=== PATIENT | female | born 1965 | race Caucasian/White ===

== ENCOUNTER 2020-06-04 16:01 | Outpatient (REF) | payer OTHER, SELFPAY ==
--- NOTE | 2020-06-04 17:06 | XR_ITS ---
EXAMINATION: XR KNEE, LEFT CLINICAL INFORMATION: Pain COMPARISON: None TECHNIQUE: Two views of the left knee. FINDINGS: Bones and soft tissues are normal. No fracture or joint effusion. Alignment is anatomic. Joint spaces are well maintained. No abnormal soft tissue calcification. XR/XR knee LT 2V IMPRESSION: Normal left knee.
== END 2020-06-04 16:02 | disposition home or self-care (01) ==
LOC: HO.XRAY 16:01
PROVIDERS: PCP Internal Medicine; Visit Provider Nurse Practitioner Family
DX: M25.562 Pain in left knee (principal)
CPT/HCPCS: 73560

== ENCOUNTER 2020-06-09 09:09 | Outpatient (REF) | payer OTHER, SELFPAY ==
[2020-06-09 09:33] LABS: MANUAL DIFF FLAG NO
[2020-06-09 09:34] LABS: Basophils Absolute Auto 0.1 X10*3/uL (0.0-0.2); Basophils Percent Auto 0.9 % (0-2); Eosinophils Absolute Auto 0.2 X10*3/uL (0.0-0.4); Eosinophils Percent Auto 2.9 % (0-4); Hematocrit 41.5 % (37-47); Imm Gran Abs Auto 0.01 X10*3/uL (0.00-0.03); Imm Gran Pct Auto 0.2 % (0.0-0.4); Lymphocytes Absolute Auto 1.7 X10*3/uL (1.2-4.9); Lymphocytes Percent Auto 31.8 % (20-40); Mean Corpuscular HGB Conc 31.3 g/dl (31.0-35.0); Mean Corpuscular Hemoglobin 24.6 pg (27.0-33.0); Mean Corpuscular Volume 78.4 fL (80-98); Mean Platelet Volume 10.8 fL (9.4-12.3); Monocytes Absolute Auto 0.5 X10*3/uL (0.1-1.2); Monocytes Percent Auto 9.9 % (2-11); Neutrophils Percent Auto 54.3 % (45-73); Platelet Count 281 X10*3/uL (160-400); Red Blood Count 5.29 X10*6/uL (4.20-5.50); Red Cell Distribution Width 14.3 % (11.0-16.0); White Blood Count 5.5 X10*3/uL (4.8-10.8)
[2020-06-09 09:55] LABS: Anion Gap 10 (12-20); Blood Urea Nitrogen 15 mg/dL (9-16); Calcium 8.6 mg/dL (8.4-10.2); Carbon Dioxide 29 mmol/L (22-29); Chloride 105 mmol/L (96-108); Estimated Glomerular Filt Rate > 60; Glucose Fasting 116 mg/dL (60-99); Potassium 4.2 mmol/l (3.3-5.1); Sodium 140 mmol/L (135-145)
[2020-06-09 10:34] LABS: Erythrocyte Sedimentation Rate 10 MM/HR (0-20)
== END 2020-06-09 09:10 | disposition home or self-care (01) ==
LOC: HO.LAB 09:09
PROVIDERS: PCP Internal Medicine; Visit Provider Nurse Practitioner Family
DX: M25.562 Pain in left knee (principal)
CPT/HCPCS: 36415; 80048; 85025; 85652

== ENCOUNTER 2020-08-28 06:21 | Outpatient (REF) | payer OTHER, SELFPAY ==
[2020-08-28 07:07] LABS: MANUAL DIFF FLAG NO
[2020-08-28 07:16] LABS: Basophils Percent Auto 0.5 % (0-2); Eosinophils Absolute Auto 0.2 X10*3/uL (0.0-0.4); Eosinophils Percent Auto 2.8 % (0-4); Hematocrit 40.4 % (37-47); Hemoglobin 12.7 g/dl (12.0-16.0); Imm Gran Abs Auto 0.02 X10*3/uL (0.00-0.03); Imm Gran Pct Auto 0.3 % (0.0-0.4); Lymphocytes Absolute Auto 1.8 X10*3/uL (1.2-4.9); Lymphocytes Percent Auto 29.1 % (20-40); Mean Corpuscular HGB Conc 31.4 g/dl (31.0-35.0); Mean Corpuscular Hemoglobin 24.7 pg (27.0-33.0); Mean Corpuscular Volume 78.6 fL (80-98); Mean Platelet Volume 11.2 fL (9.4-12.3); Monocytes Absolute Auto 0.6 X10*3/uL (0.1-1.2); Neutrophils Absolute Auto 3.4 X10*3/uL (2.0-8.3); Neutrophils Percent Auto 57.3 % (45-73); Platelet Count 284 X10*3/uL (160-400); Red Blood Count 5.14 X10*6/uL (4.20-5.50); Red Cell Distribution Width 14.6 % (11.0-16.0)
[2020-08-28 07:41] LABS: Alanine Aminotransferase 20 U/L (0-31); Alkaline Phosphatase 97 U/L (39-117); Anion Gap 13 (12-20); Aspartate Amino Transferase 16 U/L (5-31); Bilirubin Total 0.3 mg/dL (0.0-1.0); Blood Urea Nitrogen 18 mg/dL (9-16); Calcium 8.9 mg/dL (8.4-10.2); Carbon Dioxide 24 mmol/L (22-29); Chloride 105 mmol/L (96-108); Cholesterol 162 mg/dL; Estimated Glomerular Filt Rate > 60; Glucose Fasting 122 mg/dL (60-99); HDL Cholesterol 41 mg/dL; LDL Cholesterol Calculated 107 mg/dl; Potassium 4.4 mmol/l (3.3-5.1); Sodium 138 mmol/L (135-145); Triglycerides 72 mg/dL
== END 2020-08-28 06:22 | disposition home or self-care (01) ==
LOC: HO.LAB 06:21
PROVIDERS: Visit Provider Internal Medicine
DX: E78.5 Hyperlipidemia, unspecified (principal); R73.02 Impaired glucose tolerance (oral); R42 Dizziness and giddiness
CPT/HCPCS: 36415; 80053; 80061; 85025

== ENCOUNTER 2020-09-29 10:20 | Outpatient (REF) | payer OTHER, SELFPAY ==
--- NOTE | ~2020-09-29 | XR_ITS ---
EXAMINATION: XR LUMBOSACRAL SPINE CLINICAL INFORMATION: Left-sided sciatica COMPARISON: Previous x-ray from 2015 TECHNIQUE: Three views of the lumbosacral spine. FINDINGS: Bone alignment is normal. No fracture or dislocation is seen. There is mild degenerative spondylosis at L2-L3 and L3-L4. Disc spaces are normal. Paraspinal soft tissues are normal. XR/XR lumbar spine 2-3V IMPRESSION: Mild degenerative spondylosis at L2-L3 and L3-L4.
== END 2020-09-29 10:21 | disposition home or self-care (01) ==
LOC: HO.XRAY 10:20
PROVIDERS: PCP Internal Medicine; Visit Provider Internal Medicine
DX: M54.32 Sciatica, left side (principal)
CPT/HCPCS: 72100

== ENCOUNTER 2020-11-30 15:00 | Outpatient (RCR) | payer OTHER, SELFPAY ==
--- NOTE | 2020-10-29 16:17 | MHC.PT.EP ---
[facility] [place] Office [place] Office [place] Office [address] Adalid Berman [address] [phone] F: [phone] F: [phone] F: [phone] F: [phone] Physical Therapy Plan of Care Date of Evaluation: 10/29/20 Date of Surgery: NA Diagnosis: L SIDED SCIATICA Assessment: Pt IS 54 YO F REFERRED TO PT FROM DR ARRIETA WITH L SIDED SCIATICA. PRESENTS WITH C/O PAIN L LB WHICH STARTED ABOUT 1 MONTH AGO WHEN SHE BENT OVER TO PICK SOMETHING UP. Pt PRESENTS WITH SOME DECREASED LUMBAR AND LE FLEXIBILITY, DECREASED CORE STRENGTH, AND PAIN WITH TTP LUMBAR PARASPINALS AND GLUT MMS. Pt WORKS A [employer] 40HRS/WK. SHE SHOULD BENEFIT FROM PT TO ADDRESS THESE ISSUES. OF NOTE, Pt ALSO C/O BALANCE PROBLEM (WHICH SHE TAKES ANTIVERT FOR). MAY BENEFIT FROM VESTIBULAR EVAL Frequency and Duration: The patient will be seen 2X/WK X 6WKS Short Term Goals: 1.INCREASED POSTURE AWARENESS AND AWARENESS BACK CARE 2. Pt TO PERF 2-3 TASKS WITH PROPER BODY MECH Care Home Goals: 1. DECREASED BACK PAIN AT LEAST 50% WITH ADLS 2. I HEP WITH DC EX PLAN 3. IMPROVED MODIFIED OSWESTRY Treatment Plan: Modalities to reduce pain, spasms and effusion. Manual therapy to restore motion and function. Therapeutic exercise to improve strength and flexibility. Neuromuscular re-education for posture and balance. Therapeutic activities to return to functional activities of daily living. Electronically signed by: ANATOLIY CLARK PT Please sign and return to therapist. Thank you for your referral.
--- NOTE | 2020-12-01 09:32 | MHC.PT.DC ---
[facility] [place] Office [place] Office [place] Office [address] Adalid Berman [address] [phone] F: [phone] F: [phone] F: [phone] F: [phone] Physical Therapy Discharge Report Diagnosis: L SIDED SCIATICA Date of Surgery: NA Date of Evaluation: 10/29/20 Date of Discharge: 11/30/20 Treatments to Date: 6 Cancellations to Date: No Shows to Date: Discharge Status: Achieved Goals Independent with HEP Discharge Summary: GOOD PERF OF EXS AND STRETCHES, AGREES WITH DC Electronically signed by: ANATOLIY CLARK PT Please sign and return to therapist. Thank you for your referral.
== END 2020-12-01 09:33 | disposition other institution (70) ==
LOC: HO.PT 15:00
PROVIDERS: PCP Internal Medicine; Visit Provider Internal Medicine
DX: M54.32 Sciatica, left side (principal)
CPT/HCPCS: 97110; 97161

== ENCOUNTER 2021-03-01 15:45 | Outpatient (REF) | payer OTHER, SELFPAY ==
--- NOTE | ~2021-03-01 | MM_ITS ---
EXAMINATION: MM SCREENING DIGITAL BREAST TOMOSYNTHESIS, BILATERAL CLINICAL INFORMATION: Screening. Asymptomatic. The lifetime risk of breast cancer based on the Tyrer-Cuzick Model is 7%. COMPARISON: Mammography: 10/26/2018, 12/03/2016, 05/23/2016 TECHNIQUE: Digital breast tomosynthesis is performed in both the craniocaudal and mediolateral oblique views along with computer-aided detection (CAD). Synthesized 2D images are generated from the tomosynthesis. FINDINGS: There are scattered areas of fibroglandular density (ACR BI-RADS breast composition Category b). There are no significant masses, abnormal calcifications, or other abnormalities. There is a small circumscribed nodule again noted anterior 3:00 right breast similar to mildly decreased from prior exams. The axilla and skin contours are unremarkable. No significant changes. MM/MM tomosynthesis screening BI IMPRESSION: No mammographic evidence of malignancy. ASSESSMENT: BI-RADS 2: Benign RECOMMENDATION: Routine annual mammography screening. This patient's information was entered into a reminder system with a target due date for their next mammogram.
== END 2021-03-01 15:46 | disposition home or self-care (01) ==
LOC: HO.MAMMO 15:45
PROVIDERS: Visit Provider Internal Medicine
DX: Z12.31 Encounter for screening mammogram for malignant neoplasm of breast (principal)
CPT/HCPCS: 77063; 77067

== ENCOUNTER 2021-07-05 08:26 | Outpatient (REF) | payer OTHER, SELFPAY ==
[2021-07-05 09:04] LABS: Alanine Aminotransferase 22 U/L (0-31); Alkaline Phosphatase 102 U/L (39-117); Anion Gap 11 (12-20); Aspartate Amino Transferase 18 U/L (5-31); Bilirubin Total 0.4 mg/dL (0.0-1.0); Blood Urea Nitrogen 17 mg/dL (9-16); Calcium 9.4 mg/dL (8.4-10.2); Carbon Dioxide 25 mmol/L (22-29); Chloride 107 mmol/L (96-108); Estimated Glomerular Filt Rate > 60; Glucose Fasting 118 mg/dL (60-99); Potassium 4.4 mmol/L (3.3-5.1); Sodium 139 mmol/L (135-145)
== END 2021-07-05 08:27 | disposition home or self-care (01) ==
LOC: HO.LAB 08:26
PROVIDERS: PCP Internal Medicine; Visit Provider Internal Medicine
DX: R73.02 Impaired glucose tolerance (oral) (principal)
CPT/HCPCS: 36415; 80053

== ENCOUNTER 2021-08-17 09:14 | Outpatient (REF) | payer OTHER, SELFPAY ==
[2021-08-17 10:27] LABS: Alanine Aminotransferase 27 U/L (0-31); Albumin Level 4.1 g/dL (3.5-5.0); Alkaline Phosphatase 107 U/L (39-117); Anion Gap 9 (12-20); Aspartate Amino Transferase 18 U/L (5-31); Bilirubin Total 0.3 mg/dL (0.0-1.0); Blood Urea Nitrogen 14 mg/dL (9-16); Calcium 9.8 mg/dL (8.4-10.2); Carbon Dioxide 29 mmol/L (22-29); Chloride 107 mmol/L (96-108); Estimated Glomerular Filt Rate > 60; Glucose Fasting 118 mg/dL (60-99); Potassium 4.4 mmol/L (3.3-5.1); Sodium 141 mmol/L (135-145); Total Protein 7.4 g/dL (6.5-8.0)
== END 2021-08-17 09:15 | disposition home or self-care (01) ==
LOC: HO.LAB 09:14
PROVIDERS: Visit Provider Internal Medicine
DX: R73.02 Impaired glucose tolerance (oral) (principal)
CPT/HCPCS: 36415; 80053

== ENCOUNTER 2021-11-07 15:33 | Emergency (ER) | payer OTHER, SELFPAY ==
--- NOTE | ~2021-11-07 | CT_ITS ---
EXAMINATION: CT CERVICAL SPINE WITHOUT CONTRAST CLINICAL INFORMATION: C5-C6 radicular pain on the left side. COMPARISON: MRI scan of the cervical spine 03/09/2020. TECHNIQUE: A noncontrast axial CT scan of the cervical spine was obtained. Coronal and sagittal reformatted images were generated at the acquisition workstation. This CT examination was performed using dose optimization techniques as appropriate, variously including the following: *Automated exposure control *Adjustment of mA and/or kV according to patient size (this includes techniques or standardized protocols for targeted exams where dose is matched to indication/reason for exam; i.e. extremities or head) *Use of iterative reconstruction technique DLP: 426 mGy-cm FINDINGS: There is mild reversal of the cervical lordosis at C3-C4. There is narrowing of intervertebral disc height at multiple levels, most severe at C3-C4 and C5-C6. There are multilevel degenerative endplate contour changes. Vertebral body heights are maintained and no acute fractures are demonstrated. There may be a hemangioma in the right aspect of the body of C3. There is an area of sclerosis in the superior body of T1. There are mildly prominent level IIA lymph nodes bilaterally The other paravertebral soft tissues and the visualized intracranial contents are unremarkable. The lung apices are well-aerated. Spinal levels: C2-C3: There is moderate left facet arthropathy with suggestion of erosive changes. Posterior disc contour is normal. There is no central stenosis. The neural foramina are patent bilaterally. C3-C4: There is mild left facet arthropathy. There is a broad-based posterior disc protrusion with mild central stenosis. There are uncovertebral osteophytes, and there is moderate left and mild right foraminal narrowing. C4-C5: The facet joints appear normal. There is a small posterior disc protrusion with minimal central stenosis. The neural foramina appear patent bilaterally. C5-C6: The facet joints appear normal. The posterior disc osteophyte complex, with mild central stenosis. There are uncovertebral osteophytes, and there is moderate left and mild right foraminal narrowing. C6-C7: The facet joints appear normal. There is a posterior disc osteophyte complex, and there is mild central stenosis. There are uncovertebral osteophytes and there is mild bilateral foraminal narrowing. C7-T1: The facet joints appear normal bilaterally. Posterior disc contour is normal. There is no spinal cord compression or central stenosis. The neural foramina are patent bilaterally. CT/CT cervical spine wo con IMPRESSION: 1. There are no acute fractures or subluxations. 2. There is multilevel spondylosis with narrowing of intervertebral disc height at multiple levels and there are degenerative endplate contour changes. There is multilevel facet arthropathy. There is minimal central stenosis at C3-C4 and C4-C5. 3. There is moderate left and mild right foraminal narrowing at C3-C4 and C5-C6.
[2021-11-07 16:44] VITALS: BP 139/87; PULSE 91; RESP 18; TEMP 36.5; O2SAT 100; BMI 34.7
--- NOTE | 2021-11-07 16:51 | ECG_ITS ---
Test Reason : shoulder pain Blood Pressure : / mmHG Vent. Rate : 086 BPM Atrial Rate : 086 BPM P-R Int : 146 ms QRS Dur : 084 ms QT Int : 364 ms P-R-T Axes : 057 -01 034 degrees QTc Int : 435 ms Normal sinus rhythm Normal ECG No significant changes when compared with the previous EKG of 09 jul 2016 Referred By: Josias Josue Electronically Signed By:DAYNA YEH
[2021-11-07 17:14] LABS: MANUAL DIFF FLAG NO
[2021-11-07 17:15] LABS: Basophils Absolute Auto 0.1 X10*3/uL (0.0-0.2); Basophils Percent Auto 0.7 % (0-2); Eosinophils Absolute Auto 0.2 X10*3/uL (0.0-0.4); Eosinophils Percent Auto 3.2 % (0-4); Hematocrit 41.4 % (37.0-47.0); Hemoglobin 13.2 g/dl (12.0-16.0); Imm Gran Abs Auto 0.02 X10*3/uL (0.00-0.03); Imm Gran Pct Auto 0.3 % (0.0-0.4); Lymphocytes Absolute Auto 2.4 X10*3/uL (1.2-4.9); Lymphocytes Percent Auto 31.4 % (20-40); Mean Corpuscular HGB Conc 31.9 g/dl (31.0-35.0); Mean Corpuscular Hemoglobin 24.7 pg (27.0-33.0); Mean Corpuscular Volume 77.4 fL (80.0-98.0); Mean Platelet Volume 10.6 fL (9.4-12.3); Monocytes Absolute Auto 0.8 X10*3/uL (0.1-1.2); Monocytes Percent Auto 10.9 % (2-11); Neutrophils Percent Auto 53.5 % (45-73); Platelet Count 300 X10*3/uL (160-400); Red Blood Count 5.35 X10*6/uL (4.20-5.50); White Blood Count 7.5 X10*3/uL (4.8-10.8)
[2021-11-07 17:31] LABS: Anion Gap 13 (12-20); Blood Urea Nitrogen 18 mg/dL (9-16); Calcium 9.7 mg/dL (8.4-10.2); Carbon Dioxide 26 mmol/L (22-29); Chloride 105 mmol/L (96-108); Creatinine Clr Calc Pharmacy 86.1; Estimated Glomerular Filt Rate > 60; Glucose Random 76 mg/dL (60-115); Potassium 4.1 mmol/L (3.3-5.1); Sodium 140 mmol/L (135-145)
[2021-11-07 17:36] LABS: Troponin-I High Sensitivity < 3.5 ng/L (<3.5-17.0)
--- NOTE | 2021-11-07 18:40 | ED_ITS ---
HPI - General Adult General Chief complaint: General Medical Stated complaint: Head pain/shoulder pain Time Seen by Provider: 11/07/21 18:40 Source: patient Limitations: language barrier History of Present Illness HPI narrative: patient with no history of arthritis complaining of left side of the neck pain with radiation of pain to the left upper for last 3 weeks with tingling sensation no weakness no headache no nausea no vomiting patient taking Tylenol without any relief no chest pain or shortness of breath no cough Related Data Home Medications Medication Instructions Recorded Confirmed cromolyn 4 % eye drops 1 drp OPHTHALMIC (EYE) QID 06/04/20 08/28/21 fluticasone propionate 50 2 spray INTRANASAL DAILY 06/04/20 08/28/21 mcg/actuation nasal spray,suspension (Allergy Relief (fluticasone)) Previous Rx's Medication Instructions Recorded hydrocortisone 1 % topical cream 1 appl TOPICAL TID PRN 30 Days 03/07/21 (Anti-Itch (hydrocortisone)) #28.4 g ibuprofen 600 mg tablet 600 mg PO TID PRN 90 Days #270 tab 03/07/21 ketotifen fumarate 0.025 % (0.035 1 drp OPHTHALMIC (EYE) Q12H 15 03/07/21 %) eye drops (Allergy Eye Days #5 ml (ketotifen)) meclizine 25 mg tablet 25 mg PO TID PRN 90 Days #270 tab 03/07/21 triamcinolone acetonide 0.1 % 1 appl TOPICAL BID 30 Days #30 g 03/07/21 topical cream cholecalciferol (vitamin D3) 50 50 mcg PO DAILY 90 Days #90 cap 07/09/21 mcg (2,000 unit) capsule tizanidine 4 mg tablet 4 mg PO BEDTIME PRN 30 Days #30 tab 07/09/21 cyclobenzaprine 10 mg tablet 10 mg PO Q8H #20 tab 11/07/21 prednisone 20 mg tablet 40 mg PO DAILY #10 tab 11/07/21 tramadol 50 mg tablet 50 mg PO Q6H PRN #20 tab 11/07/21 Allergies Allergy/AdvReac Type Severity Reaction Status Date / Time Penicillins [PENICILLINS] Allergy Intermediate RASH Verified 11/07/21 16:44 seafood Allergy Intermediate Anaphylaxis Verified 11/07/21 16:44 Review of Systems Review of Systems: Yes all other systems are reviewed and are negative PMFSH Past Medical History Medical History Impaired glucose tolerance Knee pain Left knee pain Left sided sciatica Obesity (BMI 35.0-39.9 without comorbidity) Physical exam Vertigo Surgical History History of tubal ligation Skin cancer Family History Family History Father Throat cancer Mother Diabetes Hypertension Daughter In good health Sister In good health Son In good health Brother In good health Social History Social History Housing: Apartment Alcohol intake: current Alcohol intake frequency: holidays/special occasions only Alcohol type: wine Patient Tobacco Use Status: Never used Tobacco e-Cigarette/Vaping Use: Never Used Second Hand Smoke Exposure: No Advance Directives: No Advance Directives Information Provided: Yes Patient : No service: No Current occupational status: employed Current occupational exposures/hazards: No Physical Exam ED Vital Signs: Vital Signs - 24 hr 11/07/21 16:44 11/07/21 19:05 11/07/21 20:00 Temperature 97.7 F 97.8 F Pulse Rate 91 82 94 Respiratory Rate 18 18 15 Blood Pressure 139/87 141/86 H 130/90 H Pulse Oximetry 100 99 98 BMI result Body Mass Index 34.7 Appearance: Alert. Oriented X3. No acute distress. Eyes: PERRLA, No Nystagmus ENT: Pharynx normal. Oral Mucosa moist Neck: Normal inspection. Neck supple. tenderness in mid cervical area CVS: Normal heart rate and rhythm. Pulses normal. Respiratory: No respiratory distress. Equal air entry bilateral, no wheezing/rales/rhonchi Abdomen: Soft and nontender. Bowel sounds are present, no mass palpable, no CVA tenderness Skin: Skin warm and dry. Normal skin color. Normal skin turgor. Extremities: No lower extremity edema. No calf tenderness Neuro: Oriented X 3. No motor deficit. No sensory deficit.No cerebellar signs , cranial nerves II-XII intact Medical Decision Making MDM Narrative Medical decision making narrative: patient with left cervical radiculopathy involving C4-C6 area without any muscle weakness CT scan was done which confirms that will discharge patient home advised to follow with outpatient Lab Data Lab results reviewed: Yes I reviewed the patient's lab results. Result diagrams: 11/07/21 17:10 11/07/21 17:10 Labs: Lab Results 11/07/21 11/07/21 11/07/21 Range/Units 17:10 17:10 17:10 WBC 7.5 (4.8-10.8) X10*3/uL RBC 5.35 (4.20-5.50) X10*6/uL Hgb 13.2 (12.0-16.0) g/dl Hct 41.4 (37.0-47.0) % MCV 77.4 L (80.0-98.0) fL MCH 24.7 L (27.0-33.0) pg MCHC 31.9 (31.0-35.0) g/dl RDW 15.0 (11.0-16.0) % Plt Count 300 (160-400) X10*3/uL MPV 10.6 (9.4-12.3) fL Immature Gran % (Auto) 0.3 (0.0-0.4) % Neut % (Auto) 53.5 (45-73) % Lymph % (Auto) 31.4 (20-40) % Colbert % (Auto) 10.9 (2-11) % Eos % (Auto) 3.2 (0-4) % Baso % (Auto) 0.7 (0-2) % Lymph # (Auto) 2.4 (1.2-4.9) X10*3/uL Colbert # (Auto) 0.8 (0.1-1.2) X10*3/uL Eos # (Auto) 0.2 (0.0-0.4) X10*3/uL Baso # (Auto) 0.1 (0.0-0.2) X10*3/uL Abs Immat Gran (auto) 0.02 (0.00-0.03) X10*3/uL Absolute Neuts (auto) 4.0 (2.0-8.3) x10*3/uL Absolute Nucleated RBC 0.000 (0.0-0.012) X10*3/uL Nucleated RBC % (auto) 0.0 (0.0-0.2) /100WBC Sodium 140 (135-145) mmol/L Potassium 4.1 (3.3-5.1) mmol/L Chloride 105 (96-108) mmol/L Carbon Dioxide 26 (22-29) mmol/L Anion Gap 13 (12-20) BUN 18 H (9-16) mg/dL Creatinine 0.86 (0.5-1.4) mg/dL Estim Creat Clear Calc 86.1 Estimated GFR > 60 Random Glucose 76 (60-115) mg/dL Calcium 9.7 (8.4-10.2) mg/dL Troponin I High Sens < 3.5 (<3.5-17.0) ng/L Discharge Plan Discharge Clinical Impression: Cervical radicular pain Patient Disposition: Home, Self-Care Instructions: Cervical Radiculopathy (ED) Additional Instructions: rest at home pain medication muscle relaxant as advised prednisone for inflammation follow with PCP for further evaluation including MRI for physical therapy and surgical review Descansar en casa medicamento para el dolor relajante muscular seg?n lo recomendado prednisona para la inflamaci?n seguir con PCP para debra evaluaci?n adicional, incluida la resonancia magn?genaro para fisioterapia y revisi?n quir?rgica Prescriptions: New cyclobenzaprine 10 mg tablet 10 mg PO Q8H Qty: 20 0RF prednisone 20 mg tablet 40 mg PO DAILY Qty: 10 0RF tramadol 50 mg tablet 50 mg PO Q6H PRN (Reason: pain) Qty: 20 0RF No Action hydrocortisone [Anti-Itch (HC)] 1 % cream 1 appl topical TID PRN (Reason: skin irritation) 30 Days Qty: 28.4 0RF ibuprofen 600 mg tablet 600 mg PO TID PRN (Reason: fever or pain) 90 Days Qty: 270 1RF ketotifen fumarate [Allergy Eye (ketotifen)] 0.025 % (0.035 %) drops 1 drp ophthalmic (eye) Q12H 15 Days Qty: 5 1RF meclizine 25 mg tablet 25 mg PO TID PRN (Reason: dizziness) 90 Days Qty: 270 1RF triamcinolone acetonide 0.1 % cream 1 appl topical BID 30 Days Qty: 30 3RF cromolyn 4 % drops 1 drp ophthalmic (eye) QID 0RF fluticasone propionate [Allergy Relief (fluticasone)] 50 mcg/actuation spray,suspension 2 spray intranasal DAILY 0RF Rx Instructions: administer into each nostril cholecalciferol (vitamin D3) 50 mcg (2,000 unit) capsule 50 mcg PO DAILY 90 Days Qty: 90 3RF tizanidine 4 mg tablet 4 mg PO BEDTIME PRN (Reason: muscle spasticity) 30 Days Qty: 30 0RF Stand Alone Forms: Work/School Release Interventions: ED Discharge Assessment Last Done: 11/07/21 20:47 Discharge Date/Time: 11/07/21 20:49 Print Language: Mohawk
[2021-11-07 19:05] VITALS: BP 141/86; PULSE 82; RESP 18; TEMP 36.6; O2SAT 99
[2021-11-07 20:00] VITALS: BP 130/90; PULSE 94; RESP 15; O2SAT 98
[2021-11-07] MEDS: predniSONE 20 MG TABLET 40 MG PO (20:35)
== END 2021-11-07 20:49 | disposition home or self-care (01) ==
PROVIDERS: Emergency Provider Internal Medicine; PCP Internal Medicine
DX: M54.12 Radiculopathy, cervical region (principal); M54.2 Cervicalgia
CPT/HCPCS: 36415; 72125; 80048; 84484; 85025; 93005; 99284

== ENCOUNTER 2021-12-10 13:41 | Outpatient (RCR) | payer OTHER, SELFPAY ==
--- NOTE | 2021-12-10 18:09 | MHC.PT.EP ---
[facility] [place] Office [place] Office [place] Office [address] Adalid Berman [address] [phone] F: [phone] F: [phone] F: [phone] F: [phone] Physical Therapy Plan of Care Date of Evaluation: Date of Surgery: n/a Diagnosis: Cervicalgia Assessment: Pt is a pleasant 56yo F who presents to PT with L neck pain radiating into L UE. 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 Pt presents to PT with current impairments in pain, decreased cervical ROM all planes, radicular symptoms, soft tissue restrictions, and impaired posture. She is limited functionally by rotating her head, reaching with L UE, and overhead ADLs. She is a good candidate for skilled PT in order to address current impairments to facilitate return to PLOF. She will be seen 2x/week for 4 weeks and will be reassessed at that time. Frequency and Duration: The patient will be seen 2x/week for 4 weeks Short Term Goals: Pt will be I with HEP to promote self management of symptoms Pt will demonstrate improvements in postural awareness throughout the day Pt will have centralization of symptoms Drag Out Man Goals: Pt will demonstrate full ROM all planes of cervical spine Pt will perform overhead ADLs with minimal to no pain or compensation Pt will demonstrate improvements in function as evidenced by statistically significant improvement in Neck Pain Disability Index Questionnaire Treatment Plan: Modalities to reduce pain, spasms and effusion. Manual therapy to restore motion and function. Therapeutic exercise to improve strength and flexibility. Neuromuscular re-education for posture and balance. Therapeutic activities to return to functional activities of daily living. Electronically signed by: Gretchen Merritt, PT, DPT Please sign and return to therapist. Thank you for your referral.
--- NOTE | 2021-12-31 15:32 | MHC.PT.DC ---
[facility] [place] Office [place] Office [place] Office [address] Adalid Berman [address] [phone] F: [phone] F: [phone] F: [phone] F: [phone] Physical Therapy Discharge Report Diagnosis: Cervicalgia Date of Surgery: n/a Date of Evaluation: 12/10/21 Date of Discharge: 12/31/21 Treatments to Date: 1 Cancellations to Date: 3 No Shows to Date: Discharge Status: Patient Elected to Stop Discharge Summary: Pt attended initial PT evaluation on 12/10/21. Pt had 3 cancellations since initial PT evaluation. She called on 12/30/21 to cancel her appointment and requested to self D/C from PT due to bad seasonal allergies. Pt is being D/C from skilled PT per her request. Pt current level of function unknown at this time. Electronically signed by: Gretchen Merritt, PT, DPT Please sign and return to therapist. Thank you for your referral.
== END 2021-12-31 15:33 | disposition home or self-care (01) ==
LOC: HO.PT 13:41
PROVIDERS: PCP Internal Medicine; Visit Provider Nurse Practitioner Family
DX: M54.2 Cervicalgia (principal)
CPT/HCPCS: 97162

== ENCOUNTER 2021-12-23 11:27 | Emergency (ER) | payer OTHER, SELFPAY ==
[2021-12-23 12:46] VITALS: BP 137/85; PULSE 95; RESP 18; TEMP 37.1; O2SAT 100; BMI 34.2
== END 2021-12-23 19:27 | disposition left against medical advice (07) ==
PROVIDERS: Emergency Provider Emergency Medicine; PCP Internal Medicine
DX: R21 Rash and other nonspecific skin eruption (principal)
CPT/HCPCS: 99281

== ENCOUNTER 2022-01-07 16:31 | Outpatient (REF) | payer OTHER, SELFPAY ==
--- NOTE | ~2022-01-07 | MR_ITS ---
MR CERVICAL SPINE WITHOUT IV CONTRAST CLINICAL INFORMATION: Cervicalgia. COMPARISON: Cervical spine CT 11/07/2021. TECHNIQUE: MRI of the cervical spine was obtained using routine sequences without contrast. FINDINGS: Cervical alignment is maintained. The vertebral body heights are preserved. There is moderate to severe disc volume loss at C5-C6 which is unchanged. Moderate disc volume loss at C3-C4 is stable. There is new significant bone marrow edema within the left C2 and C3 facets that is most likely degenerative/inflammatory. There is also a left C2-C3 facet joint effusion. No additional bone marrow edema within the cervical spine. No acute fractures. Craniocervical junction is unremarkable. Cervical arterial flow voids are maintained. There are no significant extraspinal soft tissue findings. There are no cord signal changes. C2-C3: Uncovertebral joint spurring and facet arthropathy result in worsening mild to moderate left-sided foraminal stenosis. C3-C4: Disc osteophyte flattens the ventral cord, resulting in mild central canal stenosis. Uncovertebral joint spurring and facet arthropathy result in similar mild to moderate bilateral foraminal stenosis. C4-C5: Disc osteophyte mildly narrows the central canal. No significant foraminal stenosis. C5-C6: Slight annular disc bulges in part disc osteophyte mildly narrows the central canal. Uncovertebral joint hypertrophy and hypertrophic facet arthropathy result in progressive moderate left-sided foraminal stenosis. C6-C7: Disc osteophyte mildly narrows the central canal. No foraminal stenosis. C7-T1: Slight annular disc bulge. No central canal stenosis and no foraminal stenosis. MR/MR cervical spine wo con IMPRESSION: - At C2-C3, progressive multifactorial degenerative changes result in worsening mild to moderate left-sided foraminal stenosis. There is new significant bone marrow edema within the left C2 and C3 facets that is most likely degenerative/inflammatory. There is also a left C2-C3 facet joint effusion. - At C5-C6, progressive spondylitic changes result in worsening moderate left-sided foraminal stenosis. - Additional stable mild to moderate spondylitic changes throughout the cervical spine as described. There is no severe central canal stenosis within the cervical spine.
== END 2022-01-07 16:32 | disposition home or self-care (01) ==
LOC: HO.MRI 16:31
PROVIDERS: Visit Provider Nurse Practitioner Family
DX: M54.2 Cervicalgia (principal)
CPT/HCPCS: 72141

== ENCOUNTER → 2022-02-19 14:42 | Outpatient (BNVA) | payer OTHER, SELFPAY | PROVIDERS: PCP Internal Medicine; Visit Provider Nurse Practitioner Family | DX: M47.22 Other spondylosis with radiculopathy, cervical region (principal); S16.1XXA Strain of muscle, fascia and tendon at neck level, initial encounter | CPT/HCPCS: 99202 ==

== ENCOUNTER 2022-03-04 14:00 | Outpatient (REF) | payer OTHER, SELFPAY ==
--- NOTE | ~2022-03-04 | MM_ITS ---
EXAMINATION: MM SCREENING DIGITAL BREAST TOMOSYNTHESIS, BILATERAL CLINICAL INFORMATION: Screening. Asymptomatic. The lifetime risk of breast cancer based on the Tyrer-Cuzick Model is 6.3%. COMPARISON: Mammography: March 01, 2021 and studies dating back to October 06, 2015 TECHNIQUE: Digital breast tomosynthesis is performed in both the craniocaudal and mediolateral oblique views along with computer-aided detection (CAD). Synthesized 2D images are generated from the tomosynthesis. FINDINGS: There are scattered areas of fibroglandular density (ACR BI-RADS breast composition Category b). There are no significant masses, abnormal calcifications, or other abnormalities. MM/MM tomosynthesis screening BI IMPRESSION: There are no significant changes from prior study. ASSESSMENT: BI-RADS 1: Negative RECOMMENDATION: Routine annual mammography screening. This patient's information was entered into a reminder system with a target due date for their next mammogram.
== END 2022-03-04 14:01 | disposition home or self-care (01) ==
LOC: HO.MAMMO 14:00
PROVIDERS: PCP Internal Medicine; Visit Provider Internal Medicine
DX: Z12.31 Encounter for screening mammogram for malignant neoplasm of breast (principal)
CPT/HCPCS: 77063; 77067

== ENCOUNTER 2022-06-17 10:02 | Outpatient (REF) | payer OTHER, SELFPAY ==
[2022-06-17 10:25] LABS: MANUAL DIFF FLAG NO
[2022-06-17 11:12] LABS: Basophils Percent Auto 0.7 % (0-2); Eosinophils Absolute Auto 0.2 X10*3/uL (0.0-0.4); Eosinophils Percent Auto 3.2 % (0-4); Hematocrit 41.5 % (37.0-47.0); Hemoglobin 13.1 g/dl (12.0-16.0); Imm Gran Abs Auto 0.01 X10*3/uL (0.00-0.03); Imm Gran Pct Auto 0.2 % (0.0-0.4); Lymphocytes Absolute Auto 1.7 X10*3/uL (1.2-4.9); Lymphocytes Percent Auto 31.1 % (20-40); Mean Corpuscular HGB Conc 31.6 g/dl (31.0-35.0); Mean Corpuscular Hemoglobin 24.6 pg (27.0-33.0); Mean Corpuscular Volume 77.9 fL (80.0-98.0); Mean Platelet Volume 11.2 fL (9.4-12.3); Monocytes Absolute Auto 0.6 X10*3/uL (0.1-1.2); Neutrophils Absolute Auto 3.1 x10*3/uL (2.0-8.3); Neutrophils Percent Auto 54.8 % (45-73); Platelet Count 267 X10*3/uL (160-400); Red Blood Count 5.33 X10*6/uL (4.20-5.50); White Blood Count 5.6 X10*3/uL (4.8-10.8)
[2022-06-17 11:54] LABS: Vitamin D 25-OH Total 23.7 ng/mL (>30)
[2022-06-17 11:56] LABS: Alanine Aminotransferase 21 U/L (0-31); Alkaline Phosphatase 97 U/L (39-117); Anion Gap 14 (12-20); Aspartate Amino Transferase 19 U/L (5-31); Bilirubin Total 0.3 mg/dL (0.0-1.0); Blood Urea Nitrogen 15 mg/dL (9-16); Calcium 9.2 mg/dL (8.4-10.2); Carbon Dioxide 23 mmol/L (22-29); Chloride 107 mmol/L (96-108); Estimated Glomerular Filt Rate > 60; Glucose Random 93 mg/dL (60-115); Potassium 4.1 mmol/L (3.3-5.1); Rheumatoid Factor < 15.0 IU/mL (<15.0); Sodium 140 mmol/L (135-145); Total Protein 7.1 g/dL (6.5-8.0)
[2022-06-17 12:07] LABS: Erythrocyte Sedimentation Rate 12 MM/HR (0-20)
[2022-06-18 11:32] LABS: CRP High Sensitivity 8.6 mg/L
[2022-06-18 13:31] LABS: Cyclic Citrullinated Peptide <16 UNITS
[2022-06-18 17:27] LABS: Lyme Abs Screen <0.90 index
[2022-06-19 13:16] LABS: Anti Nuclear Antibody Screen NEGATIVE (NEGATIVE)
== END 2022-06-17 10:03 | disposition home or self-care (01) ==
LOC: HO.LAB 10:02
PROVIDERS: PCP Internal Medicine; Visit Provider Internal Medicine
DX: M25.50 Pain in unspecified joint (principal); D64.9 Anemia, unspecified; E55.9 Vitamin D deficiency, unspecified
CPT/HCPCS: 36415; 80053; 82306; 83735; 85025; 85652; 86038; 86039; 86141; 86200; 86431; 86617; 86618

== ENCOUNTER → 2022-06-26 14:09 | Outpatient (BNVA) | payer OTHER, SELFPAY | PROVIDERS: PCP Internal Medicine; Referring Provider Internal Medicine; Visit Provider Student in an Organized Health Care Education/Training Program | DX: G56.01 Carpal tunnel syndrome, right upper limb (principal); L85.3 Xerosis cutis | CPT/HCPCS: 99202 ==

== ENCOUNTER 2022-08-16 09:16 | Outpatient (REF) | payer SELFPAY ==
[2022-08-16 10:28] LABS: Alanine Aminotransferase 21 U/L (0-31); Albumin Level 4.1 g/dL (3.5-5.0); Alkaline Phosphatase 95 U/L (39-117); Anion Gap 13 (12-20); Aspartate Amino Transferase 17 U/L (5-31); Bilirubin Total 0.4 mg/dL (0.0-1.0); Blood Urea Nitrogen 16 mg/dL (9-16); Calcium 9.7 mg/dL (8.4-10.2); Carbon Dioxide 26 mmol/L (22-29); Chloride 107 mmol/L (96-108); Cholesterol 184 mg/dL; Estimated Glomerular Filt Rate > 60; Glucose Fasting 116 mg/dL (60-99); HDL Cholesterol 43 mg/dL; LDL Cholesterol Calculated 121 mg/dl; Potassium 4.5 mmol/L (3.3-5.1); Sodium 141 mmol/L (135-145); Total Protein 7.2 g/dL (6.5-8.0); Triglycerides 103 mg/dL
[2022-08-20 14:37] LABS: Vitamin D 25-OH, D2 <4 ng/mL; Vitamin D 25-OH, D3 23 ng/mL; Vitamin D 25-OH, Total 23 ng/mL (30-100)
== END 2022-08-16 09:17 | disposition home or self-care (01) ==
LOC: HO.LAB 09:16
PROVIDERS: Visit Provider Internal Medicine
DX: E66.9 Obesity, unspecified (principal); E55.9 Vitamin D deficiency, unspecified
CPT/HCPCS: 36415; 80053; 80061; 82306

== ENCOUNTER 2022-12-06 08:45 | Emergency (ER) | payer OTHER, SELFPAY ==
[2022-12-06 08:48] VITALS: BP 145/90; PULSE 102; RESP 22; TEMP 36.8; O2SAT 99; BMI 33.3
--- NOTE | 2022-12-06 09:38 | ED.EYEPROB ---
HPI - Eye Problem General Chief complaint: Eye Problems Stated complaint: both eyes redness Time Seen by Provider: 12/06/22 09:13 Source: patient Mode of arrival: ambulatory Limitations: no limitations History of Present Illness HPI Narrative: 57-year-old female presents to the emergency department with chief complaint of worsening seasonal allergies. Patient taking Atarax and using [id number] eyedrops however not improving. Patient tells me she gets this every year, reports she has runny eyes, runny nose, particularly when she goes outside. Patient denies fevers, chills, chest pain, shortness of breath, visual disturbances, pain with eye movements, nausea, vomiting, abdominal pain, dizziness. Related Data Previous Rx's Medication Instructions Recorded ketotifen fumarate 0.025 % (0.035 1 drp ophthalmic (eye) Q12H 15 03/07/21 %) eye drops (Allergy Eye days #5 mL (ketotifen)) tizanidine 4 mg tablet 4 mg PO BEDTIME PRN muscle 02/19/22 spasticity 30 days #30 tabs wrist splint #1 ea 06/26/22 cholecalciferol (vitamin D3) 50 50 mcg PO DAILY 90 days #90 caps 08/20/22 mcg (2,000 unit) capsule ibuprofen 600 mg tablet 600 mg PO TID PRN fever or pain 90 09/05/22 days #270 tabs fluticasone propionate 50 2 spray intranasal DAILY #16 grams 11/26/22 mcg/actuation nasal spray,suspension (Allergy Relief (fluticasone)) hydroxyzine HCl 25 mg tablet 25 mg PO BID PRN itching 30 days 12/01/22 #60 tabs meclizine 25 mg tablet 25 mg PO TID PRN dizziness 90 days 12/05/22 #270 tabs fluticasone propionate 50 1 spray intranasal DAILY #16 grams 12/06/22 mcg/actuation nasal spray,suspension (Flonase Allergy Relief) loratadine 10 mg tablet 10 mg PO DAILY #30 tabs 12/06/22 prednisone 20 mg tablet 20 mg PO DAILY 5 days #5 tabs 12/06/22 Allergies Allergy/AdvReac Type Severity Reaction Status Date / Time Penicillins [PENICILLINS] Allergy Intermediate RASH Verified 08/28/22 17:41 seafood Allergy Intermediate Anaphylaxis Verified 08/28/22 17:41 Review of Systems Review of Systems: Constitutional : No Weight loss, No Fever, No Chills, No Fatigue, No Malaise ENT/Mouth : No sore throat, + Rhinorrhea Eyes: No Eye Pain, No Swelling, + Redness Cardiovascular : No Chest Pain, No SOB, No Dyspnea on Exertion, No Orthopnea, No Edema, No Palpitations Respiratory : No Cough, No Sputum, No Wheezing Gastrointestinal : No Nausea, No Vomiting, No Diarrhea, No Constipation, No abdominal Pain, No Hematochezia, No Melena Genitourinary : No Dysuria, No Urinary Frequency, No Hematuria, Musculoskeletal : No joint pain, No Myalgias, No Joint Swelling Skin : No Skin Lesions, No rash Neuro : No Weakness, No Numbness, No Dizziness, No Headache Psych : No Anxiety/Panic, No Depression All other systems reviewed and are negative Yes all other systems are reviewed and are negative [facility] Past Medical History Attestation statement: The following information was validated with the patient. Source: old records reviewed and nursing notes reviewed Medical History Impaired glucose tolerance Knee pain Left knee pain Left sided sciatica Obesity (BMI 35.0-39.9 without comorbidity) Physical exam Vertigo Surgical History History of tubal ligation Skin cancer Family History Family History Father Throat cancer Mother Diabetes Hypertension Daughter In good health Sister In good health Son In good health Brother In good health Social History Social History Housing: Apartment Alcohol intake: current Alcohol intake frequency: holidays/special occasions only Alcohol type: wine Patient Tobacco Use Status: Never used Tobacco e-Cigarette/Vaping Use: Never Used Second Hand Smoke Exposure: No Advance Directives: No Advance Directives Information Provided: No service: No Current occupational status: employed 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 Oriented X3.? No acute distress.? Head: Normocephalic, atraumatic, no step-offs or deformities Eyes: Pupils equal, round and reactive to light.?EOMI pain free. B/l conjunctiva injected Neck: Normal inspection.? Neck supple.? CVS: Normal heart rate and rhythm.? Pulses normal.? Respiratory: No respiratory distress.? Breath sounds normal.? Abdomen: Soft and nontender.? Skin: Skin warm and dry.? Normal skin color.? Normal skin turgor.? Extremities: No lower extremity edema.? No calf ttp. 5/5 strength to bilateral upper and lower extremities Neuro: Oriented X 3.? No motor deficit.? No sensory deficit. CN 2-12 intact Course Reevaluation(s) Reevaluation #1: Educated patient on diagnosis and treatment plan, answered all question, patient verbalizes understanding. At this time patient will be discharged home, advised to return with new or worsening symptoms. Educated on worrisome signs and symptoms and when to return. At this time I feel comfortable discharge home. Time: 09:41 Medical Decision Making Medical Decision Making [facility] Narrative: 0946 49-year-old female presents the chief complaint of worsening seasonal allergies. In reporting rhinorrhea, runny eyes. Physical examination bilateral conjunctiva appear injected. Eye movements intact and pain-free. Regular rate and rhythm. Lungs clear. Abdomen soft nontender nondistended. Vital is stable Likely seasonal allergies versus viral illness. I do not suspect bacterial conjunctivitis. No signs of acute closed angle glaucoma wet macular degeneration. No signs of periorbital or orbital cellulitis Plan will discharge patient home on loratadine, short course of prednisone and Flonase. Differential Diagnosis Differential Diagnoses: The differential diagnosis associated with the presentation includes Likely seasonal allergies versus viral illness. I do not suspect bacterial conjunctivitis. No signs of acute closed angle glaucoma wet macular degeneration. No signs of periorbital or orbital cellulitis Core Measures AMI core measures followed: Yes Measure exclusions: not indicated Discharge Plan Discharge Clinical Impression: Seasonal allergies Patient Disposition: Home, Self-Care Instructions: Allergic Rhinitis (DC), Allergies (ED), How to Use Nasal [place] (ED) Additional Instructions: Take your medications as prescribed. If you were prescribed antibiotics today, it is important that you take your medication to their entirety, do not skip any doses, do not finish them early. Follow-up with your primary care provider this week. Return to the emergency department with new or worsening symptoms. Such as fevers, chills, chest pain, shortness of breath, nausea, vomiting, dizziness, headache, vision changes, lethargy In case of emergency call 911 Prescriptions: New loratadine 10 mg tablet 10 mg PO DAILY Qty: 30 2RF fluticasone propionate [Flonase Allergy Relief] 50 mcg/actuation spray,suspension 1 spray intranasal DAILY Qty: 16 0RF Rx Instructions: administer into each nostril prednisone 20 mg tablet 20 mg PO DAILY 5 Days Qty: 5 0RF No Action ketotifen fumarate [Allergy Eye (ketotifen)] 0.025 % (0.035 %) drops 1 drp ophthalmic (eye) Q12H 15 Days Qty: 5 1RF cholecalciferol (vitamin D3) 50 mcg (2,000 unit) capsule 50 mcg PO DAILY 90 Days Qty: 90 3RF ibuprofen 600 mg tablet 600 mg PO TID PRN (Reason: fever or pain) 90 Days Qty: 270 1RF fluticasone propionate [Allergy Relief (fluticasone)] 50 mcg/actuation spray,suspension 2 spray intranasal DAILY Qty: 16 0RF Rx Instructions: administer into each nostril hydroxyzine HCl 25 mg tablet 25 mg PO BID PRN (Reason: itching) 30 Days Qty: 60 0RF meclizine 25 mg tablet 25 mg PO TID PRN (Reason: dizziness) 90 Days Qty: 270 3RF tizanidine 4 mg tablet 4 mg PO BEDTIME PRN (Reason: muscle spasticity) 30 Days Qty: 30 0RF (DME) wrist splint See Rx Instructions .Route .MEDSUPPLY Qty: 1 0RF Rx Instructions: wear it as much as possible throughout the day Referrals: Luanne Storey MD [Primary Care Provider] - 2 days
[2022-12-06 09:41] VITALS: BP 144/94; PULSE 94; RESP 16; O2SAT 100
--- NOTE | 2022-12-06 09:44 | PC.NURSE ---
Patient presents with drainage from nose and eyes, patient also with redness to bilateral eyes, left worse than right; states that this happens every year around this time and that she has been taking medications for her allergies but it isn't helping at this time.
== END 2022-12-06 09:47 | disposition home or self-care (01) ==
PROVIDERS: Emergency Provider Emergency Medicine; PCP Internal Medicine
DX: J30.2 Other seasonal allergic rhinitis (principal)
CPT/HCPCS: 99283; 99284

== ENCOUNTER 2023-02-21 06:58 | Outpatient (REF) | payer OTHER, SELFPAY ==
[2023-02-21 08:06] LABS: Alanine Aminotransferase 22 U/L (0-31); Albumin Level 3.9 g/dL (3.5-5.0); Alkaline Phosphatase 92 U/L (39-117); Anion Gap 10 (12-20); Aspartate Amino Transferase 16 U/L (5-31); Bilirubin Total 0.4 mg/dL (0.0-1.0); Blood Urea Nitrogen 15 mg/dL (9-16); Calcium 9.9 mg/dL (8.4-10.2); Carbon Dioxide 27 mmol/L (22-29); Chloride 107 mmol/L (96-108); Estimated Glomerular Filt Rate > 60; Glucose Fasting 115 mg/dL (60-99); Potassium 3.9 mmol/L (3.3-5.1); Sodium 140 mmol/L (135-145)
== END 2023-02-21 06:59 | disposition home or self-care (01) ==
LOC: HO.LAB 06:58
PROVIDERS: PCP Internal Medicine; Visit Provider Internal Medicine
DX: R73.02 Impaired glucose tolerance (oral) (principal)
CPT/HCPCS: 36415; 80053

== ENCOUNTER 2023-03-09 16:08 | Outpatient (AMB) | payer OTHER, SELFPAY ==
[2023-03-09 16:14] VITALS: BP 136/72; BMI 36.1
--- NOTE | 2023-03-09 16:14 | MHC.PC.OV ---
Vital Signs 03/09/23 16:14 Height 5 ft 5 in Weight 217 lb BMI 36.1 BP 136/72 Blood Pressure Location Lt brachial Position Sitting Intake Visit Reasons: GLUCOSE 6 MONTHS Intake Note: Patient here for a 6 month follow up Glucose, dizziness, c/o left leg/knee pain and swelling Enhanced Environmental Operator Required: No Accompanied by: Self / Same As Patient Allergies Penicillins [PENICILLINS] Allergy (Intermediate, Verified 03/09/23 16:32) RASH seafood Allergy (Intermediate, Verified 03/09/23 16:32) Anaphylaxis Medication List - Last Reconciled 03/09/23 by Luanne Zazueta MD cholecalciferol (vitamin D3) 50 mcg PO DAILY 90 days fluticasone propionate 50 mcg/actuation (Flonase Allergy Relief) 1 spray intranasal DAILY fluticasone propionate 50 mcg/actuation (Allergy Relief (fluticasone)) 2 sprays intranasal DAILY hydroxyzine HCl 25 mg PO BID PRN 30 days ibuprofen 600 mg PO TID PRN 90 days ketotifen fumarate 0.025%(0.035%) (Allergy Eye (ketotifen)) 1 drp ophthalmic (eye) Q12H 15 days loratadine 10 mg PO DAILY meclizine 25 mg PO TID PRN 90 days tizanidine 4 mg PO BEDTIME PRN 30 days [wrist splint wear it as much as possible throughout the day] Tobacco use date assessed: 08/28/22 Dental Screening Dental Screen Date: 03/09/23 Did you have a dental visit in the last 12 months?: No Did you have a dental problem in the last 6 months where you did not have access to dental care?: No Was dental information given to patient?: Yes HPI HPI Comments History of Present Illness Details This is a 57-year-old female with impaired glucose tolerance, vertigo, sciatica and low vitamin-D that comes today for follow-up on her conditions. Blood glucose not significantly changed. Denies any polyuria or polydipsia. No weight loss. Vertigo stable with meclizine as needed. Still complains of left sciatica the bothers her. I recommend to continue ibuprofen and tizanidine as needed. On supplements for low vitamin-D. No chest pain or shortness of breath. Doing well. [facility] Medical History Impaired glucose tolerance Knee pain Left knee pain Left sided sciatica Obesity (BMI 35.0-39.9 without comorbidity) Physical exam Vertigo Surgical History History of tubal ligation Skin cancer Family History Father Throat cancer Mother Diabetes Hypertension Daughter In good health Sister In good health Son In good health Brother In good health Social History Housing: Apartment Alcohol intake: never Patient Tobacco Use Status: Never used Tobacco e-Cigarette/Vaping Use: Never Used Second Hand Smoke Exposure: No service: No Current occupational status: employed 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 Ryan Hart, Meme Amaya, Bennett Singh and colleagues, with an educational syeda from [employer]. Review of Systems Const All systems reviewed & are unremarkable except as noted in HPI and below Eyes Reports no additional complaints, Denies change in vision and Denies other visual disturbances Card Denies chest pain at rest, Denies chest pain with activity, Denies edema, Denies irregular heart rhythm, Denies claudication, Denies dyspnea, Denies dyspnea on exertion, Denies orthopnea, Denies paroxysmal nocturnal dyspnea and Denies slow heart rate Resp Denies cough, Denies dyspnea and Denies dyspnea on exertion GI Denies abdominal pain, Denies change in bowel habits, Denies excessive flatus, Denies nausea and Denies vomiting Denies urinary incontinence, Denies urinary hesitancy and Denies urinary urgency Musc Denies abnormal gait, Denies atrophy, Denies deformity and Denies limited range of motion Skin/Breast Denies bleeding lesions, Denies changing lesions and Denies rash Neuro Denies abnormal gait and Denies lack of coordination Physical exam (Primary Care) Vital Signs: Last Vital Signs BP 136/72 03/09/23 16:14 BMI result Body Mass Index 36.1 Tobacco/Smoking Status: Tobacco use Status Tobacco use date assessed 08/28/22 03/09/23 16:25 Patient Tobacco Use Status Never used Tobacco 03/09/23 16:25 e-Cigarette/Vaping Use Never Used 03/09/23 16:25 Thrive Assessment: Date of Thrive Assessment Date Thrive assessed 08/28/22 03/09/23 16:25 Eyes General: appearance normal, both eyes and all related structures Eyelids: Yes eyelids normal Conjunctivae: conjunctivae normal Neck Neck: Yes normal visual inspection and Yes supple Resp Effort & Inspection: normal respiratory effort Auscultation: clear to auscultation bilaterally Cardio Jugular venous distension: no JVD Rate: regular rate Rhythm: regular rhythm Heart sounds: S1 normal heart sound present and S2 normal heart sound present Extrem General: Yes full ROM Assessment and Plan Assessment & Plan (1) BPPV (benign paroxysmal positional vertigo): Code(s): H81.10 - Benign paroxysmal vertigo, unspecified ear Plan: Continue meclizine as needed (2) Hypovitaminosis D: Code(s): E55.9 - Vitamin D deficiency, unspecified Plan: Continue vitamin-D supplement (3) Impaired glucose tolerance: Code(s): R73.02 - Impaired glucose tolerance (oral) Plan: Monitor blood glucose (4) Left knee pain: Code(s): M25.562 - Pain in left knee Plan: Continue ibuprofen as needed Coding Level of Care Code Est Pt Level 4 (47492) Diagnoses BPPV (benign paroxysmal positional vertigo) H81.10 Hypovitaminosis D E55.9 Impaired glucose tolerance R73.02 Left knee pain M25.562 Time Spent (min) 22
== END 2023-03-09 16:38 | disposition home or self-care (01) ==
PROVIDERS: Visit Provider Internal Medicine
DX: H81.10 Benign paroxysmal vertigo, unspecified ear (principal); E55.9 Vitamin D deficiency, unspecified; R73.02 Impaired glucose tolerance (oral); M25.562 Pain in left knee
CPT/HCPCS: 99214

== ENCOUNTER 2023-03-26 09:12 | Outpatient (AMB) | payer OTHER, SELFPAY ==
[2023-03-26 09:24] VITALS: BP 136/90; PULSE 81; O2SAT 97; BMI 34.8
--- NOTE | 2023-03-26 09:24 | MHC.PC.OV ---
Vital Signs 03/26/23 09:24 03/26/23 12:15 Height 5 ft 5 in Weight 209 lb 4 oz BMI 34.8 BP 136/90 H 136/80 Blood Pressure Location Lt brachial Lt brachial Position Sitting Sitting Pulse 81 Pulse Source Pulse Oximeter Pulse Oximetry (%) 97 Oxygen Delivery Method Room Air Intake Visit Reasons: pt requesting to be seen-pain again under neck Intake Note: Pt is here for sore throat. Pt feels pain when she swallow. Supervisor [place] Required: No Accompanied by: Self / Same As Patient Allergies Penicillins [PENICILLINS] Allergy (Intermediate, Verified 03/26/23 09:41) RASH seafood Allergy (Intermediate, Verified 03/26/23 09:41) Anaphylaxis Medication List - Last Reconciled 03/26/23 by Luanne Zazueta MD cholecalciferol (vitamin D3) 50 mcg PO DAILY 90 days fluticasone propionate 50 mcg/actuation (Flonase Allergy Relief) 1 spray intranasal DAILY hydroxyzine HCl 25 mg PO BID PRN 30 days ibuprofen 600 mg PO TID PRN 90 days ketotifen fumarate 0.025%(0.035%) (Allergy Eye (ketotifen)) 1 drp ophthalmic (eye) Q12H 15 days loratadine 10 mg PO DAILY meclizine 25 mg PO TID PRN 90 days tizanidine 4 mg PO BEDTIME PRN 30 days [wrist splint wear it as much as possible throughout the day] Tobacco use date assessed: 08/28/22 Dental Screening Dental Screen Date: 03/26/23 Did you have a dental visit in the last 12 months?: No Did you have a dental problem in the last 6 months where you did not have access to dental care?: No Was dental information given to patient?: Yes HPI HPI Comments History of Present Illness Details This is a 57-year-old female with left-sided sciatica, vertigo and impaired glucose tolerance that complains of difficulty swallowing that started for about a month. I will order barium swallow to rule out any abnormality. 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 Sometimes has hoarse voice due to this matter. Left thigh sciatica he is stable with ibuprofen as needed. Vertigo also well control with meclizine as needed. Fasting blood glucose elevated but she denies any polyuria, polydipsia or unintentional weight loss. REPLACED BY [facility] Medical History (Updated 03/26/23 @ 09:44 by Luanne Zazueta MD) Impaired glucose tolerance Knee pain Left knee pain Left sided sciatica Obesity (BMI 35.0-39.9 without comorbidity) Physical exam Vertigo Surgical History History of tubal ligation Skin cancer Family History Father Throat cancer Mother Diabetes Hypertension Daughter In good health Sister In good health Son In good health Brother In good health Social History Housing: Apartment Alcohol intake: never Patient Tobacco Use Status: Never used Tobacco e-Cigarette/Vaping Use: Never Used Second Hand Smoke Exposure: No service: No Current occupational status: employed 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 Ryan Hart, Meme Amaya, Bennett Singh and colleagues, with an educational syeda from [employer]. Review of Systems Const All systems reviewed & are unremarkable except as noted in HPI and below Eyes Reports no additional complaints, Denies change in vision and Denies other visual disturbances Card Denies chest pain at rest, Denies chest pain with activity, Denies edema, Denies irregular heart rhythm, Denies claudication, Denies dyspnea, Denies dyspnea on exertion, Denies orthopnea, Denies paroxysmal nocturnal dyspnea and Denies slow heart rate Resp Denies cough, Denies dyspnea and Denies dyspnea on exertion GI Denies abdominal pain, Denies change in bowel habits, Denies excessive flatus, Denies nausea and Denies vomiting Denies urinary incontinence, Denies urinary hesitancy and Denies urinary urgency Musc Denies abnormal gait, Denies atrophy, Denies deformity and Denies limited range of motion Skin/Breast Denies bleeding lesions, Denies changing lesions and Denies rash Neuro Denies abnormal gait and Denies lack of coordination Physical exam (Primary Care) Vital Signs: Last Vital Signs Pulse 81 03/26/23 09:24 BP 136/90 H 03/26/23 09:24 Pulse Ox 97 03/26/23 09:24 Oxygen Delivery Method Room Air 03/26/23 09:24 BMI result Body Mass Index 34.8 Tobacco/Smoking Status: Tobacco use Status Tobacco use date assessed 08/28/22 03/26/23 09:24 Patient Tobacco Use Status Never used Tobacco 03/26/23 09:24 e-Cigarette/Vaping Use Never Used 03/26/23 09:24 Thrive Assessment: Date of Thrive Assessment Date Thrive assessed 08/28/22 03/26/23 09:24 Eyes General: appearance normal, both eyes and all related structures Eyelids: Yes eyelids normal Conjunctivae: conjunctivae normal Neck Neck: Yes normal visual inspection and Yes supple Resp Effort & Inspection: normal respiratory effort Auscultation: clear to auscultation bilaterally Cardio Jugular venous distension: no JVD Rate: regular rate Rhythm: regular rhythm Heart sounds: S1 normal heart sound present and S2 normal heart sound present Extrem General: Yes full ROM Results AMB Hemoglobin A1c AMB Hemoglobin A1c 5.8 % Last Edit by DEVIN Siddiqui on 03/26/23 09:39 Results Reviewed Results Reviewed: Laboratory Last Values Hgb A1c (Clinic) 5.8 % (4.0-6.0) 03/26/23 09:25 Assessment and Plan Assessment & Plan (1) Vertigo: Code(s): R42 - Dizziness and giddiness Plan: Continue meclizine as needed. (2) Impaired glucose tolerance: Code(s): R73.02 - Impaired glucose tolerance (oral) Plan: Monitor blood glucose. Advise low-carbohydrate diet. (3) Left sided sciatica: Code(s): M54.32 - Sciatica, left side Plan: Continue ibuprofen as needed. (4) Dysphagia: Code(s): R13.10 - Dysphagia, unspecified Plan: Jamie swallow ordered Orders: Orders [place] barium swallow Today R13.10 - Dysphagia, unspecified AMB Hemoglobin A1c Today Z13.1 - Encounter for screening for diabetes mellitus Coding Level of Care Code Est Pt Level 4 (71692) Diagnoses Vertigo R42 Impaired glucose tolerance R73.02 Left sided sciatica M54.32 Dysphagia R13.10 Time Spent (min) 23
[2023-03-26 12:15] VITALS: BP 136/80
== END 2023-03-26 09:48 | disposition home or self-care (01) ==
PROVIDERS: PCP Internal Medicine; Visit Provider Internal Medicine
DX: R42 Dizziness and giddiness (principal); R73.02 Impaired glucose tolerance (oral); M54.32 Sciatica, left side; R13.10 Dysphagia, unspecified; Z13.1 Encounter for screening for diabetes mellitus
CPT/HCPCS: 83036; 99214

== ENCOUNTER 2023-04-06 08:59 | Emergency (ER) | payer OTHER, SELFPAY ==
--- NOTE | ~2023-04-06 | XR_ITS ---
EXAMINATION: XR CHEST CLINICAL INFORMATION: Right shoulder and chest pain COMPARISON: 09/14/2019 TECHNIQUE: Frontal view of the chest was obtained. FINDINGS: No significant abnormality is noted involving the heart, lungs, mediastinum, bony thorax or soft tissues. XR/XR chest 1V IMPRESSION: Unremarkable examination.
[2023-04-06 09:15] VITALS: BP 121/87; PULSE 102; RESP 20; TEMP 37.7; O2SAT 100; BMI 33.5
--- NOTE | 2023-04-06 09:22 | ECG_ITS ---
Test Reason : shoulder pain no trama Blood Pressure : / mmHG Vent. Rate : 096 BPM Atrial Rate : 096 BPM P-R Int : 142 ms QRS Dur : 080 ms QT Int : 324 ms P-R-T Axes : 031 -07 017 degrees QTc Int : 409 ms Normal sinus rhythm Normal ECG When compared with ECG of 07-NOV-2021 16:54, No significant change was found Referred By: Generic ED Physician Electronically Signed By:ALIVIA GIBBS
[2023-04-06 09:42] LABS: MANUAL DIFF FLAG NO
[2023-04-06 09:44] LABS: Basophils Percent Auto 0.5 % (0-2); Eosinophils Absolute Auto 0.1 X10*3/uL (0.0-0.4); Eosinophils Percent Auto 0.8 % (0-4); Hematocrit 41.9 % (37.0-47.0); Hemoglobin 13.5 g/dl (12.0-16.0); Imm Gran Abs Auto 0.01 X10*3/uL (0.00-0.03); Imm Gran Pct Auto 0.2 % (0.0-0.4); Lymphocytes Absolute Auto 1.1 X10*3/uL (1.2-4.9); Lymphocytes Percent Auto 17.1 % (20-40); Mean Corpuscular HGB Conc 32.2 g/dl (31.0-35.0); Mean Corpuscular Hemoglobin 25.1 pg (27.0-33.0); Mean Platelet Volume 10.9 fL (9.4-12.3); Monocytes Absolute Auto 0.7 X10*3/uL (0.1-1.2); Monocytes Percent Auto 10.4 % (2-11); Neutrophils Absolute Auto 4.4 x10*3/uL (2.0-8.3); Platelet Count 235 X10*3/uL (160-400); Red Blood Count 5.37 X10*6/uL (4.20-5.50); Red Cell Distribution Width 14.9 % (11.0-16.0); White Blood Count 6.3 X10*3/uL (4.8-10.8)
[2023-04-06 10:00] LABS: Alanine Aminotransferase 23 U/L (0-31); Alkaline Phosphatase 86 U/L (39-117); Anion Gap 10 (12-20); Aspartate Amino Transferase 17 U/L (5-31); Bilirubin Total 0.4 mg/dL (0.0-1.0); Blood Urea Nitrogen 12 mg/dL (9-16); Calcium 9.6 mg/dL (8.4-10.2); Carbon Dioxide 25 mmol/L (22-29); Chloride 107 mmol/L (96-108); Creatinine Clr Calc Pharmacy 81.4; Estimated Glomerular Filt Rate > 60; Glucose Random 108 mg/dL (60-115); Potassium 3.8 mmol/L (3.3-5.1); Sodium 138 mmol/L (135-145); Total Protein 7.4 g/dL (6.5-8.0)
--- NOTE | 2023-04-06 11:33 | ED_ITS ---
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 Patient reports that while she was cooking she suddenly felt very tired and had right sided back pain. She states that the pain in her shoulder and back worsens with movement and with palpation. Patient endorses subjective fevers last night and dry cough, states that her symptoms improved with ibuprofen. Patient denies any recent trauma, injury, heavy lifting or falls. She took Advil last night which provided her with some relief. No known sick contacts with similar symptoms. She denies sore throat, ear pain, chest pain, shortness breast, abdominal pain, nausea, vomiting or diarrhea. Denies urinary or bowel incontinence. No saddle anesthesia. No other complaints or concerns at this time. MD complaint: Right shoulder pain, fatigue, cough Onset (ago): day(s) Radiation: back Severity: moderate Quality: aching Pain Consistency: constant Relieving factors: none Exacerbating factors: none Associated symptoms: denies other symptoms Treatments prior to arrival: none Related Data Previous Rx's Medication Instructions Recorded ketotifen fumarate 0.025 % (0.035 1 drp ophthalmic (eye) Q12H 15 03/07/ %) eye drops (Allergy Eye days #5 mL (ketotifen)) tizanidine 4 mg tablet 4 mg PO BEDTIME PRN muscle 02/19/22 spasticity 30 days #30 tabs wrist splint #1 ea 06/26/22 cholecalciferol (vitamin D3) 50 50 mcg PO DAILY 90 days #90 caps 08/20/22 mcg (2,000 unit) capsule ibuprofen 600 mg tablet 600 mg PO TID PRN fever or pain 90 09/05/22 days #270 tabs hydroxyzine HCl 25 mg tablet 25 mg PO BID PRN itching 30 days 12/01/22 #60 tabs meclizine 25 mg tablet 25 mg PO TID PRN dizziness 90 days 12/05/22 #270 tabs fluticasone propionate 50 1 spray intranasal DAILY #16 grams 12/06/22 mcg/actuation nasal spray,suspension (Flonase Allergy Relief) loratadine 10 mg tablet 10 mg PO DAILY #30 tabs 12/06/22 Allergies Allergy/AdvReac Type Severity Reaction Status Date / Time Penicillins [PENICILLINS] Allergy Intermediate RASH Verified 04/06/23 09:14 seafood Allergy Intermediate Anaphylaxis Verified 04/06/23 09:14 Review of Systems Review of Systems: Yes all other systems are reviewed and are negative Constitutional: Constitutional: Reports as per [facility] Past Medical History Medical History Impaired glucose tolerance Knee pain Left knee pain Left sided sciatica Obesity (BMI 35.0-39.9 without comorbidity) Physical exam Vertigo Surgical History History of tubal ligation Skin cancer Family History Family History Father Throat cancer Mother Diabetes Hypertension Daughter In good health Sister In good health Son In good health Brother In good health Social History Social History Housing: Apartment Alcohol intake: never Patient Tobacco Use Status: Never used Tobacco Smoked in Last 30 Days: No e-Cigarette/Vaping Use: Never Used Second Hand Smoke Exposure: No Use of substances other than those prescribed or required for medical reasons: No Advance Directives: No Advance Directives Information Provided: Yes Patient : No service: No Current occupational status: employed 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 [employer] Current occupational exposures/hazards: No Cognitive needs: No Hearing needs: No Vision needs: Yes Physical Exam ED Vital Signs: Vital Signs - 24 hr 04/06/23 09:15 04/06/23 11:36 Temperature 99.8 F 98.9 F Pulse Rate 102 H 96 Respiratory Rate 20 18 Blood Pressure 121/87 116/71 Pulse Oximetry 100 99 Oxygen Delivery Method Room Air Room Air BMI result Body Mass Index 33.5 Const General: cooperative, comfortable and no acute distress Orientation/consciousness: patient oriented x3 Limitations: no limitations HENMT Head: Yes normal to inspection, Yes normocephalic and Yes atraumatic Ears: hearing grossly normal bilaterally and TM's normal bilaterally General nose exam: Normal external nose present Face and sinus: Yes normal facial exam Mouth: Normal oral and palatal mucosa present, oropharynx normal and moist mucous membranes Throat: Yes posterior oropharynx normal Eyes General: appearance normal, both eyes and all related structures Eyelids: Yes eyelids normal Conjunctivae: conjunctivae normal Sclerae: sclerae normal Pupils: Equal, round and reactive pupils present EOM: EOMs intact bilaterally Neck Neck: Yes normal visual inspection, Yes full ROM and Yes no lymphadenopathy Lymphatic: no lymphadenopathy noted Chest Chest palpation & inspection: normal inspection of the chest Resp Effort & Inspection: normal respiratory effort and able to speak in complete sentences Auscultation: clear to auscultation bilaterally, no crackles, no rales, no rhonchi and no wheezes Cardio Rate: regular rate Rhythm: regular rhythm Heart sounds: S1 normal heart sound present and S2 normal heart sound present GI Inspection: Yes normal to inspection Back/Spine/Pelvis Other: Right trapezius exquisitely tender to palpation. No overlying erythema or rashes. Pain exacerbated with movement of the shoulder. Skin General skin exam: no rashes or lesions noted Trauma: no lacerations or abrasions Wounds: no wounds Neuro General: patient oriented x3 and moves all extremities Cranial nerves: Yes Equal, round and reactive pupils present Extrem General: Yes normal to inspection Right upper extremity: normal to inspection Left upper extremity: normal to inspection Right lower extremity: normal to inspection Left lower extremity: normal to inspection Course Reevaluation(s) Reevaluation #1: Patient feeling much better after receiving Toradol injection. Patient tested negative for COVID, RSV and flu. Symptoms likely due to a muscle strain. Patient educated the importance of gentle massage, movement, heat or ice, taking Tylenol/ibuprofen as needed. Also given prescription for muscle relaxant. Advised to return with any new or worsening symptoms. Time: 13:22 Medications Administered Discontinued Medications Generic Name Dose Route Start Last Admin Trade Name Sherwin PRN Reason Stop Dose Admin Ketorolac Tromethamine 30 mg 04/06/23 11:49 04/06/23 11:57 Ketorolac Tromethamine 30 Mg/Ml Vial IM 04/06/23 11:50 30 mg ONCE ONE Administration Medical Decision Making Medical Decision Making MDM Narrative: 57-year-old female presenting to the emergency department for evaluation of right upper back pain, cough, and fatigue since yesterday. On arrival, vital signs within normal limits. Patient is nontoxic-appearing Differential Diagnosis Differential Diagnoses: The differential diagnosis associated with the presentation includes Admission/Observation Consideration of admission/observation: Escalation of care including admission/observation considered Lab Data MDM Lab Attestation statement: I reviewed the patient's lab results. 04/06/23 09:37 04/06/23 09:37 Labs: Lab Results 04/06/23 04/06/23 04/06/23 Range/Units 09:37 09:37 11:56 WBC 6.3 (4.8-10.8) X10*3/uL RBC 5.37 (4.20-5.50) X10*6/uL Hgb 13.5 (12.0-16.0) g/dl Hct 41.9 (37.0-47.0) % MCV 78.0 L (80.0-98.0) fL MCH 25.1 L (27.0-33.0) pg MCHC 32.2 (31.0-35.0) g/dl RDW 14.9 (11.0-16.0) % Plt Count 235 (160-400) X10*3/uL MPV 10.9 (9.4-12.3) fL Immature Gran % (Auto) 0.2 (0.0-0.4) % Neut % (Auto) 71.0 (45-73) % Lymph % (Auto) 17.1 L (20-40) % [place] % (Auto) 10.4 (2-11) % Eos % (Auto) 0.8 (0-4) % Baso % (Auto) 0.5 (0-2) % Lymph # (Auto) 1.1 L (1.2-4.9) X10*3/uL [place] # (Auto) 0.7 (0.1-1.2) X10*3/uL Eos # (Auto) 0.1 (0.0-0.4) X10*3/uL Baso # (Auto) 0.0 (0.0-0.2) X10*3/uL Abs Immat Gran (auto) 0.01 (0.00-0.03) X10*3/uL Absolute Neuts (auto) 4.4 (2.0-8.3) x10*3/uL Absolute Nucleated RBC 0.000 (0.0-0.012) X10*3/uL Nucleated RBC % (auto) 0.0 (0.0-0.2) /100WBC Sodium 138 (135-145) mmol/L Potassium 3.8 (3.3-5.1) mmol/L Chloride 107 (96-108) mmol/L Carbon Dioxide 25 (22-29) mmol/L Anion Gap 10 L (12-20) BUN 12 (9-16) mg/dL Creatinine 0.87 (0.5-1.4) mg/dL Estim Creat Clear Calc 81.4 Estimated GFR > 60 Random Glucose 108 (60-115) mg/dL Calcium 9.6 (8.4-10.2) mg/dL Total Bilirubin 0.4 (0.0-1.0) mg/dL AST 17 (5-31) U/L ALT 23 (0-31) U/L Alkaline Phosphatase 86 (39-117) U/L Total Protein 7.4 (6.5-8.0) g/dL Albumin 4.0 (3.5-5.0) g/dL Influenza Type A (PCR) NEGATIVE (Negative) Influenza Type B (PCR) NEGATIVE (Negative) RSV RNA Qual (PCR) NEGATIVE (Negative) SARS-CoV-2 RNA (RT-PCR) NEGATIVE (Negative) Radiology Impression Discussion of test interpretation with radiology: I have reviewed the radiologist's reading. External Record Review External record reviewed: Inpatient record, Office record, Outpatient record, Prior outpatient labs, Prior outpatient radiology, Primary care record and Outside ED record Discharge Plan Discharge Clinical Impression: Strain of right trapezius muscle Patient Disposition: Home, Self-Care Instructions: Muscle Strain (ED) Additional Instructions: Your chest x-ray was normal today. Your labs were reassuring. You tested negative for COVID, flu, and RSV today. Your symptoms are likely due to a muscle spasm. Please take ibuprofen and/or Tylenol as needed for pain. I am also giving you a prescription for muscle relaxant. Please take as prescribed, please be aware that this medication can cause drowsiness, do not drink alcohol or drive while taking this medication. If any new or worsening symptoms occur including but not limited to chest pain, shortness for breath, nausea, vomiting or diarrhea, please return for re- evaluation. Prescriptions: No Action ketotifen fumarate [Allergy Eye (ketotifen)] 0.025 % (0.035 %) drops 1 drp ophthalmic (eye) Q12H 15 Days Qty: 5 1RF cholecalciferol (vitamin D3) 50 mcg (2,000 unit) capsule 50 mcg PO DAILY 90 Days Qty: 90 3RF ibuprofen 600 mg tablet 600 mg PO TID PRN (Reason: fever or pain) 90 Days Qty: 270 1RF hydroxyzine HCl 25 mg tablet 25 mg PO BID PRN (Reason: itching) 30 Days Qty: 60 0RF meclizine 25 mg tablet 25 mg PO TID PRN (Reason: dizziness) 90 Days Qty: 270 3RF loratadine 10 mg tablet 10 mg PO DAILY Qty: 30 2RF fluticasone propionate [Flonase Allergy Relief] 50 mcg/actuation spray,suspension 1 spray intranasal DAILY Qty: 16 0RF Rx Instructions: administer into each nostril tizanidine 4 mg tablet 4 mg PO BEDTIME PRN (Reason: muscle spasticity) 30 Days Qty: 30 0RF (DME) wrist splint See Rx Instructions .Route .MEDSUPPLY Qty: 1 0RF Rx Instructions: wear it as much as possible throughout the day
[2023-04-06 11:36] VITALS: BP 116/71; PULSE 96; RESP 18; TEMP 37.2; O2SAT 99
[2023-04-06] MEDS: Ketorolac Tromethamine 30 MG/ML VIAL IM (11:57)
[2023-04-06 12:43] LABS: Influenza A PCR NEGATIVE (Negative); Influenza B PCR NEGATIVE (Negative); Resp Syncy Virus RNA Qual PCR NEGATIVE (Negative); SARS COV2 PCR INHOUSE NEGATIVE (Negative)
== END 2023-04-06 13:49 | disposition home or self-care (01) ==
PROVIDERS: Physician Assistant Medical; Emergency Provider Emergency Medicine; PCP Internal Medicine
DX: M54.50 Low back pain, unspecified (principal); M54.2 Cervicalgia; R07.89 Other chest pain; M25.511 Pain in right shoulder; Z20.822 Contact with and (suspected) exposure to COVID-19; Z20.828 Contact with and (suspected) exposure to other viral communicable diseases; Z79.899 Other long term (current) drug therapy
CPT/HCPCS: 0241U; 36415; 71045; 80053; 85025; 93005; 96372; 99284; J1885

== ENCOUNTER 2023-05-21 14:14 | Outpatient (REF) | payer OTHER, SELFPAY ==
[2023-05-22 05:14] LABS: CT PCR NOT DETECTED (Not Detect.); NG PCR NOT DETECTED (Not Detect.)
[2023-05-26 11:34] LABS: HPV mRNA E6/E7 rflx Not Detected (Not Detected)
== END 2023-05-21 14:15 | disposition home or self-care (01) ==
LOC: HO.LNP 14:14
PROVIDERS: Visit Provider Advanced Practice Midwife
DX: Z01.419 Encounter for gynecological examination (general) (routine) without abnormal findings (principal); R10.2 Pelvic and perineal pain; Z11.51 Encounter for screening for human papillomavirus (HPV)
CPT/HCPCS: 0353U; 87624; 88142; 99386

== ENCOUNTER 2023-05-21 14:14 | Outpatient (AMB) | payer OTHER, SELFPAY ==
--- NOTE | 2023-05-21 14:21 | MHC.OFFVIS ---
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 Scribed for ROXANA Larkin by Chacha Bhatt medical records supervisor, on 05/21/2023 at 2:45 pm, EST. Glass Block Installer Required: Yes Glass Block Installer Language: Film Touch Up Inspector Name: Criselda Information Interpreted: non-clinical & clinical Supervising Producer: Supervising Producer Present (Criselda) Allergies Penicillins [PENICILLINS] Allergy (Intermediate, Verified 05/21/23 14:25) RASH seafood Allergy (Intermediate, Verified 05/21/23 14:25) Anaphylaxis Post menopausal: Yes HPI HPI Comments History of Present Illness Details She is a postmenopausal woman presenting for annual exam as a new patient. Doing well with no bindery machine setter concerns. Tries to eat healthy. She states she goes back and forth between work and home which keeps her from exercising. Currently sexually active, with her partner. Denies vaginal itching and irritation. STD screening offered; she accepts. Denies family history of breast, colon and ovarian cancer. Last pap smear 2017, which was normal. UTD on colonoscopy. She states she went to the bathroom for a bowel movement and felt like she immediately needed to return to the bathroom. This caused her to have a burning sensation. She denies constipation. [facility] Medical History Physical exam Obesity (BMI 35.0-39.9 without comorbidity) Left sided sciatica Impaired glucose tolerance Vertigo Left knee pain Knee pain Surgical History Skin cancer History of tubal ligation Family History Father Throat cancer Mother Diabetes Hypertension Daughter In good health Sister In good health Son In good health Brother In good health Social History Household Members: Spouse Housing: Apartment Alcohol intake: never Patient Tobacco Use Status: Never used Tobacco e-Cigarette/Vaping Use: Never Used Second Hand Smoke Exposure: No service: No Current occupational status: employed 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[employer] Current occupational exposures/hazards: No Cognitive needs: No Hearing needs: No Vision needs: Yes Female Reproductive History Menstrual Total pregnancies: 3 Full term: 3 Number of Living Children: 3 Review of Systems Const All systems reviewed & are unremarkable except as noted in HPI and below Physical Exam Vital Signs: Last Vital Signs BP 114/76 05/21/23 14:23 BMI result Body Mass Index 33.4 Const General: cooperative, healthy appearing, no acute distress, well developed and alert Orientation/consciousness: patient oriented x3 HEENT Head: Yes normal to inspection Eyes General: appearance normal, both eyes and all related structures Neck Neck: Yes normal visual inspection Thyroid: Thyroid normal Chest Chest palpation & inspection: normal inspection of the chest Breast/axilla inspection: normal inspection of the breasts (no puckering, dimpling, peau de orange, retraction, discharge, masses) Breast/axilla palpation: normal palpation of the breasts Resp Effort & Inspection: normal respiratory effort GI Inspection: Yes normal to inspection Palpation (GI): Soft to palpation Rectal Exam - Female: deferred Other: Tenderness to palpation on the right side. General: Yes bladder normal to inspection and Yes bladder normal to palpation External Female Exam: normal external appearance and normal appearance of the urethra Speculum Exam - Vagina: normal palpation and vagina atrophic Speculum Exam - Cervix: normal palpation and Other cervical findings present (Bled slightly with pap smear) Bimanual exam- vagina & uterus: normal bimanual exam, normal palpation, uterine size normal, bladder normal to palpation and normal palpation Bimanual Exam- Adnexa, other: normal adnexae and no masses Skin General skin exam: no rashes or lesions noted Neuro General: patient oriented x3 Cognition (Neuro): normal cognition Extrem General: Yes normal to inspection Psych Attitude: cooperative Thought process: Normal thought process present Assessment & Plan Assessment & Plan (1) Encounter for annual routine gynecological examination: Code(s): Z01.419 - Encounter for gynecological examination (general) (routine) without abnormal findings Plan: Discussed: Current recommendations for pap smears per ASCCP guidelines. Breast awareness and periodic self breast exams. Encouraged yearly mammograms. Maintaining a healthy lifestyle including a well balanced diet including Calcium and Vitamin D and routine exercise. STD screening offered; she accepts. Encouraged to use condoms for STD prevention. Encouraged patient to sign up for patient portal. Contact office with any PMB. All of her questions and concerns were addressed to the best of my ability. (2) Pelvic pain: Code(s): R10.2 - Pelvic and perineal pain Plan: Order placed for ultrasound of right ovary. Follow up in 2 weeks with results. Orders: Orders US pelvic and transvaginal Today R10.2 - Pelvic and perineal pain Pap Smear Today Z01.419 - Encounter for gynecological examination (general) (routine) without abnormal findings CT NG by PCR Today R10.2 - Pelvic and perineal pain Coding Level of Care Code New Pt Prev Care 40-64y(84679) Diagnoses Encounter for annual routine gynecological examination Z01.419 Pelvic pain R10.2
[2023-05-21 14:23] VITALS: BP 114/76; BMI 33.4
== END 2023-05-21 15:00 | disposition home or self-care (01) ==
PROVIDERS: Visit Provider Advanced Practice Midwife
DX: Z01.419 Encounter for gynecological examination (general) (routine) without abnormal findings (principal); R10.2 Pelvic and perineal pain
CPT/HCPCS: 99386

== ENCOUNTER 2023-06-08 15:29 | Outpatient (REF) | payer OTHER, SELFPAY ==
--- NOTE | ~2023-06-08 | US_ITS ---
EXAMINATION: US PELVIS CLINICAL INFORMATION: Pelvic pain. Postmenopausal. COMPARISON: Pelvic ultrasound 05/27/2017. TECHNIQUE: Ultrasound of the pelvis is performed using both transabdominal and transvaginal transducers along with Doppler. Transvaginal imaging is performed due to inadequate visualization transabdominally. FINDINGS: The uterus is anteverted, heterogeneous and measures 5.2 x 3.4 x 3.9 cm. Uterine volume 43.24 mL. Previously identified uterine fibroids are not clearly identified, although visualization limited due to small size of uterus, uterine heterogeneity and bowel gas. Limited visualization of the endometrium. Double wall thickness of imaged segment of endometrium is 0.5 cm. Bilateral ovaries were not visualized. No significant free fluid. US/US pelvic and transvaginal IMPRESSION: 1. Previously identified fibroids were not clearly identified, although visualization limited due to uterine heterogeneity, small size of bowel gas. 2. Endometrium poorly visualized. Accuracy of the measured double wall thickness of imaged segment of endometrium of 0.5 cm is difficult to confirm due to poor visualization. 3. Bilateral ovaries not visualized. 4. MRI of the pelvis could be considered for better visualization if clinically indicated.
== END 2023-06-08 15:30 | disposition home or self-care (01) ==
LOC: HO.US 15:29
PROVIDERS: PCP Internal Medicine; Visit Provider Advanced Practice Midwife
DX: R10.2 Pelvic and perineal pain (principal)
CPT/HCPCS: 76830; 76856

== ENCOUNTER 2023-07-28 15:36 | Outpatient (AMB) | payer OTHER, SELFPAY ==
--- NOTE | 2023-07-28 15:51 | MHC.OFFVIS ---
Intake Vital Signs 07/28/23 16:05 Height 5 ft 6 in Weight 209 lb 3.499 oz BMI 33.8 BP 124/82 Blood Pressure Location Rt brachial Position Sitting Pulse 90 Pulse Source Pulse Oximeter Temp 97.7 F Temp Source Skin Pulse Oximetry (%) 97 Oxygen Delivery Method Room Air Intake Visit Reasons: OA Carpal Tunnel Intake Note: Pt last seen 06/26/22 presents today for follow up. Precast Concrete Products Installer Required: Yes Precast Concrete Products Installer Language: Gang Drill Operator Name: [id number] Information Interpreted: clinical only Accompanied by: Self / Same As Patient Allergies Penicillins [PENICILLINS] Allergy (Intermediate, Verified 07/28/23 16:06) RASH seafood Allergy (Intermediate, Verified 07/28/23 16:06) Anaphylaxis Medication List - Last Reconciled 07/28/23 by Kaylyn Ewing MD acetaminophen (Tylenol) 650 mg (2 x 325 mg) PO Q6H PRN cholecalciferol (vitamin D3) 50 mcg PO DAILY 90 days fluticasone propionate 50 mcg/actuation (Flonase Allergy Relief) 1 spray intranasal DAILY hydroxyzine HCl 25 mg PO BID PRN 30 days ibuprofen 600 mg PO Q6H PRN ketotifen fumarate 0.025%(0.035%) (Allergy Eye (ketotifen)) 1 drp ophthalmic (eye) Q12H 15 days loratadine 10 mg PO DAILY meclizine 25 mg PO TID PRN 90 days tizanidine 4 mg PO BEDTIME PRN 30 days [wrist splint wear it as much as possible throughout the day] HPI HPI Comments History of Present Illness Details Patient returns for follow-up. She states that she continues to have pain in her neck going down her right shoulder, right elbow and right hand. She states that her right 3rd and 4th fingers are numb all the time. She was evaluated by Pain Management last year and physical therapy was suggested. Patient stated that she was referred to pain management by her PCP Dr. Schaefer. She does not think that PT was helpful [facility] Medical History Physical exam Obesity (BMI 35.0-39.9 without comorbidity) Left sided sciatica Impaired glucose tolerance Vertigo Left knee pain Knee pain Surgical History Skin cancer History of tubal ligation Family History Father Throat cancer Mother Diabetes Hypertension Daughter In good health Sister In good health Son In good health Brother In good health Social History Household Members: Spouse Housing: Apartment Alcohol intake: never Patient Tobacco Use Status: Never used Tobacco e-Cigarette/Vaping Use: Never Used Second Hand Smoke Exposure: No service: No Current occupational status: employed 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 [employer] Current occupational exposures/hazards: No Cognitive needs: No Hearing needs: No Vision needs: Yes Review of Systems ENT Reports neck pain GI Reports no additional complaints Musc Reports arthralgias, Reports neck pain, Reports numbness and Reports tingling Neuro Reports numbness and Reports tingling Physical Exam Vital Signs: Last Vital Signs Temp 97.7 F 07/28/23 16:05 Pulse 90 07/28/23 16:05 BP 124/82 07/28/23 16:05 Pulse Ox 97 07/28/23 16:05 Oxygen Delivery Method Room Air 07/28/23 16:05 BMI result Body Mass Index 33.8 Const General: cooperative, healthy appearing, comfortable, no acute distress and well developed Nutritional Appearance: obese Orientation/consciousness: patient oriented x3 Limitations: no limitations HEENT Head: Yes normocephalic and Yes atraumatic Resp Effort & Inspection: normal respiratory effort and able to speak in complete sentences Auscultation: clear to auscultation bilaterally Cardio Rate: regular rate Rhythm: regular rhythm Neuro General: patient oriented x3 Extrem Other: Mild osteoarthritic changes of her hands with some dry skin No obvious joint swelling? Negative Spurling's test bilateral Normal nailfold capillaroscopy Results Reviewed Results Reviewed: FINDINGS: Cervical alignment is maintained. The vertebral body heights are preserved. There is moderate to severe disc volume loss at C5-C6 which is unchanged. Moderate disc volume loss at C3-C4 is stable. There is new significant bone marrow edema within the left C2 and C3 facets that is most likely degenerative/inflammatory. There is also a left C2-C3 facet joint effusion. No additional bone marrow edema within the cervical spine. No acute fractures. Craniocervical junction is unremarkable. Cervical arterial flow voids are maintained. There are no significant extraspinal soft tissue findings. There are no cord signal changes. C2-C3: Uncovertebral joint spurring and facet arthropathy result in worsening mild to moderate left-sided foraminal stenosis. C3-C4: Disc osteophyte flattens the ventral cord, resulting in mild central canal stenosis. Uncovertebral joint spurring and facet arthropathy result in similar mild to moderate bilateral foraminal stenosis. C4-C5: Disc osteophyte mildly narrows the central canal. No significant foraminal stenosis. C5-C6: Slight annular disc bulges in part disc osteophyte mildly narrows the central canal. Uncovertebral joint hypertrophy and hypertrophic facet arthropathy result in progressive moderate left-sided foraminal stenosis. C6-C7: Disc osteophyte mildly narrows the central canal. No foraminal stenosis. C7-T1: Slight annular disc bulge. No central canal stenosis and no foraminal stenosis. MR/MR cervical spine wo con IMPRESSION: - At C2-C3, progressive multifactorial degenerative changes result in worsening mild to moderate left-sided foraminal stenosis. There is new significant bone marrow edema within the left C2 and C3 facets that is most likely degenerative/inflammatory. There is also a left C2-C3 facet joint effusion. ? - At C5-C6, progressive spondylitic changes result in worsening moderate left-sided foraminal stenosis. ? - Additional stable mild to moderate spondylitic changes throughout the cervical spine as described. There is no severe central canal stenosis within the cervical spine. Assessment & Plan Assessment & Plan (1) Facet arthritis of cervical region: Code(s): M47.812 - Spondylosis without myelopathy or radiculopathy, cervical region (2) Cervical radiculitis: Code(s): M54.12 - Radiculopathy, cervical region Plan: Patient was evaluated last year by Pain Management. Physical therapy was recommended. According to patient. It was not helpful. Advised patient to follow-up with pain management Plan I spent 15 minutes reviewing patient's chart, evaluating patient, counseling patient and documenting in the chart Coding Level of Care Code Est Pt Level 3 (92999) Diagnoses Facet arthritis of cervical region M47.812 Cervical radiculitis M54.12
[2023-07-28 16:05] VITALS: BP 124/82; PULSE 90; TEMP 36.5; O2SAT 97; BMI 33.8
== END 2023-07-28 16:24 | disposition home or self-care (01) ==
PROVIDERS: PCP Internal Medicine; Visit Provider Student in an Organized Health Care Education/Training Program
DX: M47.812 Spondylosis without myelopathy or radiculopathy, cervical region (principal); M54.12 Radiculopathy, cervical region
CPT/HCPCS: 99213

== ENCOUNTER → 2023-07-28 15:36 | Outpatient (BNVA) | payer OTHER, SELFPAY | PROVIDERS: PCP Internal Medicine; Visit Provider Student in an Organized Health Care Education/Training Program | DX: M47.812 Spondylosis without myelopathy or radiculopathy, cervical region (principal); M54.12 Radiculopathy, cervical region | CPT/HCPCS: 99212 ==

== ENCOUNTER 2023-08-20 08:14 | Outpatient (REF) | payer OTHER, SELFPAY ==
--- NOTE | ~2023-08-20 | FL_ITS ---
EXAMINATION: XR FLUOROSCOPY UPPER GI WITH AIR CLINICAL INFORMATION: Dysphagia. Reflux. COMPARISON: None TECHNIQUE: Fluoroscopic air contrast upper GI examination was performed utilizing standard techniques with thin and thick barium and effervescent granules. Numerous spot images were obtained. FINDINGS: Lateral cine images of the oropharynx and hypopharynx demonstrate normal swallow mechanism with normal epiglottic inversion and soft palate elevation. There is trace laryngeal penetration with the thick barium. No tracheal penetration, glottic or subglottic aspiration identified. No nasopharyngeal reflux present. Hypopharyngeal structures appear normal without evidence of mass or diverticulum. Mild cricopharyngeal achalasia is present. Dual and single contrast images of the esophagus demonstrate normal caliber, contour, and mucosal pattern. No evidence of stricture, mass, or ulcerations identified. Esophageal peristalsis was normal. A small type I hiatal hernia is present. Gastroesophageal reflux is seen up to the thoracic inlet. Dual contrast and single contrast images of the stomach demonstrated normal contour and mucosal pattern without evidence of mass, ulceration, or other abnormality. Contrast freely passed into the gastric antrum and duodenal bulb without delay. Single and air-contrast images of the duodenal bulb demonstrate no abnormality. The duodenal sweep has a normal appearance, course, and mucosal fold appearance. The imaged proximal jejunum has a normal fold pattern and caliber. FLUOROSCOPY TIME: 3 minutes 23 seconds Number of Spot Images: 10 Number of Cine: 11 DOSE AREA PRODUCT: 2436 uGy-m2 (microgray-meter squared) FL/FL barium swallow with air IMPRESSION: 1. Trace laryngeal penetration with thick barium 2. Mild cricopharyngeal achalasia 3. Small type I hiatal hernia 4. Severe gastroesophageal reflux This procedure was performed by Arsen Talavera PA-C, and supervised by Dr. Darnell
== END 2023-08-20 08:15 | disposition home or self-care (01) ==
LOC: HO.XRAY 08:14
PROVIDERS: PCP Internal Medicine; Visit Provider Internal Medicine
DX: R13.10 Dysphagia, unspecified (principal)
CPT/HCPCS: 74221

== ENCOUNTER → 2023-08-20 08:16 | Outpatient (BNV) | payer OTHER, SELFPAY | PROVIDERS: PCP Internal Medicine; Visit Provider Radiology Diagnostic Radiology | DX: R13.10 Dysphagia, unspecified (principal) | CPT/HCPCS: 74246 ==

== ENCOUNTER 2023-08-28 14:57 | Outpatient (AMB) | payer OTHER, SELFPAY ==
--- NOTE | 2023-08-28 15:03 | MHC.OFFVIS ---
Intake Vital Signs 08/28/23 15:07 Height 5 ft 6 in Weight 207 lb 3.752 oz BMI 33.4 BP 122/74 Intake Visit Reasons: Ultrasound follow up Biochemical Engineer Required: Yes Biochemical Engineer Language: Wax Pattern Coater Name: Criselda MILLER Information Interpreted: non-clinical & clinical Assembly Line Supervisor: Assembly Line Supervisor Present Allergies Penicillins [PENICILLINS] Allergy (Intermediate, Verified 07/28/23 16:06) RASH seafood Allergy (Intermediate, Verified 07/28/23 16:06) Anaphylaxis Is last menstrual period known: Yes HPI HPI Comments History of Present Illness Details Patient is here today for a follow-up ultrasound results previous appointment she reported some discomfort and related to feeling some pressure and can sense of having to use the bathroom. She denies any pain or pressure all her symptoms have resolved. She does not have any postmenopausal bleeding. [facility] Medical History Fibroid Physical exam Obesity (BMI 35.0-39.9 without comorbidity) Left sided sciatica Impaired glucose tolerance Vertigo Left knee pain Knee pain Surgical History Skin cancer History of tubal ligation Family History Father Throat cancer Mother Diabetes Hypertension Daughter In good health Sister In good health Son In good health Brother In good health Social History Household Members: Spouse Housing: Apartment Alcohol intake: never Patient Tobacco Use Status: Never used Tobacco e-Cigarette/Vaping Use: Never Used Second Hand Smoke Exposure: No service: No Current occupational status: employed 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 [id number] Current occupational exposures/hazards: No Cognitive needs: No Hearing needs: No Vision needs: Yes Review of Systems Const All systems reviewed & are unremarkable except as noted in HPI and below Endo Reports no additional complaints Physical Exam Vital Signs: Last Vital Signs BP 122/74 08/28/23 15:07 BMI result Body Mass Index 33.4 Const General: cooperative, healthy appearing and no acute distress Psych Appearance: well kempt Attitude: cooperative Thought process: Normal thought process present Results Reviewed Results Reviewed: [address] [address] Ultrasound Report Signed Patient: Amy Girard MR#: [id number] : 1965 Acct:[id number] Age/Sex: 57 / F ADM Date: 06/08/23 Loc: HO.US Attending Dr: Faiza Beltran CNM Ordering Physician: Faiza Beltran CNM Date of Service: 06/08/23 Procedure(s): US pelvic and transvaginal Accession Number(s): [id number] cc: Faiza Beltran CNM; Luanne Storey MD~ EXAMINATION: US PELVIS CLINICAL INFORMATION: Pelvic pain. Postmenopausal. COMPARISON: Pelvic ultrasound 05/27/2017. TECHNIQUE: Ultrasound of the pelvis is performed using both transabdominal and transvaginal transducers along with Doppler. Transvaginal imaging is performed due to inadequate visualization transabdominally. FINDINGS: The uterus is anteverted, heterogeneous and measures 5.2 x 3.4 x 3.9 cm. Uterine volume 43.24 mL. Previously identified uterine fibroids are not clearly identified, although visualization limited due to small size of uterus, uterine heterogeneity and bowel gas. Limited visualization of the endometrium. Double wall thickness of imaged segment of endometrium is 0.5 cm. Bilateral ovaries were not visualized. No significant free fluid. US/US pelvic and transvaginal IMPRESSION: 1. Previously identified fibroids were not clearly identified, although visualization limited due to uterine heterogeneity, small size of bowel gas. 2. Endometrium poorly visualized. Accuracy of the measured double wall thickness of imaged segment of endometrium of 0.5 cm is difficult to confirm due to poor visualization. 3. Bilateral ovaries not visualized. 4. MRI of the pelvis could be considered for better visualization if clinically indicated. Dictated By: Alma Clark MD Signed By: <Electronically signed by Alma Clark MD in OV> 06/10/23 0515 DD/ 1600 TD/TT: Claim Benefit Specialist: Assessment & Plan Assessment & Plan (1) Encounter to discuss test results: Code(s): Z71.2 - Person consulting for explanation of examination or test findings (2) Abnormal finding present on diagnostic imaging of uterus: Code(s): R93.89 - Abnormal findings on diagnostic imaging of other specified body structures Plan Discussed: Ultrasound findings were limited the endometrial lining was measured at 0.5 cm which is above the normal for a postmenopausal woman. It is recommended that she have an endometrial biopsy sampling. Preprocedure anticipatory guidance recommended to eat, have something to drink, it may take an hyaf-vhc-[id number] medication 1 hour before the procedure to help with uterine cramping. The patient is booked for this procedure next week. All of her questions and concerns were addressed to the best of my ability and shared decision making. She is agreeable to the plan of care. Coding Level of Care Code Est Pt Level 3 (95113) Diagnoses Encounter to discuss test results Z71.2 Abnormal finding present on diagnostic imaging of uterus R93.89
[2023-08-28 15:07] VITALS: BP 122/74; BMI 33.4
== END 2023-08-28 16:07 | disposition home or self-care (01) ==
PROVIDERS: PCP Internal Medicine; Visit Provider Advanced Practice Midwife
DX: Z71.2 Person consulting for explanation of examination or test findings (principal); R93.89 Abnormal findings on diagnostic imaging of other specified body structures
CPT/HCPCS: 99213

== ENCOUNTER → 2023-08-28 14:57 | Outpatient (BNVA) | payer SELFPAY | PROVIDERS: PCP Internal Medicine; Visit Provider Advanced Practice Midwife | DX: Z71.2 Person consulting for explanation of examination or test findings (principal); R93.89 Abnormal findings on diagnostic imaging of other specified body structures | CPT/HCPCS: 99212 ==

== ENCOUNTER 2023-09-03 09:41 | Outpatient (AMB) | payer OTHER, SELFPAY ==
[2023-09-03 09:49] VITALS: BP 116/70; BMI 33.4
--- NOTE | 2023-09-03 09:49 | MHC.OFFVIS ---
Intake Vital Signs 09/03/23 09:49 Height 5 ft 6 in Weight 207 lb BMI 33.4 BP 116/70 Intake Visit Reasons: EMB per Faiza Alegre Community Mental Health Worker Required: Yes Community Mental Health Worker Language: Technology Coordinator Name: Criselda Information Interpreted: non-clinical & clinical Quiller Runner: Quiller Runner Present (Criselda) Allergies Penicillins [PENICILLINS] Allergy (Intermediate, Verified 09/03/23 09:53) RASH seafood Allergy (Intermediate, Verified 09/03/23 09:53) Anaphylaxis HPI HPI Comments History of Present Illness Details Patient is here today for an endometrial biopsy due to increased endometrial thickness on ultrasound findings. She does not report any postmenopausal bleeding. [facility] Medical History Fibroid Physical exam Obesity (BMI 35.0-39.9 without comorbidity) Left sided sciatica Impaired glucose tolerance Vertigo Left knee pain Knee pain Surgical History Skin cancer History of tubal ligation Family History Father Throat cancer Mother Diabetes Hypertension Daughter In good health Sister In good health Son In good health Brother In good health Social History Household Members: Spouse Housing: Apartment Alcohol intake: never Patient Tobacco Use Status: Never used Tobacco e-Cigarette/Vaping Use: Never Used Second Hand Smoke Exposure: No service: No Current occupational status: employed 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 [employer] Current occupational exposures/hazards: No Cognitive needs: No Hearing needs: No Vision needs: Yes Review of Systems Const All systems reviewed & are unremarkable except as noted in HPI and below Physical Exam Vital Signs: Last Vital Signs BP 116/70 09/03/23 09:49 BMI result Body Mass Index 33.4 Const General: cooperative, healthy appearing and no acute distress Orientation/consciousness: patient oriented x3 GI Inspection: Yes normal to inspection Palpation (GI): Soft to palpation and Other GI palpation findings present (Nontender) Rectal Exam - Female: visual inspection normal General: Yes bladder normal to palpation External Female Exam: normal appearance of the urethra Speculum Exam - Vagina: normal appearance of the vagina, normal palpation, normal vaginal discharge and vagina atrophic Speculum Exam - Cervix: normal appearance of the cervix and normal palpation Bimanual exam- vagina & uterus: normal bimanual exam, normal palpation, uterine size normal, bladder normal to palpation, normal palpation, uterine shape normal and non-tender Bimanual Exam- Adnexa, other: normal adnexae Neuro General: patient oriented x3 Office Procedures Endometrial Biopsy Details: The patient is here today for an endometrial biopsy due to AUB to rule out any pathology including atypical, hyperplasia or cancer cells of the uterus. She was counseled regarding anticipatory guidance for the procedure including the risks for pain, infection, bleeding, perforation, potential injury to the tissues may include the cervix, uterus, tubes, bladder and bowels. These injuries may include further treatment and evaluation including surgery, blood transfusions, antibiotics, hospitalizations and anesthesia. Permanent injury and scarring can occur. She was consented for the procedure, and the consent forms were signed. She is agreeable to have the procedure today. All questions were answered. Endometrial Biopsy Procedure: The patient was placed in the dorsal lithotomy position and a sterile speculum inserted. Using aseptic technique for the procedure. The cervix was cleansed with Betadine x 3 swabs. A single toothed tenaculum was placed on the cervix for stabilization and the uterus was sounded to 7 cm with a 4mm pipelle for multiple passes. Minimal bleeding was observed. The tissue sample was placed in formalin in a patient labeled container by staff assisting and sent to the pathology department for processing and interpretation. The patient tolerate the procedure well and was in good condition when leaving the department. Endometrial Biopsy Post Procedure Care: Nothing in the vagina including: tampons, douching or intimacy until all the bleeding has subsided. There may be some post procedure bleeding for several days, this bleeding is usually light and may turn to a light brown or pink color. Mild cramps may occurs. Nothing in the vaginal including: tampons, douching, or intimacy until all the bleeding has subsided. You may take an over the counter mild analgesic such as Tylenol or Advil (if no allergies) per the manufactures recommendation on dosing, frequency, and follow the directions completely. Call the office if any: fever (over 100.4), flu like symptoms, abdominal pain (worse than cramping), foul smelling, infected appearing vaginal discharge, or heavy bleeding. Return to the office in 2 weeks for results and plan of care. This note is constructed using voice recognition software. While every effort has been made to ensure accuracy, creasing machine operator errors may have been included. 27114-[id number] Biopsy Assessment & Plan Assessment & Plan (1) Increased endometrial stripe thickness: Code(s): R93.89 - Abnormal findings on diagnostic imaging of other specified body structures Plan See procedure notes for today. Return to the office for test results in 2 weeks. Orders: Orders Surgical Today R93.89 - Abnormal findings on diagnostic imaging of other specified body structures Coding Level of Care Code Procedure Only Diagnoses Increased endometrial stripe thickness R93.89 CPT Codes Endometrial Biopsy - CPT: 69043-Foqgygluans Biopsy ([id number])
== END 2023-09-03 10:44 | disposition home or self-care (01) ==
LOC: HO.HWS 09:41
PROVIDERS: PCP Internal Medicine; Visit Provider Advanced Practice Midwife
DX: R93.89 Abnormal findings on diagnostic imaging of other specified body structures (principal)
CPT/HCPCS: 58100

== ENCOUNTER 2023-09-03 09:41 | Outpatient (REF) | payer OTHER, SELFPAY | END 2023-09-03 09:42 | disposition home or self-care (01) | LOC: HO.LNP 09:41 | PROVIDERS: PCP Internal Medicine; Visit Provider Advanced Practice Midwife | DX: R93.89 Abnormal findings on diagnostic imaging of other specified body structures (principal) | CPT/HCPCS: 58100; 88305 ==

== ENCOUNTER 2023-09-14 11:27 | Outpatient (AMB) | payer OTHER, SELFPAY ==
[2023-09-14 11:30] VITALS: BP 117/76; PULSE 85; BMI 33.2
--- NOTE | 2023-09-14 11:30 | A.OFFVIS_ITS ---
Intake Vital Signs 09/14/23 11:30 Height 5 ft 6 in Weight 205 lb 7.533 oz BMI 33.2 BP 117/76 Blood Pressure Location Rt brachial Position Sitting Pulse 85 Intake Visit Reasons: Achalasia of cardia Intake Note: Patient presents to in office visit today as a new patient for achalasia of cardia. CC: Patient underwent a Barium swallow test on 08/20/23 that showed achalasia of cardia. She reports occasional heartburn when she eats meat stew and occasional chocking if she eats dry foods like pork skin. Denies other GI symptoms today. Quiller Tender Required: Yes Accompanied by: Self / Same As Patient Allergies Penicillins [PENICILLINS] Allergy (Intermediate, Verified 09/14/23 11:37) RASH seafood Allergy (Intermediate, Verified 09/14/23 11:37) Anaphylaxis HPI HPI Comments History of Present Illness Details This is a 49-year-old female who has been referred to our office for complaints of difficulty swallowing. Patient was seen with a site interpreter. She states that almost 6 months ago, she experienced foreign body sensation, with difficulty swallowing along with the subjective sensation of swelling on her right side of the neck. However, this has since resolved. Now, she only has slight trouble with pills that are too large or food that is very dry. Often has to meena it with something liquid. Other than this, no choking episodes. Does not report any unintentional weight loss. No nausea, vomiting, change in appetite. She underwent a barium swallow last month that showed mild cricopharyngeal dilation as well as reflux. Last colonoscopy was in 2017-10 year interval. [facility] Medical History Fibroid Physical exam Obesity (BMI 35.0-39.9 without comorbidity) Left sided sciatica Impaired glucose tolerance Vertigo Left knee pain Knee pain Surgical History H/O colonoscopy Skin cancer History of tubal ligation Family History Father Throat cancer Mother Diabetes Hypertension Daughter In good health Sister In good health Son In good health Brother In good health Social History (Reviewed 09/14/23 @ 11:39 by LISBETH Callaway Household Members: Spouse Housing: Apartment Alcohol intake: never Patient Tobacco Use Status: Never used Tobacco e-Cigarette/Vaping Use: Never Used Second Hand Smoke Exposure: No service: No Current occupational status: employed 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 [employer] Current occupational exposures/hazards: No Cognitive needs: No Hearing needs: No Vision needs: Yes Review of Systems Const All systems reviewed & are unremarkable except as noted in HPI and below Physical Exam Vital Signs: Last Vital Signs Pulse 85 09/14/23 11:30 BP 117/76 09/14/23 11:30 BMI result Body Mass Index 33.2 Gen appear: NAD, well nourished HEENT: no icterus, no cervical lymphadenopathy Chest: clear to auscultation CVS: Regular S1/S2 Abd: soft, nontender, nondistended Ext: no peripheral edema Neuro: A/Ox3, noted to move all extremities spontaneously Results Reviewed Results Reviewed: Barium swallow 08/20/23 1. Trace laryngeal penetration with thick barium 2. Mild cricopharyngeal achalasia 3. Small type I hiatal hernia 4. Severe gastroesophageal reflux Assessment & Plan Assessment & Plan (1) Dysphagia: Code(s): R13.10 - Dysphagia, unspecified (2) GERD (gastroesophageal reflux disease): Code(s): K21.9 - Gastro-esophageal reflux disease without esophagitis Plan Has mild intermittent dysphagia without any red flags. Likely due to tight cricopharyngeal muscle leading to mild dilation upstream as noted on the barium swallow. Also noted to have reflux, however patient does not report any symptoms. We will set her up for elective upper endoscopy with dilation. In the meantime, she is to take omeprazole 20 mg once daily. Follow-up after endoscopy as needed. Medications: New omeprazole 20 mg PO DAILY 90 caps 0RF K21.9 - Gastro-esophageal reflux disease without esophagitis Coding Level of Care Code New Pt Level 4 (28637) Diagnoses Dysphagia R13.10 GERD (gastroesophageal reflux disease) K21.9
== END 2023-09-14 13:10 | disposition home or self-care (01) ==
PROVIDERS: PCP Internal Medicine; Visit Provider Internal Medicine
DX: R13.10 Dysphagia, unspecified (principal); K21.9 Gastro-esophageal reflux disease without esophagitis
CPT/HCPCS: 99204

== ENCOUNTER → 2023-09-14 11:27 | Outpatient (BNVA) | payer OTHER, SELFPAY | PROVIDERS: PCP Internal Medicine; Visit Provider Internal Medicine | DX: R13.10 Dysphagia, unspecified (principal); K21.9 Gastro-esophageal reflux disease without esophagitis | CPT/HCPCS: 99202 ==

== ENCOUNTER 2023-09-21 08:16 | Emergency (ER) | payer OTHER, SELFPAY ==
[2023-09-21 08:22] VITALS: BP 141/84; PULSE 116; RESP 20; TEMP 38; O2SAT 95; BMI 32.0
[2023-09-21 08:42] LABS: COVID-19 Test Negative (Negative); IDNOW Serial# 152EDE1D
[2023-09-21 08:44] LABS: IDNOW Serial# 9DB6401D; Influenza A Positive (Negative); Influenza B2 Negative (Negative)
--- NOTE | 2023-09-21 09:28 | ED.URI ---
HPI - URI/Sore Throat General Chief Complaint: Upper Respiratory Symptoms Stated Complaint: cold like symptoms Time Seen by Provider: 09/21/23 09:00 Source: patient and RN notes reviewed Mode of arrival: ambulatory Limitations: no limitations History of Present Illness HPI Narrative: This is a 57-year-old female, with a history of BPPV, GERD, who presents to the emergency department with complaints of body aches, subjective fevers and chills, and productive cough since last night. She states that this morning she was gargling with water and ultimately vomited. She denies any headaches, dizziness, chest pain, shortness of breath, or abdominal pain. Patient states that she lives with her sibling who just tested positive for the flu. MD elicited complaint: fever, cough and nasal congestion Consistency: constant Able to tolerate fluids by mouth: Yes Exacerbating factors: nothing Relieving factors: nothing Associated symptoms: fever, chills, myalgias, headache, rhinorrhea, nasal congestion and cough Treatments prior to arrival: none Related Data Previous Rx's Medication Instructions Recorded ketotifen fumarate 0.025 % (0.035 1 drp ophthalmic (eye) Q12H 15 03/07/21 %) eye drops (Allergy Eye days #5 mL (ketotifen)) tizanidine 4 mg tablet 4 mg PO BEDTIME PRN muscle 02/19/22 spasticity 30 days #30 tabs wrist splint #1 ea 06/26/22 cholecalciferol (vitamin D3) 50 50 mcg PO DAILY 90 days #90 caps 08/20/22 mcg (2,000 unit) capsule hydroxyzine HCl 25 mg tablet 25 mg PO BID PRN itching 30 days 12/01/22 #60 tabs meclizine 25 mg tablet 25 mg PO TID PRN dizziness 90 days 12/05/22 #270 tabs fluticasone propionate 50 1 spray intranasal DAILY #16 grams 12/06/22 mcg/actuation nasal spray,suspension (Flonase Allergy Relief) loratadine 10 mg tablet 10 mg PO DAILY #30 tabs 12/06/22 acetaminophen 325 mg tablet 650 mg (2 x 325 mg) PO Q6H PRN 04/06/23 (Tylenol) pain #30 tabs ibuprofen 600 mg tablet 600 mg PO Q6H PRN pain #30 tabs 04/06/23 omeprazole 20 mg capsule,delayed 20 mg PO DAILY #90 caps 09/14/23 release acetaminophen 500 mg tablet 500 mg PO Q6H PRN fever or pain 09/21/23 (Tylenol Extra Strength) #30 tabs ibuprofen 600 mg tablet 600 mg PO Q6H PRN pain #30 tabs 09/21/23 Allergies Allergy/AdvReac Type Severity Reaction Status Date / Time Penicillins [PENICILLINS] Allergy Intermediate RASH Verified 09/14/23 11:37 seafood Allergy Intermediate Anaphylaxis Verified 09/14/23 11:37 Review of Systems Review of Systems: Yes all other systems are reviewed and are negative Constitutional: Constitutional: Reports as per [facility] Past Medical History Attestation statement: The following information was validated with the patient. Medical History Fibroid Physical exam Obesity (BMI 35.0-39.9 without comorbidity) Left sided sciatica Impaired glucose tolerance Vertigo Left knee pain Knee pain Surgical History H/O colonoscopy Skin cancer History of tubal ligation Family History Family History Father Throat cancer Mother Diabetes Hypertension Daughter In good health Sister In good health Son In good health Brother In good health Social History Social History Household Members: Spouse Housing: Apartment Alcohol intake: never Patient Tobacco Use Status: Never used Tobacco e-Cigarette/Vaping Use: Never Used Second Hand Smoke Exposure: No Advance Directives: No Advance Directives Information Provided: Yes service: No Current occupational status: employed 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[employer] [place] Current occupational exposures/hazards: No Cognitive needs: No Hearing needs: No Vision needs: Yes Physical Exam Vital Signs: Vital Signs: Last Vital Signs Temp 99.2 F 09/21/23 09:34 Pulse 107 H 09/21/23 09:34 Resp 16 09/21/23 09:34 BP 135/84 09/21/23 09:34 Pulse Ox 97 09/21/23 09:34 O2 Del Method Room Air 09/21/23 09:34 BMI result Body Mass Index 32.0 Const: General: cooperative, comfortable and no acute distress Orientation/consciousness: patient oriented x3 Limitations: no limitations HEENT: Head: Yes normal to inspection, Yes normocephalic and Yes atraumatic Ears: hearing grossly normal bilaterally and TM's normal bilaterally General nose exam: Normal external nose present Face and sinus: Yes normal facial exam Mouth: Normal oral and palatal mucosa present, oropharynx normal and moist mucous membranes Throat: Yes posterior oropharynx normal, Yes tonsils normal and Yes uvula midline Eyes: General: appearance normal, both eyes and all related structures Eyelids: Yes eyelids normal Conjunctivae: conjunctivae normal Sclerae: sclerae normal Pupils: Equal, round and reactive pupils present EOM: EOMs intact bilaterally Neck: Neck: Yes normal visual inspection, Yes full ROM and Yes no lymphadenopathy Lymphatic: no lymphadenopathy noted Chest: Chest palpation & inspection: normal inspection of the chest Resp: Effort & Inspection: normal respiratory effort and able to speak in complete sentences Auscultation: clear to auscultation bilaterally, no crackles, no rales, no rhonchi and no wheezes Cardio: Rate: regular rate Rhythm: regular rhythm Heart sounds: S1 normal heart sound present and S2 normal heart sound present GI: Other: Abdomen is soft, nontender, nondistended Inspection: Yes normal to inspection Skin: General skin exam: no rashes or lesions noted Trauma: no lacerations or abrasions Wounds: no wounds Neuro: General: patient oriented x3 and moves all extremities Cranial nerves: Yes Equal, round and reactive pupils present Extrem: General: Yes normal to inspection Right upper extremity: normal to inspection Left upper extremity: normal to inspection Right lower extremity: normal to inspection Left lower extremity: normal to inspection Medications Administered Discontinued Medications Generic Name Dose Route Start Last Admin Trade Name Freq PRN Reason Stop Dose Admin Acetaminophen 975 mg 09/21/23 09:27 09/21/23 09:49 Acetaminophen 325 Mg Tablet PO 09/21/23 09:28 975 mg ONCE ONE Administration Medical Decision Making Medical Decision Making [facility] Narrative: This is a 57-year-old female, with a history of BPPV, presenting to the emergency department for evaluation of body aches, fevers, headache, productive cough since last night. On arrival, patient nontoxic appearing, speaking in full sentences, in no acute distress. Differential diagnoses include COVID, flu, URI, pneumonia-unlikely. Patient tested positive flu. She was tachycardic at 116 and temperature was 100.4 during triage, repeat vitals were 99.2 orally, tachycardic at 107, likely due to virus, she has no chest pain or shortness a breath therefore further workup not required at this time. Will treat conservatively, discussed administration of Tamiflu however she declines. Will treat with ibuprofen and Tylenol, given return precautions. Patient understands agrees with plan. Patient stable for discharge. Differential Diagnosis Differential Diagnoses: The differential diagnosis associated with the presentation includes See above Admission/Observation Consideration of admission/observation: Escalation of care including admission/observation considered Lab Data MDM Lab Attestation statement: I reviewed the patient's lab results. Influenza a positive Labs: Lab Results 09/21/23 Range/Units 08:24 COVID-19 (MARISSA) Negative (Negative) COVID-19 Clin Com See Note Influenza Type A (TYRA) Positive A (Negative) Influenza Type B (TYRA) Negative (Negative) Influenza A & B Note See Note Radiology Impression Discussion of test interpretation with radiology: I have reviewed the radiologist's reading. External Record Review External record reviewed: Inpatient record, Office record, Outpatient record, Prior outpatient labs, Prior outpatient radiology, Primary care record and Outside ED record Prescription Management I considered prescription management with: Antiviral Discussed antiviral, Tamiflu however she declines Discharge Plan Discharge Clinical Impression: Influenza A Patient Disposition: Home, Self-Care Instructions: Influenza (ED) Additional Instructions: You tested positive for the flu today. This is a virus that can cause fevers, chills, body aches, and cough as well as other symptoms. This is contagious therefore it is important for you to limit your exposure to other individuals as you may get them sick as well. Please drink plenty of fluids and get plenty of rest. Alternate between Tylenol and Motrin as needed for pain and fevers. If any new or worsening symptoms occur including but not limited to chest pain, shortness of breath, fevers not responding to Tylenol or Motrin, please return for re-evaluation. Follow-up with your primary care physician, call today to make an appointment. Hoy diste positivo por gripe. [place] es un virus que puede causar fiebre, escalofr?os, nic corporales y tos, adem?s de otros s?ntomas. [place] es contagioso, por lo que es importante que limite torre exposici?n a otras personas, ya que puede enfermarlas tambi?n. Alena muchos l?quidos y descanse lo suficiente. [place] entre Tylenol y Motrin seg?n sea necesario para el dolor y la fiebre. Si se presenta alg?n s?ntoma nuevo o que empeora, incluidos, entre otros, dolor en el pecho, dificultad para respirar, fiebre que no responde a Tylenol o Motrin, regrese para debra nueva evaluaci?n. Brandy un seguimiento con torre m?dico de atenci?n primaria, llame hoy para programar edbra jayson. Prescriptions: New ibuprofen 600 mg tablet 600 mg PO Q6H PRN (Reason: pain) Qty: 30 0RF acetaminophen [Tylenol Extra Strength] 500 mg tablet 500 mg PO Q6H PRN (Reason: fever or pain) Qty: 30 0RF No Action ketotifen fumarate [Allergy Eye (ketotifen)] 0.025 % (0.035 %) drops 1 drp ophthalmic (eye) Q12H 15 Days Qty: 5 1RF cholecalciferol (vitamin D3) 50 mcg (2,000 unit) capsule 50 mcg PO DAILY 90 Days Qty: 90 3RF hydroxyzine HCl 25 mg tablet 25 mg PO BID PRN (Reason: itching) 30 Days Qty: 60 0RF meclizine 25 mg tablet 25 mg PO TID PRN (Reason: dizziness) 90 Days Qty: 270 3RF loratadine 10 mg tablet 10 mg PO DAILY Qty: 30 2RF fluticasone propionate [Flonase Allergy Relief] 50 mcg/actuation spray,suspension 1 spray intranasal DAILY Qty: 16 0RF Rx Instructions: administer into each nostril ibuprofen 600 mg tablet 600 mg PO Q6H PRN (Reason: pain) Qty: 30 0RF acetaminophen [Tylenol] 325 mg tablet 650 mg PO Q6H PRN (Reason: pain) Qty: 30 0RF tizanidine 4 mg tablet 4 mg PO BEDTIME PRN (Reason: muscle spasticity) 30 Days Qty: 30 0RF (DME) wrist splint See Rx Instructions .Route .MEDSUPPLY Qty: 1 0RF Rx Instructions: wear it as much as possible throughout the day omeprazole 20 mg capsule,delayed release(DR/EC) 20 mg PO DAILY Qty: 90 0RF Stand Alone Forms: Work/School Release Interventions: ED Discharge Assessment Last Done: 09/21/23 09:44 Discharge Date/Time: 09/21/23 09:50
[2023-09-21 09:34] VITALS: BP 135/84; PULSE 107; RESP 16; TEMP 37.3; O2SAT 97
[2023-09-21] MEDS: Acetaminophen 325 MG TABLET 975 MG PO (09:49)
== END 2023-09-21 09:50 | disposition home or self-care (01) ==
PROVIDERS: Emergency Provider Emergency Medicine; PCP Internal Medicine
DX: J10.1 Influenza due to other identified influenza virus with other respiratory manifestations (principal); Z11.52 Encounter for screening for COVID-19
CPT/HCPCS: 87502; 87635; 99283

== ENCOUNTER 2023-10-02 13:02 | Outpatient (AMB) | payer OTHER, SELFPAY ==
[2023-10-02 13:09] VITALS: BP 118/70; BMI 31.9
--- NOTE | 2023-10-02 13:09 | MHC.OFFVIS ---
Intake Vital Signs 10/02/23 13:09 Height 5 ft 7 in Weight 204 lb BMI 31.9 BP 118/70 Intake Visit Reasons: EMB Results/30 mins Developer Programmer Analyst Required: Yes Developer Programmer Analyst Name: Criselda MILLER Information Interpreted: non-clinical & clinical Tour Bus Driver/Guide: Tour Bus Driver/Guide Present Accompanied by: Self / Same As Patient Allergies Penicillins [PENICILLINS] Allergy (Intermediate, Verified 09/14/23 11:37) RASH seafood Allergy (Intermediate, Verified 09/14/23 11:37) Anaphylaxis Is last menstrual period known: No Post menopausal: Yes Patient : No HPI HPI Comments History of Present Illness Details Patient is here today for follow-up for her endometrial biopsy results. She had a previous ultrasound due for pelvic pressure symptoms which revealed limited views. Endometrial stripe was thicker than usual for a postmenopausal woman based on ultrasound findings. She she reports her pelvic pressure has completely resolved and has not had any postmenopausal bleeding. [facility] Medical History Fibroid Physical exam Obesity (BMI 35.0-39.9 without comorbidity) Left sided sciatica Impaired glucose tolerance Vertigo Left knee pain Knee pain Surgical History H/O colonoscopy Skin cancer History of tubal ligation Family History Father Throat cancer Mother Diabetes Hypertension Daughter In good health Sister In good health Son In good health Brother In good health Social History Household Members: Spouse Housing: Apartment Alcohol intake: never Patient Tobacco Use Status: Never used Tobacco e-Cigarette/Vaping Use: Never Used Second Hand Smoke Exposure: No Patient : No service: No Current occupational status: employed 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 [employer] Current occupational exposures/hazards: No Cognitive needs: No Hearing needs: No Vision needs: Yes Review of Systems Const All systems reviewed & are unremarkable except as noted in HPI and below Endo Reports no additional complaints Physical Exam Vital Signs: Last Vital Signs BP 118/70 10/02/23 13:09 BMI result Body Mass Index 31.9 Const General: cooperative, healthy appearing and no acute distress Psych Appearance: well kempt Attitude: cooperative Thought process: Normal thought process present Results Reviewed Results Reviewed: Name: Amy Girard Age/Sex: 57/F Attending: Faiza Beltran CNM : 1965 Submitted by: Faiza Beltran CNM Copies to: Luanne Storey MD MR #: [id number] Status: DEP REF Collected: 09/03/23 Location: [facility] Received: 09/03/23 Diagnosis Endometrium, biopsy: - Superficial strips of inactive endometrium; no atypia or hyperplasia identified. - Endocervical and squamous epithelium with reactive and degenerative changes; mucoinflammatory material. Clinical History Endometrial thickening Microscopic Description Microscopic sections reviewed. Material Received EMB Gross Description Received in formalin labeled ?EMB? multiple pieces of white and hemorrhagic tissue 1.5 x 1.0 x 0.5 cm in aggregate, all submitted in cassette labeled A. FM This case was reviewed intradepartmentally. Copies To Faiza Beltran CNM [address] [place] [address] [address] [place] [address] Luanne Storey MD [address] [place] [address] [address] [place] [address] NOTE: Unless otherwise stated, all tissue is formalin-fixed and paraffin-embedded. Some or all of the immunohistochemical tests reported herein may have been developed and their performance characteristics determined by [facility]. They have not been cleared or approved by the U.S. Food and Drug Administration (FDA). However, the FDA has determined that such clearance or approval is not necessary. This laboratory is certified under the Clinical Laboratory Improvement Amendments of 1988 (CLIA) as qualified to perform high complexity clinical laboratory testing. Patient: Amy Girard Age/Sex: 57/F MR#: [id number] Page 1 of 2 Surgical Pathology [id number] Electronically Signed By: Arvin Sanchez MD 09/07/23 3902 Patient: Amy Girard Age/Sex: 57/F MR#: [id number] Assessment & Plan Assessment & Plan (1) Thickened endometrium: Code(s): R93.89 - Abnormal findings on diagnostic imaging of other specified body structures (2) Encounter to discuss test results: Code(s): Z71.2 - Person consulting for explanation of examination or test findings Plan Discussed: Endometrial biopsy results are negative for atypia or carcinoma. Advised to call the office if there are ever is any postmenopausal bleeding, pelvic pain, significant persistent bloating or any other rn gyn concerns. All of her questions and concerns were addressed to the best of my ability and shared decision making. She is agreeable to the plan of care. Return to the office for her yearly annual exam. Appointment is booked for May 24. This note is constructed using voice recognition software. While every effort has been made to ensure accuracy, real estate agency principal errors may have been included. Coding Level of Care Code Est Pt Level 3 (00200) Diagnoses Thickened endometrium R93.89 Encounter to discuss test results Z71.2
== END 2023-10-02 14:57 | disposition home or self-care (01) ==
LOC: HO.HWS 13:02
PROVIDERS: PCP Internal Medicine; Visit Provider Advanced Practice Midwife
DX: R93.89 Abnormal findings on diagnostic imaging of other specified body structures (principal); Z71.2 Person consulting for explanation of examination or test findings
CPT/HCPCS: 99213

== ENCOUNTER → 2023-10-02 13:02 | Outpatient (BNVA) | payer OTHER, SELFPAY | PROVIDERS: PCP Internal Medicine; Visit Provider Advanced Practice Midwife | DX: Z71.2 Person consulting for explanation of examination or test findings (principal); R93.89 Abnormal findings on diagnostic imaging of other specified body structures | CPT/HCPCS: 99212 ==

== ENCOUNTER 2023-10-29 16:51 | Outpatient (AMB) | payer OTHER, SELFPAY ==
[2023-10-29 16:56] VITALS: BP 120/80; BMI 32.7
--- NOTE | 2023-10-29 16:56 | MHC.PC.OV ---
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 Accompanied by: Self / Same As Patient Allergies Penicillins [PENICILLINS] Allergy (Intermediate, Verified 10/29/23 17:08) RASH seafood Allergy (Intermediate, Verified 10/29/23 17:08) Anaphylaxis Medication List - Last Reconciled 10/29/23 by Luanne Zazueta MD acetaminophen (Tylenol Extra Strength) 500 mg PO Q6H PRN acetaminophen (Tylenol) 650 mg (2 x 325 mg) PO Q6H PRN cholecalciferol (vitamin D3) 50 mcg PO DAILY 90 days fluticasone propionate 50 mcg/actuation (Flonase Allergy Relief) 1 spray intranasal DAILY hydroxyzine HCl 25 mg PO BID PRN 30 days ibuprofen 600 mg PO Q6H PRN ketotifen fumarate 0.025%(0.035%) (Allergy Eye (ketotifen)) 1 drp ophthalmic (eye) Q12H 15 days loratadine 10 mg PO DAILY meclizine 25 mg PO TID PRN 90 days omeprazole 20 mg PO DAILY tizanidine 4 mg PO BEDTIME PRN 30 days [wrist splint wear it as much as possible throughout the day] Tobacco use date assessed: 10/29/23 Dental Screening Dental Screen Date: 10/29/23 Did you have a dental visit in the last 12 months?: Yes Did you have a dental problem in the last 6 months where you did not have access to dental care?: No Was dental information given to patient?: Patient has dentist HPI HPI Comments History of Present Illness Details This is a 57-year-old female that comes for her physical exam. Last mammogram was 2021. Last Pap smear was less than a year ago. Last colonoscopy was 2016 and next colonoscopy should be 2026. No chest pain or shortness of breath. Has achalasia and will call to make an appointment for endoscopy because she had to cancel it. [facility] Medical History Fibroid Physical exam Obesity (BMI 35.0-39.9 without comorbidity) Left sided sciatica Impaired glucose tolerance Vertigo Left knee pain Knee pain Surgical History H/O colonoscopy Skin cancer History of tubal ligation Family History Father Throat cancer Mother Diabetes Hypertension Daughter In good health Sister In good health Son In good health Brother In good health Social History Household Members: Spouse Housing: Apartment Alcohol intake: never Patient Tobacco Use Status: Never used Tobacco e-Cigarette/Vaping Use: Never Used Second Hand Smoke Exposure: No service: No Current occupational status: employed 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 1. Little interest or pleasure in doing things: not at all 2. Feeling down, depressed, or hopeless: not at all 3. Trouble falling or staying asleep, or sleeping too much: not at all 4. Feeling tired or having little energy: not at all 5. Poor appetite or overeating: not at all 6. Feeling bad about yourself - or that you are a failure or have let yourself or your family down: not at all 7. Trouble concentrating on things, such as reading the newspaper or watching television: not at all 8. Moving or speaking so slowly that other people could have noticed. Or the opposite - being so fidgety or restless that you have been moving around a lot more than usual: not at all 9. Thoughts that you would be better off or of hurting yourself in some way: not at all Total score: 0 Depression Screening Interpretation: Negative Depression Screening Done: Yes 33432 - PHQ-9 Billing: Yes Source: Developed by Drs. Ryan Hart, Meme Aamya, Bennett Singh and colleagues, with an educational syeda from [employer]. Thrive Questionnaire Date Thrive assessed: 10/29/23 I am a: Patient What is your living situation today?: I have a steady place to live Within the past 12 months, did the food you bought not last and you didn't have the money to get more?: Never true Within the past 12 months, did you worry whether your food would run out before you got money to buy more?: Never true Do you have trouble paying for medicines?: No Do you have trouble getting transportation to medical appointments?: No Do you have trouble paying your heating and electricity bill?: No Do you have trouble taking care of your child, family member or friend?: No Do you have trouble with day-to-day activities such as bathing, preparing meals, shopping, managing finances, etc.?: No Are you currently unemployed and looking for a job?: No Are you interested in more education?: No Please select the resources that you would like help with: None Currently or been in a relationship where the following occur: no concerns reported THRIVE Score: 0 AUDIT C Alcohol Use Questionnaire (AUDIT-C) 1. How often do you have a drink containing alcohol?: Monthly or less 2. How many drinks containing alcohol do you have on a typical day when you are drinking?: 1 or 2 3. How often do you have six or more drinks on one occasion?: Never Total Score: 1 RYAN-7 AMB Questionnaire RYAN-7 Date RYAN - 7 assessed: 10/29/23 Feeling nervous, anxious, or on edge: 0 = Not at all Not being able to stop or control worryin = Not at all Worrying too much about different things: 0 = Not at all Trouble relaxin = Not at all Being so restless that it is hard to sit still: 0 = Not at all Becoming easily annoyed or irritable: 0 = Not at all Feeling afraid as if something awful might happen: 0 = Not at all Total RYAN-7 score (0-4 normal; 5-9 mild; 10-14 moderate; 15-21 severe): 0 Source: Developed by Drs. Ryan Hart, Meme Amaya, Bennett Singh and colleagues, with an educational syeda from [employer]. RYAN-7 Assessment Billing RYAN-7 Assessment Tool: RYAN-7 Assessment 41935 Review of Systems Const All systems reviewed & are unremarkable except as noted in HPI and below Eyes Reports no additional complaints, Denies change in vision and Denies other visual disturbances Card Denies chest pain at rest, Denies chest pain with activity, Denies edema, Denies irregular heart rhythm, Denies claudication, Denies dyspnea, Denies dyspnea on exertion, Denies orthopnea, Denies paroxysmal nocturnal dyspnea and Denies slow heart rate Resp Denies cough, Denies dyspnea and Denies dyspnea on exertion GI Denies abdominal pain, Denies change in bowel habits, Denies excessive flatus, Denies nausea and Denies vomiting Denies urinary incontinence, Denies urinary hesitancy and Denies urinary urgency Musc Denies atrophy, Denies deformity and Denies limited range of motion Physical exam (Primary Care) Vital Signs: Last Vital Signs BP 120/80 10/29/23 16:56 BMI result Body Mass Index 32.7 Tobacco/Smoking Status: Tobacco use Status Tobacco use date assessed 10/29/23 10/29/23 17:02 Patient Tobacco Use Status Never used Tobacco 10/29/23 17:02 e-Cigarette/Vaping Use Never Used 10/29/23 17:02 PHQ-9: PHQ-9 Score PHQ-9: Total score 0 10/29/23 17:02 Depression Screening Interpretation: Negative Thrive Assessment: Date of Thrive Assessment Date Thrive assessed 10/29/23 10/29/23 17:02 Currently or been in a relationship where the following occur: no concerns reported Const Orientation/consciousness: patient oriented x3 [facility] Head: Yes normal to inspection, Yes normocephalic and Yes atraumatic Ears: external ears normal Eyes General: appearance normal, both eyes and all related structures Eyelids: Yes eyelids normal Conjunctivae: conjunctivae normal Neck Neck: Yes normal visual inspection and Yes supple Resp Effort & Inspection: normal respiratory effort Auscultation: clear to auscultation bilaterally Cardio Jugular venous distension: no JVD Rate: regular rate Rhythm: regular rhythm Heart sounds: S1 normal heart sound present and S2 normal heart sound present GI Inspection: Yes normal to inspection Palpation (GI): Soft to palpation and nontender Auscultation: normal bowel sounds Skin General skin exam: no rashes or lesions noted Neuro General: patient oriented x3 and no focal motor deficits Extrem General: Yes full ROM Psych Appearance: grossly normal Assessment and Plan Assessment & Plan (1) Physical exam: Code(s): Z00.00 - Encounter for general adult medical examination without abnormal findings Plan: Repeat in a year Coding Level of Care Code Est Pt Prev Care 40-64y(71436) Diagnoses Physical exam Z00.00 Additional Codes RYAN-7 Assessment Billing - RYAN-7 Assessment Tool: RYAN-7 Assessment 63865 ([id number]) Time Spent (min) 31
== END 2023-10-29 17:16 | disposition home or self-care (01) ==
PROVIDERS: Visit Provider Internal Medicine
DX: Z00.00 Encounter for general adult medical examination without abnormal findings (principal)
CPT/HCPCS: 99396

== ENCOUNTER 2024-04-19 06:39 | Day surgery (SDC) | payer OTHER, SELFPAY ==
--- NOTE | 2023-10-26 10:03 | HO.ANESPROP2 ---
HPI - Anesthesia Eval Consult details Narrative: 57yo F for Upper Endoscopy with dilation [facility] Active Problems Active Problems: All Active Problems (Updated 09/22/23 @ 00:00 by Alexandra Leblanc) GERD (gastroesophageal reflux disease) (Acute) Fibroid (Acute) Achalasia (Acute) Pelvic pain (Acute) Encounter for annual routine gynecological examination (Acute) Dysphagia (Acute) Screen for colon cancer (Acute) Physical exam (Acute) Carpal tunnel syndrome, right (Acute) CRP elevated (Acute) Polyarthralgia (Acute) BPPV (benign paroxysmal positional vertigo) (Acute) Hypovitaminosis D (Acute) Cervical radiculitis (Acute) Strain of cervical portion of left trapezius muscle (Acute) Facet arthritis of cervical region (Acute) Allergic dermatitis (Acute) Neck pain (Acute) Physical exam (Acute) Obesity (BMI 35.0-39.9 without comorbidity) (Acute) Left sided sciatica (Acute) Impaired glucose tolerance (Acute) Vertigo (Acute) Left knee pain (Acute) Knee pain (Acute) Past Medical History Medical History Fibroid Physical exam Obesity (BMI 35.0-39.9 without comorbidity) Left sided sciatica Impaired glucose tolerance Vertigo Left knee pain Knee pain Family History Family History Father Throat cancer Mother Diabetes Hypertension Daughter In good health Sister In good health Son In good health Brother In good health Surgical History Surgical History H/O colonoscopy Skin cancer History of tubal ligation Social History Social History Household Members: Spouse Housing: Apartment Alcohol intake: never Patient Tobacco Use Status: Never used Tobacco e-Cigarette/Vaping Use: Never Used Second Hand Smoke Exposure: No Patient : No service: No Current occupational status: employed 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
[2024-04-15 07:26] VITALS: BMI 33.1
--- NOTE | 2024-04-18 09:17 | P.CONAN_ITS ---
HPI - Anesthesia Eval Consult details Narrative: 58yo F for Upper Endoscopy with dilation PMFSH Active Problems Active Problems: All Active Problems GERD (gastroesophageal reflux disease) (Acute) Fibroid (Acute) Achalasia (Acute) Pelvic pain (Acute) Encounter for annual routine gynecological examination (Acute) Dysphagia (Acute) Screen for colon cancer (Acute) Physical exam (Acute) Carpal tunnel syndrome, right (Acute) CRP elevated (Acute) Polyarthralgia (Acute) BPPV (benign paroxysmal positional vertigo) (Acute) Hypovitaminosis D (Acute) Cervical radiculitis (Acute) Strain of cervical portion of left trapezius muscle (Acute) Facet arthritis of cervical region (Acute) Allergic dermatitis (Acute) Neck pain (Acute) Physical exam (Acute) Obesity (BMI 35.0-39.9 without comorbidity) (Acute) Left sided sciatica (Acute) Impaired glucose tolerance (Acute) Vertigo (Acute) Left knee pain (Acute) Knee pain (Acute) Past Medical History Medical History Fibroid Physical exam Obesity (BMI 35.0-39.9 without comorbidity) Left sided sciatica Impaired glucose tolerance Vertigo Left knee pain Knee pain Family History Family History Father Throat cancer Mother Diabetes Hypertension Daughter In good health Sister In good health Son In good health Brother In good health Surgical History Surgical History H/O colonoscopy Skin cancer History of tubal ligation Social History Social History Household Members: Spouse Housing: Apartment Are you a primary critical care transport nurse to a significant other at home: No Do you presently have visiting nurse or other home services: No Alcohol intake: never Patient Tobacco Use Status: Never used Tobacco e-Cigarette/Vaping Use: Never Used Second Hand Smoke Exposure: No service: No Current occupational status: employed 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
--- NOTE | 2024-04-19 07:41 | MHC.SHP ---
Pre-Procedural Eval Section A - 24 Hr Update-Section A only Date of Service: 04/19/24 The patient is an INPATIENT: No The patient has been examined within 24 hours of the surgical procedure. The History & Physical has been completed within 30 days and I have reviewed it.: No Section B - Complete if H&P > 30 days Chief Complaint: Dysphagia, unspecified Relevant Family History (Specify if Yes): No Relevant Social History: None Present Medications: see Short Stay Collaborative assessment Medical History: Significant History (Obesity (BMI 35.0-39.9 without comorbidity) Left sided sciatica Impaired glucose tolerance Vertigo Left knee pain) History of Previous Operations: Relevant previous surgery/procedure and date(s) (H/O colonoscopy Skin cancer History of tubal ligation) Allergies: Allergies Allergy/AdvReac Type Severity Reaction Status Date / Time Penicillins [PENICILLINS] Allergy Intermediate RASH Verified 10/29/23 17:08 seafood Allergy Intermediate Anaphylaxis Verified 10/29/23 17:08 Review of Systems Sugical H&P ROS: Negative: Constitution, Cardiovascular, Respiratory and Gastrointestinal Exam Surgical H&P Exam: Normal: Heart, Normal: Lungs, Normal: Extremities and Normal: Abdomen Plan Diagnosis/Plan: Unchanged I have reviewed the history and physical and performed a pertinent physical examination on my patient. No changes have occurred unless specified. Time Spent With Patient Time: Total time managing care of this patient today ____ minutes.
--- NOTE | 2024-04-19 08:00 | HO.ANESPROP2 ---
[facility] Active Problems Active Problems: All Active Problems GERD (gastroesophageal reflux disease) (Acute) Fibroid (Acute) Achalasia (Acute) Pelvic pain (Acute) Encounter for annual routine gynecological examination (Acute) Dysphagia (Acute) Screen for colon cancer (Acute) Physical exam (Acute) Carpal tunnel syndrome, right (Acute) CRP elevated (Acute) Polyarthralgia (Acute) BPPV (benign paroxysmal positional vertigo) (Acute) Hypovitaminosis D (Acute) Cervical radiculitis (Acute) Strain of cervical portion of left trapezius muscle (Acute) Facet arthritis of cervical region (Acute) Allergic dermatitis (Acute) Neck pain (Acute) Physical exam (Acute) Obesity (BMI 35.0-39.9 without comorbidity) (Acute) Left sided sciatica (Acute) Impaired glucose tolerance (Acute) Vertigo (Acute) Left knee pain (Acute) Knee pain (Acute) Past Medical History Medical History Fibroid Physical exam Obesity (BMI 35.0-39.9 without comorbidity) Left sided sciatica Impaired glucose tolerance Vertigo Left knee pain Knee pain Functional capacity: independent ambulation Patient : No Family History Family History Father Throat cancer Mother Diabetes Hypertension Daughter In good health Sister In good health Son In good health Brother In good health Family history of problems with anesthesia: No Surgical History Surgical History H/O colonoscopy Skin cancer History of tubal ligation History of Problems with Anesthesia: No Social History Social History Household Members: Spouse Housing: Apartment Are you a primary special needs caregiver to a significant other at home: No Do you presently have visiting nurse or other home services: No Alcohol intake: never Patient Tobacco Use Status: Never used Tobacco e-Cigarette/Vaping Use: Never Used Second Hand Smoke Exposure: No service: No Current occupational status: employed 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 [employer] Current occupational exposures/hazards: No Cognitive needs: No Hearing needs: No Vision needs: Yes Meds Allergies Allergy/AdvReac Type Severity Reaction Status Date / Time Penicillins [PENICILLINS] Allergy Intermediate RASH Verified 04/19/24 08:01 seafood Allergy Intermediate Anaphylaxis Verified 04/19/24 08:01 Active Medications: Current Medications Lactated Ringer's (Lr) 1,000 mls @ 100 mls/hr IVCONT .Q10H CASANDRA Exam Height,Weight and Vital Signs: Height 5 ft 6 in Weight 92.986 kg Airway Mallampati Class: III TM Dist: >3cm Neck ROM: Full Heart: RRR Lungs: CTA Assessment and Plan Assessment Anesthesia Assessment: Anesthesia Plan Discussed Final Anesthetic Review Family History of Problems with Anesthesia: No History of Problems with Anesthesia: No NPO: Yes ASA Class: II Final Preanesthetic Review: Meds/Allgs Chart Reviewed, Consent Obtained/Reviewed and Anes Risks/Benef Reviewed Patient Risk: Low Procedure Risk: Low Anesthetic Plan Anesthetic Plan: MAC: Disposition: Standard PACU
[2024-04-19 08:03] VITALS: BMI 34.0
[2024-04-19 08:06] VITALS: BP 151/84; PULSE 91; RESP 16; TEMP 37.1; O2SAT 99
[2024-04-19] MEDS: Lactated Ringers 1,000 ML 100 ML IVCONT (08:14)
[2024-04-19 09:12] VITALS: BP 116/86; PULSE 95; RESP 16; TEMP 36.4; O2SAT 95
--- NOTE | 2024-04-19 09:16 | W.PM.OPN ---
Operative Note Operative Note Date of Service: 04/19/24 Narrative: FLEXIBLE TRANSORAL UPPER GASTROINTESTINAL ENDOSCOPY WITH BIOPSIES AND ESOPHAGEAL BALLOON DILATION Pre-op diagnosis: GERD, Dysphagia, abnormal barium swallow Post-op diagnosis: GERD, dysphagia, hiatal hernia, multiple gastric and duodenal ulcers Endoscopist:? Norma Andrade MD Anesthesia:?MAC UPPER ENDOSCOPY Consent: Indications for the procedure and potential complications of bleeding, perforation, reaction to medications and missed diagnosis were discussed with the patient and informed consent was obtained. Instrument: Olympus GIF H 190 mid size upper endoscope Monitoring: Vital signs and clinical assessment, continuous EKG monitoring, Pulse oximetry, Carbon Dioxide monitoring and blood pressure monitoring were done throughout the procedure. Procedure: The patient was placed in the left lateral decubitis position and pre-procedure medications were administered and a bite block was placed. The endoscope was inserted into the mouth and advanced under direct vision to the third part of duodenum. A careful inspection was made as the upper endoscope was withdrawn including a retroflexed examination of the proximal stomach; Findings and interventions are described below. Findings: Larynx: Normal Esophagus: GE junction at 35 cms, small hiatal hernia 35 to 37 cms. Mildly tortuous esophagus with increased tertiary contractions without stricture or ring Empiric balloon dilation of distal esophagus was performed with a 20 mm (60 F) x 60 seconds Empiric balloon dilation of proximal esophagus was performed with an 18 mm (54 F) CRE balloon x 60 seconds Stomach: Moderate diffuse gastric erythema - biopsies were obtained from the antrum. Multiple superficial ulcers in the antrum and pre-pyloric area. Grade 2 flap valve on retroflexed examination of the cardia. Duodenum: Superficial ulcers in the bulb and normal and descending duodenum Intervention: Biopsies as noted above Impression and Post Procedure Diagnosis: Endoscopy Findings: ESOPHAGUS: small hiatal hernia 35 to 37 cms. Mildly tortuous esophagus with increased tertiary contractions without stricture or ring Empiric balloon dilation of proximal and distal esophagus was performed STOMACH: Multiple superficial ulcers in the antrum and pre-pyloric area. DUODENUM: Superficial ulcers in the bulb Plan: Pt to schedule a FU appointment with Dr Huber Above findings were reviewed with the patient and relevant handouts were given and the discharge area. Pt was advised to increase Omeprazole to 20 mg twice daily
[2024-04-19 09:25] VITALS: BP 119/85; PULSE 87; RESP 16; TEMP 36.1; O2SAT 97
--- NOTE | 2024-04-19 09:40 | HO.POSTANES ---
Post Anesthesia Evaluation Post Anesthesia Evaluation Date of Service: 04/19/24 Vital Signs: Vital Signs Temp Pulse Resp BP Pulse Ox O2 Del Method 04/19/24 09:25 97 F 87 16 119/85 97 Room Air 04/19/24 09:12 97.5 F 95 16 116/86 95 Room Air 04/19/24 08:06 98.7 F 91 16 151/84 H 99 Room Air Anesthesia: Monitored Mental Status: Awake Pain Control: Satisfactory Nausea/Vomiting: None Hydration: Adequate Anesthesia-Related Issues: No Anes. Related Issues
== END 2024-04-19 09:44 | disposition home or self-care (01) ==
PROVIDERS: PCP Internal Medicine; Visit Provider Internal Medicine Gastroenterology
PROC: 0DJ08ZZ Inspection of Upper Intestinal Tract, Via Natural or Artificial Opening Endoscopic (ICD-10-PCS; CPT 43235; principal; 2024-04-19 08:30)
DX: R13.10 Dysphagia, unspecified (principal); K22.0 Achalasia of cardia; K25.9 Gastric ulcer, unspecified as acute or chronic, without hemorrhage or perforation; A04.8 Other specified bacterial intestinal infections; K44.9 Diaphragmatic hernia without obstruction or gangrene; K21.9 Gastro-esophageal reflux disease without esophagitis; E66.9 Obesity, unspecified; Z68.35 Body mass index [BMI] 35.0-35.9, adult; R73.02 Impaired glucose tolerance (oral); Z85.828 Personal history of other malignant neoplasm of skin; Z79.899 Other long term (current) drug therapy; Z88.0 Allergy status to penicillin; Z98.51 Tubal ligation status
CPT/HCPCS: 43249; 43239; 88305; 88313; 88342; J2704

== ENCOUNTER → 2024-04-19 06:39 | Outpatient (BNV) | payer OTHER, SELFPAY | PROVIDERS: PCP Internal Medicine; Visit Provider Internal Medicine Gastroenterology | DX: R13.10 Dysphagia, unspecified (principal); K25.9 Gastric ulcer, unspecified as acute or chronic, without hemorrhage or perforation; K21.9 Gastro-esophageal reflux disease without esophagitis | CPT/HCPCS: 43239; 43249 ==

== ENCOUNTER 2024-12-13 07:10 | Outpatient (AMB) | payer OTHER, SELFPAY ==
--- NOTE | 2024-12-13 07:39 | A.OFFPC_ITS ---
Vital Signs 12/13/24 07:42 Height 5 ft 6 in Weight 206 lb BMI 33.2 BP 110/72 Blood Pressure Location Lt brachial Position Sitting Intake Visit Reasons: Annual exam Intake Note: Patient here for a physical exam Department Clerk Required: No Accompanied by: Self / Same As Patient Allergies Penicillins [PENICILLINS] Allergy (Intermediate, Verified 12/13/24 07:53) RASH seafood Allergy (Intermediate, Verified 12/13/24 07:53) Anaphylaxis Medication List - Last Reconciled 12/13/24 by Luanne Zazueta MD acetaminophen (Tylenol Extra Strength) 500 mg PO Q6H PRN cholecalciferol (vitamin D3) 50 mcg PO DAILY 90 days fluticasone propionate 50 mcg/actuation (Flonase Allergy Relief) 1 spray intranasal DAILY hydroxyzine HCl 25 mg PO BID PRN 30 days ibuprofen 600 mg PO Q6H PRN ketotifen fumarate 0.025%(0.035%) (Allergy Eye (ketotifen)) 1 drp ophthalmic (eye) Q12H 15 days loratadine 10 mg PO DAILY meclizine 25 mg PO TID PRN 90 days omeprazole 20 mg PO BID 90 days tizanidine 4 mg PO BEDTIME PRN 30 days [wrist splint wear it as much as possible throughout the day] Tobacco use date assessed: 12/13/24 Dental Screening Dental Screen Date: 12/13/24 Did you have a dental visit in the last 12 months?: No Did you have a dental problem in the last 6 months where you did not have access to dental care?: No Was dental information given to patient?: Patient has dentist HPI HPI Comments History of Present Illness Details The patient is a 59-year-old female presenting for annual wellness examination. She previously received the tetanus vaccine in 2017; hence, a booster is planned for 2026. Her colonoscopy conducted in 2016 was normal, with the subsequent one scheduled for 2026. Mammography was last completed in 2021, delaying the most current screening until now. The patient's Pap smear taken last year returned negative for HPV, allowing the subsequent screening to take place in 2027, although annual gynecologic exams are maintained. The patient's allergies include penicillin and seafood; hence, she utilizes various anti-allergy medications, such as loratadine and nasal spray, to manage symptoms and reduce allergy-related flare-ups. The patient had surgery for skin cancer removal in 2015 and underwent a sterilization procedure. She reports increasing fatigue attributed to increased work stress. - Tetanus vaccination: Administered in ; repeat due in 2026. - Colonoscopy: Completed in 2016; next s cheduled for 2026; previous result was normal. - Mammography: Last completed in 2021; n ew schedule needed. - Pap smear with HPV testing: Last negat jose in 2022; next recommended in 2027. - Allergy medication management due to k nown allergies. - Discussion of lifestyle impacts, speci fically regarding work-related stress and fatigue. COUNTS INCLUDE 234 BEDS AT THE [facility] Medical History (Updated 12/13/24 @ 08:04 by Luanne Zazueta MD) Fibroid Physical exam Obesity (BMI 35.0-39.9 without comorbidity) Left sided sciatica Impaired glucose tolerance Vertigo Left knee pain Knee pain Surgical History History of esophagogastroduodenoscopy (EGD) H/O colonoscopy Skin cancer History of tubal ligation Family History Father Throat cancer Mother Diabetes Hypertension Daughter In good health Sister In good health Son In good health Brother In good health Social History (Updated 12/13/24 @ 07:58 by Luanne Zazueta MD) Household Members: Spouse Housing: Apartment Are you a primary home health care worker to a significant other at home: No Do you presently have visiting nurse or other home services: No Alcohol intake: current Alcohol intake frequency: holidays/special occasions only Alcohol type: wine Patient Tobacco Use Status: Never used Tobacco e-Cigarette/Vaping Use: Never Used Second Hand Smoke Exposure: No service: No Current occupational status: employed 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 1. Little interest or pleasure in doing things: several days 2. Feeling down, depressed, or hopeless: several days 3. Trouble falling or staying asleep, or sleeping too much: not at all 4. Feeling tired or having little energy: not at all 5. Poor appetite or overeating: not at all 6. Feeling bad about yourself - or that you are a failure or have let yourself or your family down: not at all 7. Trouble concentrating on things, such as reading the newspaper or watching television: not at all 8. Moving or speaking so slowly that other people could have noticed. Or the opposite - being so fidgety or restless that you have been moving around a lot more than usual: not at all 9. Thoughts that you would be better off or of hurting yourself in some way: not at all Total score: 2 Depression Screening Interpretation: Negative Depression Screening Done: Yes 73502 - PHQ-9 Billing: Yes Source: Developed by Drs. Ryan Hart, Meme Amaya, Bennett Singh and colleagues, with an educational syeda from [employer]. Thrive Questionnaire Date Thrive assessed: 12/13/24 I am a: Patient What is your living situation today?: I have a steady place to live Within the past 12 months, did the food you bought not last and you didn't have the money to get more?: Never true Within the past 12 months, did you worry whether your food would run out before you got money to buy more?: Never true Do you have trouble paying for medicines?: No Do you have trouble getting transportation to medical appointments?: No Do you have trouble paying your heating and electricity bill?: No Do you have trouble taking care of your child, family member or friend?: No Do you have trouble with day-to-day activities such as bathing, preparing meals, shopping, managing finances, etc.?: No Are you currently unemployed and looking for a job?: No Are you interested in more education?: No Please select the resources that you would like help with: None Currently or been in a relationship where the following occur: No concerns reported THRIVE Score: 0 AUDIT C Alcohol Use Questionnaire (AUDIT-C) 1. How often do you have a drink containing alcohol?: Monthly or less 2. How many drinks containing alcohol do you have on a typical day when you are drinking?: 1 or 2 3. How often do you have six or more drinks on one occasion?: Never Total Score: 1 Score Reviewed/Action Taken: No RYAN-7 AMB Questionnaire RYAN-7 Date RYAN - 7 assessed: 12/13/24 Feeling nervous, anxious, or on edge: 0 = Not at all Not being able to stop or control worryin = Not at all Worrying too much about different things: 0 = Not at all Trouble relaxin = Not at all Being so restless that it is hard to sit still: 0 = Not at all Becoming easily annoyed or irritable: 0 = Not at all Feeling afraid as if something awful might happen: 0 = Not at all Total RYAN-7 score (0-4 normal; 5-9 mild; 10-14 moderate; 15-21 severe): 0 Source: Developed by Drs. Ryan Hart, Meme Amaya, Bennett Singh and colleagues, with an educational syeda from [employer]. RYAN-7 Assessment Billing RYAN-7 Assessment Tool: RYAN-7 Assessment 65115 Review of Systems Const All systems reviewed & are unremarkable except as noted in HPI and below Card Denies chest pain at rest, Denies chest pain with activity, Denies edema, Denies irregular heart rhythm, Denies claudication, Denies dyspnea, Denies dyspnea on exertion, Denies orthopnea, Denies paroxysmal nocturnal dyspnea and Denies slow heart rate Resp Denies cough, Denies dyspnea and Denies dyspnea on exertion GI Denies abdominal pain, Denies change in bowel habits, Denies excessive flatus, Denies nausea and Denies vomiting Denies urinary incontinence, Denies urinary hesitancy and Denies urinary urgency Musc Reports back pain, Denies atrophy, Denies deformity, Reports arthralgias, Denies limited range of motion and Reports numbness Neuro Reports numbness Physical exam (Primary Care) Vital Signs: Last Vital Signs BP 110/72 12/13/24 07:42 BMI result Body Mass Index 33.2 BMI Assessment/Plan discussion: High BMI High, discussed plan: lifestyle, weight reduction, dietary and physical activity Tobacco/Smoking Status: Tobacco use Status Tobacco use date assessed 12/13/24 12/13/24 07:51 Patient Tobacco Use Status Never used Tobacco 12/13/24 07:41 e-Cigarette/Vaping Use Never Used 12/13/24 07:41 PHQ-9: PHQ-9 Score PHQ-9: Total score 2 12/13/24 07:51 Depression Screening Interpretation: Negative Thrive Assessment: Date of Thrive Assessment Date Thrive assessed 12/13/24 12/13/24 07:51 Currently or been in a relationship where the following occur: No concerns reported [facility] Head: Yes normal to inspection, Yes normocephalic and Yes atraumatic Ears: external ears normal Eyes General: appearance normal, both eyes and all related structures Eyelids: Yes eyelids normal Conjunctivae: conjunctivae normal Neck Neck: Yes normal visual inspection and Yes supple Resp Effort & Inspection: normal respiratory effort Auscultation: clear to auscultation bilaterally Cardio Jugular venous distension: no JVD Rate: regular rate Rhythm: regular rhythm Heart sounds: S1 normal heart sound present and S2 normal heart sound present GI Inspection: Yes normal to inspection Palpation (GI): Soft to palpation and nontender Auscultation: normal bowel sounds Skin General skin exam: no rashes or lesions noted Neuro General: no focal motor deficits Extrem General: Yes full ROM Psych Appearance: grossly normal Coding Level of Care Code Est Pt Level 3 (82786) Est Pt Prev Care 40-64y(82466) Diagnoses Physical exam Z00.00 Hand paresthesia R20.2 Seasonal allergic rhinitis due to pollen J30.1 Back pain M54.9 Additional Codes PHQ-9 - 23224 - PHQ-9 Billing: Yes ([id number]) RYAN-7 Assessment Billing - RYAN-7 Assessment Tool: RYAN-7 Assessment 24516 ([id number]) Time Spent (min) 35 Assessment & Plan Assessment & Plan (1) Physical exam: Code(s): Z00.00 - Encounter for general adult medical examination without abnormal findings Category: Medical (2) Hand paresthesia: Code(s): R20.2 - Paresthesia of skin Category: Medical (3) Seasonal allergic rhinitis due to pollen: Code(s): J30.1 - Allergic rhinitis due to pollen Category: Medical (4) Back pain: Code(s): M54.9 - Dorsalgia, unspecified Category: Medical Plan Acknowledging the negative HPV result in 2022, follow-up Pap smear is planned for 2027, emphasizing the value of yearly gynecologic assessments. Continued allergy management includes utilizing current medications such as antihistamines, with plans for property master evaluation to more accurately address her allergic profile. In response to her complaints about work-induced fatigue, considerations for stress management and workload adjustments were advised. Furthermore, ensuring adherence to regular health screenings, including colonoscopy due in 2026, underlines her well-being as part of the long-term preventative strategy.: Patient was informed and verbally consented to the use of an ambient scribe for clinic note documentation during this visit. A discussion took place about scheduling a mammogram and other preventive screenings due measures, in line with annual health maintenance protocols. The negative Pap test suggests a longer interval for rescreening, with interim gynecologic checks sustained. Allergy management through antihistamines was addressed, and a referral to an property master was recommended for comprehensive allergen evaluation. Additionally, the patient was prompted about making appropriate lifestyle adjustments to counteract stress-related fatigue arising from an increased workload. Continuation of scheduled health check-ups forms central preventive care, anchoring health maintenance in modifying work pressures where possible. Orders: Orders PT Evaluation and Treatment Today M54.9 - Dorsalgia, unspecified NE nerve conduction velocity Today R20.2 - Paresthesia of skin NE electromyogram (EMG) Today R20.2 - Paresthesia of skin Referrals Allergy & Immunology Referral J30.1 - Allergic rhinitis due to pollen Patient Instructions: - Schedule a mammogram soon. - Follow up with the clinical staff pharmacist once a year. - Consult with the property master. - Continue using allergy medication as prescribed. - Consider ways to balance work to help reduce stress. - Prepare for a colonoscopy in 2026. - Monitor health screenings and doctor appointments regularly.
[2024-12-13 07:42] VITALS: BP 110/72; BMI 33.2
== END 2024-12-13 08:03 | disposition home or self-care (01) ==
LOC: HO.HMCH 07:10
PROVIDERS: PCP Internal Medicine; Visit Provider Internal Medicine
DX: Z00.00 Encounter for general adult medical examination without abnormal findings (principal); R20.2 Paresthesia of skin; J30.1 Allergic rhinitis due to pollen; M54.9 Dorsalgia, unspecified

== ENCOUNTER → 2024-12-13 07:10 | Outpatient (BNVA) | payer OTHER, SELFPAY | PROVIDERS: PCP Internal Medicine; Visit Provider Internal Medicine | DX: Z00.00 Encounter for general adult medical examination without abnormal findings (principal); R20.2 Paresthesia of skin; J30.1 Allergic rhinitis due to pollen; M54.9 Dorsalgia, unspecified | CPT/HCPCS: 96127; 99212; 99396 ==

== ENCOUNTER 2025-01-25 15:46 | Outpatient (RCR) | payer OTHER, SELFPAY | END 2025-02-16 13:11 | disposition home or self-care (01) | LOC: HO.PT 15:46 | PROVIDERS: PCP Internal Medicine; Visit Provider Internal Medicine | DX: M54.9 Dorsalgia, unspecified (principal) | CPT/HCPCS: 97110; 97161; 97530; 97535 ==

== ENCOUNTER 2025-02-06 15:36 | Outpatient (REF) | payer OTHER, SELFPAY | END 2025-02-06 15:37 | disposition home or self-care (01) | LOC: HO.MAMMO 15:36 | PROVIDERS: PCP Internal Medicine; Visit Provider Internal Medicine | DX: Z12.31 Encounter for screening mammogram for malignant neoplasm of breast (principal) | CPT/HCPCS: 77063; 77067 ==

== ENCOUNTER → 2025-02-06 16:00 | Outpatient (BNV) | payer OTHER, SELFPAY | PROVIDERS: PCP Internal Medicine; Visit Provider Internal Medicine | DX: Z12.31 Encounter for screening mammogram for malignant neoplasm of breast (principal) | CPT/HCPCS: 77063; 77067 ==

== ENCOUNTER 2025-02-13 16:49 | Outpatient (REF) | payer OTHER, SELFPAY ==
--- NOTE | ~2025-02-13 | XR_ITS ---
EXAMINATION: XR ANKLE, EXAMINATION: XR ANKLE, right CLINICAL INFORMATION: M25.571 - Pain in right ankle and joints of right foot COMPARISON: None available. TECHNIQUE: AP, lateral, and mortise views lower extremity joint, ankle. FINDINGS: Ankle mortise is congruent. There is no widening of the syndesmosis. Talar dome is intact. There is a small plantar enthesophyte and a small medium sized Achilles calcaneal enthesophyte. XR/XR ankle RT 2V IMPRESSION: Nonspecific calcaneal spurs. Electronically signed by: James Christian MD 02/13/2025 05:14 PM EDT
== END 2025-02-13 16:50 | disposition home or self-care (01) ==
LOC: HO.XRAY 16:49
PROVIDERS: PCP Internal Medicine; Visit Provider Internal Medicine
DX: M25.571 Pain in right ankle and joints of right foot (principal)
CPT/HCPCS: 73600

== ENCOUNTER → 2025-02-13 16:56 | Outpatient (BNV) | payer OTHER, SELFPAY | PROVIDERS: PCP Internal Medicine; Visit Provider Radiology Diagnostic Radiology | DX: M77.31 Calcaneal spur, right foot (principal) | CPT/HCPCS: 73600 ==

== ENCOUNTER 2025-03-14 08:41 | Outpatient (REF) | payer OTHER, SELFPAY ==
--- NOTE | 2025-03-14 08:45 | EMG_ITS ---
Bilateral median and ulnar motor and sensory studies were performed and bilateral radial sensory studies were performed. Paraspinal muscles were tested with a needle. Impression: 1. [id number] bilateral median neuropathy across carpal tunnel 2. Mild bilateral ulnar neuropathy across cubital tunnel MTDD
--- OUTSIDE RECORDS SUMMARY | 2025-03-14 08:52 | XMS_ITS | Clinical Summary ---
Author Organization [address] [facility] Address [address] [place] [address] Phone Care Team Providers Care Chemistry Tutor Name Role Phone Luanne Zazueta MD Primary Care Provider [phone] Social History Tobacco Use Types Packs/Day Years Used Date Smoking Tobacco: Never Smokeless Tobacco: Never Comments Unknown Sex and Gender Information Value Date Recorded Sex Assigned at Not on file Legal Sex Female 5:36 AM EST Gender Identity Not on file Sexual Orientation Not on file Obstetrics History Last Filed Vital Signs Vital Sign Reading Time Taken Comments Blood Pressure - - Pulse - - Temperature - - Respiratory Rate - - Oxygen Saturation - - Inhaled Oxygen Concentration - - Weight 95.7 kg (211 lb) 02/21/2022 1:31 PM EDT Height 167.6 cm (5' 6 ) 02/21/2022 1:31 PM EDT Body Mass Index 34.06 02/21/2022 1:31 PM EDT Plan of Treatment Upcoming Encounters Date Type Department Care Team ([facility] Contact Info) Description 04/17/2025 2:30 PM EDT Consult Orthopedic Surgery - [place] [id number] [address] [facility] [address] [place] [phone] Mainor Harris DPM [address] [address] Health Maintenance Due Date Last Done Comments Breast Cancer Screening 1965 Cervical Cancer Screening: P ap Smear 1985 Pneumococcal Vaccine: 50+ Years (1 of 1 - PCV) 2014 Zoster Vaccines (1 of 2) 2014 Colorectal Cancer Screening: Colonoscopy 07/13/2022 HIV Screening 07/13/2022 Hepatitis C Screening 07/13/2022 Social Influencers of Health Screening 07/13/2022 COVID-19 Vaccine (4 - 2023-2 5 season) 2024 10/01/2021, 04/05/2021, 03/08/2021 Depression Screening 08/10/2024 Influenza Vaccine (#1) 2025 , 09/10/2017, 07/26/2015 DTaP,Tdap,and Td Vaccines (2 - Td or Tdap) 08/13/2026 08/13/2016 RSV Immunization Adult Patients (1 - 1-dose 75+ series) 11/22/2039 HIB Vaccines Aged Out No longer eligi ble based on patient's age to complete this topic HPV Vaccines Aged Out No longer eligi ble based on patient's age to complete this topic Hepatitis A Vaccines Aged Out No long er eligible based on patient's age to complete this topic Hepatitis B Vaccines Aged Out No long er eligible based on patient's age to complete this topic IPV Vaccines Aged Out No longer eligi ble based on patient's age to complete this topic MMR Vaccines Aged Out No longer eligi ble based on patient's age to complete this topic Meningococcal ACWY Vaccine Aged Out N o longer eligible based on patient's age to complete this topic Meningococcal B Vaccine Aged Out No l onger eligible based on patient's age to complete this topic RSV Immunization Patients Under 20 months Aged Out No longer eligible b ased on patient's age to complete this topic Varicella Vaccines Aged Out No longer eligible based on patient's age to complete this topic Insurance [facility] [employer] Care Teams Chemistry Tutor Relationship Specialty Start Date End Date Marbin, Luanne R, MD [address] [facility] , [address] [facility] D/B/A: Lucrecia Kyle In Internal Medicine YG Singer PCP - General Internal Medicine 11/13/21
== END 2025-03-14 08:42 | disposition home or self-care (01) ==
LOC: HO.NEURO 08:41
PROVIDERS: PCP Internal Medicine; Visit Provider Internal Medicine
DX: R20.2 Paresthesia of skin (principal)
CPT/HCPCS: 95886; 95911

== ENCOUNTER → 2025-03-14 08:45 | Outpatient (BNV) | payer OTHER, SELFPAY | PROVIDERS: PCP Internal Medicine; Visit Provider Psychiatry & Neurology Neurology | DX: G62.89 Other specified polyneuropathies (principal) | CPT/HCPCS: 95886; 95911 ==

== ENCOUNTER 2025-04-18 14:24 | Emergency (ER) | payer OTHER, SELFPAY ==
--- NOTE | ~2025-04-18 | XR_ITS ---
EXAMINATION: XR THORACIC SPINE CLINICAL INFORMATION: back pain COMPARISON: None available. TECHNIQUE: 3 views of the thoracic spine were obtained. FINDINGS: Mild multilevel disc space narrowing with endplate osteophytes and sclerosis is noted. Vertebral body height and alignment is preserved otherwise. There is mild convex right curvature of the thoracolumbar junction. XR/XR thoracic spine 3V IMPRESSION: Mild degenerative disc disease. Electronically signed by: James Christian MD 04/18/2025 03:54 PM EDT
--- NOTE | ~2025-04-18 | XR_ITS ---
EXAMINATION: XR LUMBOSACRAL SPINE CLINICAL INFORMATION: pain COMPARISON: September 29, 2020 TECHNIQUE: AP and lateral views FINDINGS: Multilevel small marginal osteophyte formation, endplate sclerosis decreased intervertebral disc height throughout the axial skeleton pronounced at L3-4 and L2-3. No acute cortical disruption or gross malalignment. No lytic or blastic lesions.. XR/XR lumbar spine 2-3V IMPRESSION: Multilevel spondylosis without acute fracture or Electronically signed by: Ajay Gastelum MD 04/18/2025 03:53 PM EDT
[2025-04-18 14:33] VITALS: BP 179/90; PULSE 94; RESP 16; TEMP 36.7; O2SAT 99; BMI 33.4
--- NOTE | 2025-04-18 15:11 | ED_ITS ---
HPI - Back Pain/Injury General Chief Complaint: Back Pain/Injury Stated Complaint: Back pain Time Seen by Provider: 04/18/25 19:43 Source: patient Limitations: language barrier History of Present Illness ED Provider: Silke Ramirez PA-C HPI Narrative: 59-year-old female with a history of chronic back pain, GERD, gastric ulcers, vertigo, obesity who presents with mid to lower back pain since this morning. Patient states she did quite a bit of physical activity at work yesterday, she woke this morning with mid to lower back stiffness. The pain does not radiate into the lower extremity. Denies associated weakness of lower extremities, paresthesia, urinary retention or bowel incontinence. Related Data Previous Rx's ?Medication ?Instructions ?Recorded tizanidine 4 mg tablet 4 mg PO BEDTIME PRN muscle 0 02/19/22 spasticity 30 days #30 tabs wrist splint #1 ea 06/26/22 hydroxyzine HCl 25 mg tablet 25 mg PO BID PRN itching 30 days 12/01/22 #60 tabs loratadine 10 mg tablet 10 mg PO DAILY #30 tabs /09/02 meclizine 25 mg tablet 25 mg PO TID PRN dizziness 9 0 days 03/26/24 #270 tabs omeprazole 20 mg capsule,delayed 20 mg PO BID 90 days #180 caps 04/19/24 release acetaminophen 500 mg tablet 500 mg PO Q6H PRN fever or pain 12/14/24 (Tylenol Extra Strength) #30 tabs cholecalciferol (vitamin D3) 50 50 mcg PO DAILY 90 day s #90 caps 12/14/24 mcg (2,000 unit) capsule fluticasone propionate 50 1 spray intranasal DAILY #16 grams 12/14/24 mcg/actuation nasal spray,suspension (Flonase Allergy Relief) ibuprofen 600 mg tablet 600 mg PO Q6H PRN pain #30 t abs 12/14/24 ketotifen fumarate 0.025 % (0.035 1 drp ophthalmic (ey e) Q12H 15 12/14/24 %) eye drops (Allergy Eye days #5 mL (ketotifen)) ketorolac 10 mg tablet 10 mg PO Q6H PRN pain #20 ta bs 04/18/25 methylprednisolone 4 mg tablets in 4 mg PO QAM #21 ea 04/18/25 a dose pack (Medrol (Jose)) Allergies Allergy/AdvReac Type Severity Reaction Status Date / Time Penicillins (PENICILLINS) Allergy Intermediate RASH Verified 04/18/25 14:36 seafood Allergy Intermediate Anaphylaxis Verified 04/18/25 14:36 Review of Systems Review of Systems: Yes all other systems are reviewed and are negative Constitutional: Constitutional: Denies fatigue and Denies fever(s) Cardiovascular: Cardiovascular: Denies chest pain and Denies dyspnea Respiratory: Respiratory: Denies cough and Denies dyspnea Gastrointestinal: Gastrointestinal: Denies abdominal pain, Denies nausea and Denies vomiting Musculoskeletal: Musculoskeletal: Reports back pain, Denies muscle weakness, Denies numbness, Denies radiating pain into limb, Reports stiffness and Denies tingling Neurologic: Denies numbness and Denies tingling Endocrine: Endocrine: Denies fatigue PMFSH Past Medical History Attestation statement: The following information was validated with the patient. Medical History Fibroid Physical exam Obesity (BMI 35.0-39.9 without comorbidity) Left sided sciatica Impaired glucose tolerance Vertigo Left knee pain Knee pain Surgical History History of esophagogastroduodenoscopy (EGD) H/O colonoscopy Skin cancer History of tubal ligation Family History Family History Father Throat cancer Mother Diabetes Hypertension Daughter In good health Sister In good health Son In good health Brother In good health Social History Social History (Updated 12/13/24 @ 07:58 by Luanne Zazueta MD) Household Members: Spouse Housing: Apartment Are you a primary live in caregiver to a significant other at home: No Do you presently have visiting nurse or other home services: No Alcohol intake: current Alcohol intake frequency: holidays/special occasions only Alcohol type: wine Patient Tobacco Use Status: Never used Tobacco e-Cigarette/Vaping Use: Never Used Second Hand Smoke Exposure: No Do you have a plan to hurt others: No Plan service: No Current occupational status: employed 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 [employer] Current occupational exposures/hazards: No Cognitive needs: No Hearing needs: No Vision needs: Yes Physical Exam Vital Signs: Vital Signs: Last Vital Signs Temp 97.5 F 04/18/25 19:46 Pulse 76 04/18/25 19:46 Resp 17 04/18/25 19:46 BP 131/91 H 04/18/25 19:46 Pulse Ox 98 04/18/25 19:46 O2 Del Method Room Air 04/18/25 19:46 BMI result Body Mass Index 33.4 Const: Other: Alert well-appearing Orientation/consciousness: patient oriented x3 Resp: Effort & Inspection: normal respiratory effort Cardio: Other: Normal peripheral perfusion Skin: Other: Warm dry no rash Neuro: General: patient oriented x3, gait normal, no focal motor deficits and CN's II-XI intact bilaterally Extrem: Other: Strength 5/5 bilateral lower extremities Psych: Other: Cooperative Course Course Course Narrative: This is an RME: Additional HPI, ROS, PE not included below will be deferred to primary provider. RME assessment and note performed by: Joanna Grace PA-C This is a 59-year-old female who presents emergency department with complaints of back pain since 10:00 a.m. this morning. Patient states that she developed mid low back pain at 10:00 a.m. this morning. Denies any urinary or bowel retention or incontinence. No chest pain or shortness for breath. Blood pressure mildly elevated at 170 9/90, all other vital signs within normal limits. She has a history of back problems in the past. Plan: X-rays Medications Administered Discontinued Medications Generic Name Dose Route Start Last Admin Trade Name Freq PRN Reason Stop Dose Admin Ketorolac Tromethamine 15 mg 04/18/25 20:12 04/18/25 20:17 Ketorolac Tromethamine 15 Mg/Ml Vial IM 04/18/25 20:13 15 mg ONCE ONE Administration Prednisone 10 mg 04/18/25 20:12 04/18/25 20:17 Prednisone 10 Mg Tablet PO 04/18/25 20:13 10 mg ONCE ONE Administration Medical Decision Making Medical Decision Making [facility] Narrative: 59 -year-old female with a history of chronic back pain, GERD, gastric ulcers, vertigo, obesity who presents with mid to lower back pain since this morning. Patient states she did quite a bit of physical activity at work yesterday, she woke this morning with mid to lower back stiffness. The pain does not radiate into the lower extremity. Denies associated weakness of lower extremities, paresthesia, urinary retention or bowel incontinence. Problem: Chronic back pain History: Per patient I have considered the following differential diagnoses: Compression fracture, musculoskeletal strain, lumbar radiculopathy, cauda equina Plan: Patient here with musculoskeletal strain, she was found to have significant arthritic changes. We will treat accordingly. To note she is not having radicular symptoms, she is not having red flag signs symptoms concerning for cord compression. I have independently reviewed the following tests: X-ray thoracic spine:INDINGS: Mild multilevel disc space narrowing with endplate osteophytes and sclerosis is noted. Vertebral body height and alignment is preserved otherwise. There is mild convex right curvature of the thoracolumbar junction. XR/XR thoracic spine 3V IMPRESSION: Mild degenerative disc disease. X-ray lumbar spine:INDINGS: Multilevel small marginal osteophyte formation, endplate sclerosis decreased intervertebral disc height throughout the axial skeleton pronounced at L3-4 and L2-3. No acute cortical disruption or gross malalignment. No lytic or blastic lesions.. XR/XR lumbar spine 2-3V IMPRESSION: Multilevel spondylosis without acute fracture or Differential Diagnosis Differential Diagnoses: The differential diagnosis associated with the presentation includes See medical decision-making Admission/Observation Consideration of admission/observation: Escalation of care including admission/observation considered Not applicable Radiology Impression Discussion of test interpretation with radiology: I have reviewed the radiologist's reading. Discharge Plan Discharge Clinical Impression: Osteoarthritis, Back strain Patient Disposition: Home, Self-Care Instructions: Osteoarthritis (ED), Back Pain (ED), Lower Back Exercises (ED) Additional Instructions: The x-rays revealed that you have considerable arthritic changes of both the thoracic and lumbar spine. See home care instructions. Take the Medrol Dosepak as directed this is an anti-inflammatory take it in the morning with food. Take the ketorolac as directed, take it with food, this is a 2nd anti-inflammatory. Follow up with your primary care provider as needed. Prescriptions: New ketorolac 10 mg tablet 10 mg PO Q6H PRN (Reason: pain) Qty: 20 0RF Rx Instructions: maximum total duration of 5 days from all oral, intranasal, or parenteral formulations. Patient received an intramuscular dose of Toradol here in the emergency room methylprednisolone [Medrol (Jose)] 4 mg tablets,dose pack 4 mg PO QAM Qty: 21 0RF Rx Instructions: Take per package instructions No Action hydroxyzine HCl 25 mg tablet 25 mg PO BID PRN (Reason: itching) 30 Days Qty: 60 0RF meclizine 25 mg tablet 25 mg PO TID PRN (Reason: dizziness) 90 Days Qty: 270 3RF omeprazole 20 mg capsule,delayed release(DR/EC) 20 mg PO BID 90 Days Qty: 180 1RF cholecalciferol (vitamin D3) 50 mcg (2,000 unit) capsule 50 mcg PO DAILY 90 Days Qty: 90 3RF ibuprofen 600 mg tablet 600 mg PO Q6H PRN (Reason: pain) Qty: 30 3RF ketotifen fumarate [Allergy Eye (ketotifen)] 0.025 % (0.035 %) drops 1 drp ophthalmic (eye) Q12H 15 Days Qty: 5 3RF acetaminophen [Tylenol Extra Strength] 500 mg tablet 500 mg PO Q6H PRN (Reason: fever or pain) Qty: 30 3RF fluticasone propionate [Flonase Allergy Relief] 50 mcg/actuation spray,suspension 1 spray intranasal DAILY Qty: 16 3RF Rx Instructions: administer into each nostril loratadine 10 mg tablet 10 mg PO DAILY Qty: 30 2RF tizanidine 4 mg tablet 4 mg PO BEDTIME PRN (Reason: muscle spasticity) 30 Days Qty: 30 0RF (DME) wrist splint See Rx Instructions .Route .MEDSUPPLY Qty: 1 0RF Rx Instructions: wear it as much as possible throughout the day Stand Alone Forms: Work/School Release Print Language: Macedonian
[2025-04-18 19:46] VITALS: BP 131/91; PULSE 76; RESP 17; TEMP 36.4; O2SAT 98
[2025-04-18 20:28] VITALS: BP 131/91; PULSE 76; RESP 17; TEMP 36.4; O2SAT 98
== END 2025-04-18 20:34 | disposition home or self-care (01) ==
LOC: HO.ED 20:30
PROVIDERS: Emergency Provider Emergency Medicine Emergency Medical Services; PCP Internal Medicine
DX: S39.012A Strain of muscle, fascia and tendon of lower back, initial encounter (principal); M54.6 Pain in thoracic spine; M15.9 Polyosteoarthritis, unspecified; M47.9 Spondylosis, unspecified; X58.XXXA Exposure to other specified factors, initial encounter; Y93.9 Activity, unspecified; Y92.9 Unspecified place or not applicable; Y99.8 Other external cause status
CPT/HCPCS: 72072; 72100; 96372; 99283; 99284; J1885

== ENCOUNTER → 2025-04-18 15:11 | Outpatient (BNV) | payer OTHER, SELFPAY | PROVIDERS: PCP Internal Medicine; Visit Provider Radiology Diagnostic Radiology | DX: M47.816 Spondylosis without myelopathy or radiculopathy, lumbar region (principal); M54.6 Pain in thoracic spine | CPT/HCPCS: 72072; 72100 ==

== ENCOUNTER 2025-04-21 09:22 | Outpatient (AMB) | payer OTHER, SELFPAY ==
--- NOTE | 2025-04-21 09:33 | MHC.PC.OV ---
Vital Signs 04/21/25 09:36 04/21/25 10:09 Height 5 ft 6 in Weight 217 lb BMI 35.0 BP 150/70 H 136/82 Blood Pressure Location Lt brachial Lt brachial Position Sitting Sitting Pulse 87 Pulse Source Pulse Oximeter Pulse Oximetry (%) 98 Oxygen Delivery Method Room Air Intake [place] [facility] [place] Software Quality Assurance Engineer Required: Yes Software Quality Assurance Engineer Language: Djib[place]ian Accompanied by: Self / Same As Patient Allergies Penicillins (PENICILLINS) Allergy (Intermediate, Verified 04/21/25 09:52) RASH seafood Allergy (Intermediate, Verified 04/21/25 09:52) Anaphylaxis Medication List - Last Reconciled 04/21/25 by Rose Mary Parks PA-C acetaminophen (Tylenol Extra Strength) 500 mg PO Q6H PRN cholecalciferol (vitamin D3) 50 mcg PO DAILY 90 days fluticasone propionate 50 mcg/actuation (Flonase Allergy Relief) 1 spray intranasal DAILY hydroxyzine HCl 25 mg PO BID PRN 30 days ibuprofen 600 mg PO Q6H PRN ketorolac 10 mg PO Q6H PRN ketotifen fumarate 0.025%(0.035%) (Allergy Eye (ketotifen)) 1 drp ophthalmic (eye) Q12H 15 days loratadine 10 mg PO DAILY meclizine 25 mg PO TID PRN 90 days methylprednisolone (Medrol (Jose)) 4 mg PO QAM omeprazole 20 mg PO BID 90 days tizanidine 4 mg PO BEDTIME PRN 30 days [wrist splint wear it as much as possible throughout the day] Tobacco use date assessed: 12/13/24 Dental Screening Dental Screen Date: 04/21/25 Did you have a dental visit in the last 12 months?: Yes Did you have a dental problem in the last 6 months where you did not have access to dental care?: No Was dental information given to patient?: Patient has dentist [place] [facility] [place] HPI Details 59-year-old female with past medical history of vertigo, impaired glucose tolerance,, BPPV, GERD last seen 12/[address] Tyson coming in for hospital discharge follow up. In review of the notes, patient was seen [place] [facility]18/2025 for back pain x-ray lumbar and thoracic spine showing mild degenerative disc disease with multilevel spondylosis she was given Medrol Dosepak and anti-inflammatory and discharged home. computer aided design drafter [employer] [id number] was used for the duration of this visit. The patient reported experiencing back pain after performing heavy lifting at work on Thursday. The pain was attributed to arthritis, and the patient was given ketorolac and steroids, which have been effective. 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 The patient has been advised to avoid prolonged sitting. While her pain has been improving she continues to have significant pain with prolonged sitting. [facility] Medical History Fibroid Physical exam Obesity (BMI 35.0-39.9 without comorbidity) Left sided sciatica Impaired glucose tolerance Vertigo Left knee pain Knee pain Surgical History History of esophagogastroduodenoscopy (EGD) H/O colonoscopy Skin cancer History of tubal ligation Family History Father Throat cancer Mother Diabetes Hypertension Daughter In good health Sister In good health Son In good health Brother In good health Social History Household Members: Spouse Housing: Apartment Are you a primary health care marketing manager to a significant other at home: No Do you presently have visiting nurse or other home services: No Alcohol intake: current Alcohol intake frequency: holidays/special occasions only Alcohol type: wine Patient Tobacco Use Status: Never used Tobacco e-Cigarette/Vaping Use: Never Used Second Hand Smoke Exposure: No service: No Current occupational status: employed 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 1. Little interest or pleasure in doing things: not at all 2. Feeling down, depressed, or hopeless: not at all 3. Trouble falling or staying asleep, or sleeping too much: not at all 4. Feeling tired or having little energy: not at all 5. Poor appetite or overeating: not at all 6. Feeling bad about yourself - or that you are a failure or have let yourself or your family down: not at all 7. Trouble concentrating on things, such as reading the newspaper or watching television: not at all 8. Moving or speaking so slowly that other people could have noticed. Or the opposite - being so fidgety or restless that you have been moving around a lot more than usual: several days 9. Thoughts that you would be better off or of hurting yourself in some way: not at all Total score: 1 Source: Developed by Drs. Ryan Hart, Meme Amaya, Bennett Singh and colleagues, with an educational syeda from [employer]. Thrive Questionnaire Date Thrive assessed: 12/13/24 I am a: Patient What is your living situation today?: I have a steady place to live Within the past 12 months, did the food you bought not last and you didn't have the money to get more?: Never true Within the past 12 months, did you worry whether your food would run out before you got money to buy more?: Never true Do you have trouble paying for medicines?: No Do you have trouble getting transportation to medical appointments?: No Do you have trouble paying your heating and electricity bill?: No Do you have trouble taking care of your child, family member or friend?: No Do you have trouble with day-to-day activities such as bathing, preparing meals, shopping, managing finances, etc.?: No Are you currently unemployed and looking for a job?: No Are you interested in more education?: I choose not to answer this question Please select the resources that you would like help with: None Currently or been in a relationship where the following occur: I choose not to answer THRIVE Score: 0 AUDIT C Alcohol Use Questionnaire (AUDIT-C) 1. How often do you have a drink containing alcohol?: Never Total Score: 0 RYAN-7 AMB Questionnaire RYAN-7 Date RYAN - 7 assessed: 12/13/24 Feeling nervous, anxious, or on edge: 0 = Not at all Not being able to stop or control worryin = Not at all Worrying too much about different things: 0 = Not at all Trouble relaxin = Not at all Being so restless that it is hard to sit still: 1 = Several days Becoming easily annoyed or irritable: 0 = Not at all Feeling afraid as if something awful might happen: 0 = Not at all Total RYAN-7 score (0-4 normal; 5-9 mild; 10-14 moderate; 15-21 severe): 1 Source: Developed by Drs. Ryan Hart, Meme Amaya, Bennett Singh and colleagues, with an educational syeda from [facility]. Review of Systems Const Denies body aches, Denies chills, Denies fever(s) and Denies poor appetite Eyes Reports no additional complaints Card Denies chest pain, Denies lightheadedness and Denies dyspnea Resp Denies dyspnea GI Denies fecal incontinence, Denies nausea and Denies vomiting Reports no additional complaints Musc Reports as per HPI, Reports abnormal gait and Reports back pain Skin/Breast Reports system reviewed and no additional complaints, except as documented Neuro Reports abnormal gait Psych Reports no additional complaints Physical exam (Primary Care) Vital Signs: Last Vital Signs Pulse 87 04/21/25 09:36 BP 136/82 04/21/25 10:09 Pulse Ox 98 04/21/25 09:36 Oxygen Delivery Method Room Air 04/21/25 09:36 BMI result Body Mass Index 35.0 Tobacco/Smoking Status: Tobacco use Status Tobacco use date assessed 12/13/24 04/21/25 09:43 Patient Tobacco Use Status Never used Tobacco 04/21/25 09:43 e-Cigarette/Vaping Use Never Used 04/21/25 09:43 PHQ-9: PHQ-9 Score PHQ-9: Total score 1 04/21/25 09:52 Thrive Assessment: Date of Thrive Assessment Date Thrive assessed 12/13/24 04/21/25 09:43 Currently or been in a relationship where the following occur: I choose not to answer Const General: cooperative, healthy appearing, comfortable and no acute distress Orientation/consciousness: patient oriented x3 HENMT Head: Yes normocephalic Ears: hearing grossly normal bilaterally General nose exam: Normal external nose present Eyes General: appearance normal, both eyes and all related structures Conjunctivae: conjunctivae normal Neck Neck: Yes full ROM and Yes no lymphadenopathy Resp Effort & Inspection: normal respiratory effort Auscultation: clear to auscultation bilaterally, no crackles, no rales, no rhonchi and no wheezes Cardio Rate: regular rate Rhythm: regular rhythm Back/Spine/Pelvis Other: tenderness to lumbar spine Skin General skin exam: no rashes or lesions noted Neuro General: patient oriented x3 Gait exam (Neuro): Normal gait present Extrem General: Yes normal to inspection, Yes full ROM and No edema Psych Affect: normal affect Attitude: cooperative Insight: Good insight present (Psych) Judgement: Good judgement present (Psych) Coding Level of Care Code Est Pt Level 3 (93432) Diagnoses Back pain M54.9 Assessment & Plan Assessment & Plan (1) Back pain: Code(s): M54.9 - Dorsalgia, unspecified Category: Medical Plan: The patient was advised to avoid prolonged sitting. She was given an excuse note until Thursday after the completion of her steroid dose pack. The patient is currently on a steroid pack and ketorolac, which have been effective in managing the pain. If pain persists, physical therapy or muscle relaxants may be considered. Plan This note was constructed using voice recognition software. While every effort has been made to ensure accuracy and property specialist, still areas may have been included sometimes these areas may affect the content or meeting of the given symptoms. Total time spent caring for the patient today was 20 minutes. This includes time spent before the visit reviewing the chart, time spent during the visit, and time spent after the visit and documentation. Patient was informed and verbally consented to the use of an ambient scribe for clinic note documentation during this visit. Medications: Discontinued tizanidine Discontinued Reason: Patient no longer taking 4 mg PO BEDTIME 30 days PRN 30 tabs 0RF muscle spasticity
[2025-04-21 09:36] VITALS: BP 150/70; PULSE 87; O2SAT 98; BMI 35.0
[2025-04-21 10:09] VITALS: BP 136/82
== END 2025-04-21 10:24 | disposition home or self-care (01) ==
LOC: HO.HMCH 09:23
PROVIDERS: PCP Internal Medicine
DX: M54.9 Dorsalgia, unspecified (principal)

== ENCOUNTER → 2025-04-21 09:22 | Outpatient (BNVA) | payer OTHER, SELFPAY | PROVIDERS: PCP Internal Medicine | DX: K21.9 Gastro-esophageal reflux disease without esophagitis (principal); M54.9 Dorsalgia, unspecified | CPT/HCPCS: 99212 ==

== ENCOUNTER 2025-05-09 14:32 | Outpatient (AMB) | payer OTHER, SELFPAY ==
[2025-05-09 15:05] VITALS: BMI 35.0
--- NOTE | 2025-05-09 15:05 | MHC.OFFVIS ---
Vital Signs 05/09/25 15:05 Height 5 ft 6 in Weight 217 lb BMI 35.0 Intake Visit Reasons: CHARRER-B/L hand EMG review Intake Note: Amy is a 59 year old right hand dominant female who presents today as a New Patient for evaluation of Bilateral Hand Numbness & Tingling. Patient complains of right index finger numbness and tingling radiating to the elbow with associated sleep disturbance. 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 Denies finger locking. Has tried braces and Occupational Therapy without relief Denies any prior injuries or surgeries to the hands.? Cook Camp Required: Yes Cook Camp Language: Business Support Coordinator Services: Cook Camp Present Cook Camp Name: [id number] Allergies Penicillins (PENICILLINS) Allergy (Intermediate, Verified 05/09/25 15:06) RASH seafood Allergy (Intermediate, Verified 05/09/25 15:06) Anaphylaxis HPI HPI CHARRER-B/L hand EMG review: Details: Amy is a 59 year old right hand dominant female who presents today as a New Patient for evaluation of Bilateral Hand Numbness & Tingling. Patient complains of right index finger numbness and tingling radiating to the elbow with associated sleep disturbance. 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 Denies finger locking. Has tried braces and Occupational Therapy without relief Denies any prior injuries or surgeries to the hands.? [facility] Medical History Fibroid Physical exam Obesity (BMI 35.0-39.9 without comorbidity) Left sided sciatica Impaired glucose tolerance Vertigo Left knee pain Knee pain Surgical History History of esophagogastroduodenoscopy (EGD) H/O colonoscopy Skin cancer History of tubal ligation Family History Father Throat cancer Mother Diabetes Hypertension Daughter In good health Sister In good health Son In good health Brother In good health Social History (Updated 05/09/25 @ 15:08 by PAUL Parks) Household Members: Spouse Housing: Apartment Are you a primary critical care transport nurse to a significant other at home: No Do you presently have visiting nurse or other home services: No Alcohol intake: current Alcohol intake frequency: holidays/special occasions only Alcohol type: wine Patient Tobacco Use Status: Never used Tobacco e-Cigarette/Vaping Use: Never Used Second Hand Smoke Exposure: No service: No Current occupational status: employed 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 Good APB muscle firing and good finger cross. Vascular: Capillary refill brisk. ROM: Patient can make a fist and extend all their digits. Skin: No lacerations or abrasions noted. General: No ecchymosis. No erythema or evidence of infection. Results Reviewed Results Reviewed: Impression: 1. [id number] bilateral median neuropathy across carpal tunnel 2. Mild bilateral ulnar neuropathy across cubital tunnel Dictated By: Jerry Hall MD Assessment & Plan Assessment & Plan (1) Bilateral carpal tunnel syndrome: Code(s): G56.03 - Carpal tunnel syndrome, bilateral upper limbs Category: Medical (2) Cubital tunnel syndrome, bilateral: Code(s): G56.23 - Lesion of ulnar nerve, bilateral upper limbs Category: Medical Plan 1. Right cubital tunnel syndrome 2. Right carpal tunnel syndrome Symptoms constant, daily, worse at night I educated the patient about the condition. I discussed both operative and nonoperative treatment options. The patient would like to proceed with surgery. The risks and benefits of operative treatment were discussed with the patient and the patient wishes to proceed with surgery. These risks include, but are not limited to, risk of damage to blood vessels, nerves, tendons, infection, recurrence, incomplete relief of preoperative symptoms, persistent pain, possible need for further surgery, and the risks associated with regional blocks and/or anesthesia. Plan is to take the patient to the operating room at some point in the next few weeks for the following procedures: 1. Right cubital tunnel release under general 2. Right carpal tunnel release under general All of the preoperative paperwork including the consent was discussed today. All of the patient's questions were answered in the clinic today. The patient understands that they will be in contact with our ophthalmic surgical assistant to discuss scheduling their procedure. Patient denies diabetes, blood thinners, asthma, heart issues, lung issues, kidney issues, or current smoking. Coding Level of Care Code New Pt Level 4 (04613) Diagnoses Bilateral carpal tunnel syndrome G56.03 Cubital tunnel syndrome, bilateral G56.23
== END 2025-05-09 15:30 | disposition home or self-care (01) ==
LOC: HO.HOS 14:33
PROVIDERS: PCP Internal Medicine
DX: G56.03 Carpal tunnel syndrome, bilateral upper limbs (principal); G56.23 Lesion of ulnar nerve, bilateral upper limbs
CPT/HCPCS: 99204

== ENCOUNTER → 2025-05-09 14:32 | Outpatient (BNVA) | payer OTHER, SELFPAY | PROVIDERS: PCP Internal Medicine | DX: Z71.2 Person consulting for explanation of examination or test findings (principal); G56.03 Carpal tunnel syndrome, bilateral upper limbs; G56.23 Lesion of ulnar nerve, bilateral upper limbs | CPT/HCPCS: 99202 ==

== ENCOUNTER 2025-07-25 09:47 | Outpatient (AMB) | payer OTHER, SELFPAY ==
--- NOTE | 2025-07-25 09:55 | A.OFFVIS_ITS ---
Vital Signs 07/25/25 10:04 Height 5 ft 6 in Weight 217 lb BMI 35.0 Intake Visit Reasons: Preop RT cubital/CTR 07/27/25 AR Intake Note: Amy is a 59 year old right hand dominant female who presents today pre- operatively for discussion of their Right Cubital and Carpal Tunnel Release scheduled for 07/27/[address] Armstrong. Consents signed in office today. Digital Forensic Analyst Required: Yes Digital Forensic Analyst Language: Digital Sales Director Name: [id number] Allergies Penicillins (PENICILLINS) Allergy (Intermediate, Verified 07/25/25 10:04) RASH seafood Allergy (Intermediate, Verified 07/25/25 10:04) Anaphylaxis HPI HPI Preop RT cubital/CTR 07/27/25 AR: Details: Amy is a 59 year old right hand dominant female who presents today pre- operatively for discussion of their Right Cubital and Carpal Tunnel Release scheduled for 07/27/[address] Armstrong. Patient reports that the only change in her medications or medical history since previous evaluation is that she is getting shots for her allergies. Consents signed in office today. [facility] Medical History Fibroid Physical exam Obesity (BMI 35.0-39.9 without comorbidity) Left sided sciatica Impaired glucose tolerance Vertigo Left knee pain Knee pain Surgical History History of esophagogastroduodenoscopy (EGD) H/O colonoscopy Skin cancer History of tubal ligation Family History Father Throat cancer Mother Diabetes Hypertension Daughter In good health Sister In good health Son In good health Brother In good health Social History (Updated 05/09/25 @ 15:08 by PAUL Parks) Household Members: Spouse Housing: Apartment Are you a primary patient care representative to a significant other at home: No Do you presently have visiting nurse or other home services: No Alcohol intake: current Alcohol intake frequency: holidays/special occasions only Alcohol type: wine Patient Tobacco Use Status: Never used Tobacco e-Cigarette/Vaping Use: Never Used Second Hand Smoke Exposure: No service: No Current occupational status: employed 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 Good APB muscle firing and good finger cross. Vascular: Capillary refill brisk. ROM: Patient can make a fist and extend all their digits. Skin: No lacerations or abrasions noted. General: No ecchymosis. No erythema or evidence of infection. Assessment & Plan Assessment & Plan (1) Bilateral carpal tunnel syndrome: Code(s): G56.03 - Carpal tunnel syndrome, bilateral upper limbs Category: Medical (2) Cubital tunnel syndrome, bilateral: Code(s): G56.23 - Lesion of ulnar nerve, bilateral upper limbs Category: Medical Plan 1. Right cubital tunnel syndrome 2. Right carpal tunnel syndrome Symptoms constant, daily, worse at night I educated the patient about the condition. I discussed both operative and nonoperative treatment options. The patient would like to proceed with surgery. The risks and benefits of operative treatment were discussed with the patient and the patient wishes to proceed with surgery. These risks include, but are not limited to, risk of damage to blood vessels, nerves, tendons, infection, recurrence, incomplete relief of preoperative symptoms, persistent pain, possible need for further surgery, and the risks associated with regional blocks and/or anesthesia. Plan is to take the patient to the operating room at some point in the next few weeks for the following procedures: 1. Right cubital tunnel release under general 2. Right carpal tunnel release under general All of the preoperative paperwork including the consent was discussed today. All of the patient's questions were answered in the clinic today. The patient understands that they will be in contact with our surgical services assistant to discuss scheduling their procedure. Patient denies diabetes, blood thinners, asthma, heart issues, lung issues, kidney issues, or current smoking. Coding Level of Care Code Est Pt Level 4 (39975) Diagnoses Bilateral carpal tunnel syndrome G56.03 Cubital tunnel syndrome, bilateral G56.23
[2025-07-25 10:04] VITALS: BMI 35.0
== END 2025-07-25 10:26 | disposition home or self-care (01) ==
LOC: HO.HOS 09:47
PROVIDERS: PCP Internal Medicine
DX: G56.03 Carpal tunnel syndrome, bilateral upper limbs (principal); G56.23 Lesion of ulnar nerve, bilateral upper limbs
CPT/HCPCS: 99024

== ENCOUNTER → 2025-07-25 09:47 | Outpatient (BNVA) | payer OTHER, SELFPAY | PROVIDERS: PCP Internal Medicine | DX: Z01.818 Encounter for other preprocedural examination (principal); G56.03 Carpal tunnel syndrome, bilateral upper limbs; G56.23 Lesion of ulnar nerve, bilateral upper limbs | CPT/HCPCS: 99212 ==

== ENCOUNTER 2025-07-27 07:47 | Day surgery (SDC) | payer OTHER, SELFPAY ==
--- NOTE | 2025-07-24 13:20 | P.CONAN_ITS ---
Documented by User: Danette Bustamante NP 07/24/25 13:21 HPI - Anesthesia Eval Consult details Narrative: 59 yr old female for right cubital tunnel, carpal tunnel release GERD: on PPI PMFSH Active Problems Active Problems: All Active Problems (Updated 05/09/25 @ 20:12 by DEVONTE Hu) Cubital tunnel syndrome, bilateral (Acute) Bilateral carpal tunnel syndrome (Acute) Calcaneal spur (Acute) Right ankle pain (Acute) Hand paresthesia (Acute) Seasonal allergic rhinitis due to pollen (Acute) Back pain (Acute) Multiple gastric ulcers (Acute) GERD (gastroesophageal reflux disease) (Acute) Fibroid (Acute) Achalasia (Acute) Pelvic pain (Acute) Encounter for annual routine gynecological examination (Acute) Dysphagia (Acute) Screen for colon cancer (Acute) Physical exam (Acute) Carpal tunnel syndrome, right (Acute) CRP elevated (Acute) Polyarthralgia (Acute) BPPV (benign paroxysmal positional vertigo) (Acute) Hypovitaminosis D (Acute) Cervical radiculitis (Acute) Strain of cervical portion of left trapezius muscle (Acute) Facet arthritis of cervical region (Acute) Allergic dermatitis (Acute) Neck pain (Acute) Physical exam (Acute) Obesity (BMI 35.0-39.9 without comorbidity) (Acute) Left sided sciatica (Acute) Impaired glucose tolerance (Acute) Vertigo (Acute) Left knee pain (Acute) Knee pain (Acute) Past Medical History Medical History Fibroid Physical exam Obesity (BMI 35.0-39.9 without comorbidity) Left sided sciatica Impaired glucose tolerance Vertigo Left knee pain Knee pain Family History Family History Father Throat cancer Mother Diabetes Hypertension Daughter In good health Sister In good health Son In good health Brother In good health Family history of problems with anesthesia: No Surgical History Surgical History History of esophagogastroduodenoscopy (EGD) H/O colonoscopy Skin cancer History of tubal ligation History of Problems with Anesthesia: No Social History Social History Household Members: Spouse Housing: Apartment Are you a primary memory care program director to a significant other at home: No Do you presently have visiting nurse or other home services: No Alcohol intake: current Alcohol intake frequency: holidays/special occasions only Alcohol type: wine Patient Tobacco Use Status: Never used Tobacco e-Cigarette/Vaping Use: Never Used Second Hand Smoke Exposure: No Use of substances other than those prescribed or required for medical reasons: No Are you DNR?: No Advance Directives: No Advance Directives Information Provided: Yes service: No Current occupational status: employed 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[employer], [employer] Current occupational exposures/hazards: No Cognitive needs: No Hearing needs: No Vision needs: Yes Meds Allergies Allergy/AdvReac Type Severity Reaction Status Date / Time Penicillins (PENICILLINS) Allergy Intermediate RASH Verified 07/27/25 07:59 seafood Allergy Intermediate Anaphylaxis Verified 07/27/25 07:59 Home Medications ?Medication ?Instructions ?Recorded ?Confirmed ?Last Taken ?Type omeprazole 20 mg capsule,delayed 20 mg PO BID PRN Acid Reflux 07/27/25 07/27/25 Unknown History release Assessment and Plan Final Anesthetic Review Family History of Problems with Anesthesia: No History of Problems with Anesthesia: No Documented by User: Mac Cabral MD 07/27/25 08:40 [facility] Past Medical History Medical History Fibroid Physical exam Obesity (BMI 35.0-39.9 without comorbidity) Left sided sciatica Impaired glucose tolerance Vertigo Left knee pain Knee pain Cognitive capacity: normal Functional capacity: independent ambulation Family History Family History Father Throat cancer Mother Diabetes Hypertension Daughter In good health Sister In good health Son In good health Brother In good health Surgical History Surgical History History of esophagogastroduodenoscopy (EGD) H/O colonoscopy Skin cancer History of tubal ligation Social History Social History Household Members: Spouse Housing: Apartment Are you a primary memory care program director to a significant other at home: No Do you presently have visiting nurse or other home services: No Alcohol intake: current Alcohol intake frequency: holidays/special occasions only Alcohol type: wine Patient Tobacco Use Status: Never used Tobacco e-Cigarette/Vaping Use: Never Used Second Hand Smoke Exposure: No Use of substances other than those prescribed or required for medical reasons: No Are you DNR?: No Advance Directives: No Advance Directives Information Provided: Yes service: No Current occupational status: employed 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, 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 Current occupational exposures/hazards: No Cognitive needs: No Hearing needs: No Vision needs: Yes Meds Allergies Allergy/AdvReac Type Severity Reaction Status Date / Time Penicillins (PENICILLINS) Allergy Intermediate RASH Verified 07/27/25 07:59 seafood Allergy Intermediate Anaphylaxis Verified 07/27/25 07:59 Home Medications ?Medication ?Instructions ?Recorded ?Confirmed ?Last Taken ?Type omeprazole 20 mg capsule,delayed 20 mg PO BID PRN Acid Reflux 07/27/25 07/27/25 Unknown History release Exam Exam Date and Time: Airway TM Dist: >3cm Heart: normal Lungs: cta Other: none Assessment and Plan Final Anesthetic Review NPO: Yes ASA Class: II Final Preanesthetic Review: No Changes in Pt Med Stat, Meds/Allgs Chart Reviewed, Consent Obtained/Reviewed and Anes Risks/Benef Reviewed Patient Risk: Low Procedure Risk: Low Anesthetic Plan Anesthetic Plan: GA Disposition: Standard PACU
[2025-07-25 07:55] VITALS: BMI 35.0
[2025-07-27 08:05] VITALS: BMI 33.6
[2025-07-27 08:12] VITALS: BP 133/90; PULSE 86; RESP 14; TEMP 36.9; O2SAT 97
[2025-07-27] MEDS: Lactated Ringers 1,000 ML 100 ML IVCONT (08:17)
--- NOTE | 2025-07-27 09:40 | MHC.SHP ---
Pre-Procedural Eval Section A - 24 Hr Update-Section A only Date of Service: 07/27/25 The patient is an INPATIENT: No Changes since office visit: No Cold of Flu in the past 2 weeks, No New Medical Problems, No Changes in Medication and No Patient answered all questions The patient has been examined within 24 hours of the surgical procedure. The History & Physical has been completed within 30 days and I have reviewed it.: Yes Section B - Complete if H&P > 30 days Chief Complaint: lesion of ulnar,carpal tunnel Allergies: Allergies Allergy/AdvReac Type Severity Reaction Status Date / Time Penicillins (PENICILLINS) Allergy Intermediate RASH Verified 07/27/25 07:59 seafood Allergy Intermediate Anaphylaxis Verified 07/27/25 07:59 Plan I have reviewed the history and physical and performed a pertinent physical examination on my patient. No changes have occurred unless specified. Time Spent With Patient Time: Total time managing care of this patient today ____ minutes.
--- NOTE | 2025-07-27 09:40 | W.PM.OPN ---
Operative Note Operative Note Date of Service: 07/27/25 Narrative: Operative Note Narrative: Preop diagnosis: 1. Right Cubital tunnel syndrome 2. Right carpal tunnel syndrome Postop diagnosis: Same Procedure: 1. Right Cubital Tunnel Release 2. Right carpal tunnel release Surgeon: Natalia Armstrong MD Vice President Education: Marcello WHITNEY Anesthesia: General Anesthesia Findings: Thickening and fibrosis about the ulnar nerve at the cubital tunnel with narrowing of the ulnar nerve as it passed from the cubital tunnel to between the heads of the FCU. Implants: none Tourniquet time: 18 minutes EBL: 5.0 ml Specimen: none Drains: None Complications: None Disposition: Brought to the recovery room in stable condition Plan: Follow-up in 10-14 days for wound check, and suture removal Indications: The patient is 59 years old with right cubital tunnel syndrome and right carpal tunnel syndrome . The risks and benefits of operative treatment, including but not limited to risk of damage to blood vessels, nerves, tendons, infection, recurrence, persistent pain or numbness, incomplete resolution of preoperative symptoms, or need for further surgery were discussed with the patient and they wished to proceed with surgery. Procedure: Once consent was obtained patient was brought back to the operating suite and placed in the operating table in a supine position. Perioperative antibiotics and anesthesia was administered by the anesthesia team. The limb was prepped and draped in a standard surgical fashion, and a sterile tourniquet applied to the proximal aspect of the right upper extremity. The limb was elevated exsanguinated with Esmarch bandage and the tourniquet inflated to 250 mm of mercury for a total tourniquet time of 18 minutes. Once assured that we had a good block, a 2.0 cm longitudinal incision was made centered over the right carpal tunnel. The incision was made through the skin to the subcutaneous tissues using a #15 blade. Dissection was made down to the level of the transverse carpal ligament with care being taken to protect the palmar cutaneous nerve. Once the transverse carpal ligament was clearly visualized, a longitudinal incision was made in the transverse carpal ligament 1st using a #15 blade, then using tenotomy scissors under direct visualization. Care was taken to look for and protect the motor branch of the median nerve when seen in this area. Once satisfied with our carpal tunnel release the wound was irrigated with normal saline. A 6 cm gently curved but longitudinally oriented incision was made centered over the cubital tunnel of the right upper extremity. Incision was made through the skin to the subcutaneous tissues using a # 15 Blade. I then dissected down to the level of the medial epicondyle and the cubital tunnel using tenotomy scissors. Care was taken to protect the medial antebrachial cutaneous nerve. The ulnar nerve was identified just posterior to the medial intermuscular septum. The ulnar nerve was released in a proximal to distal direction using tenotomy in iris scissors while directly visualizing and protecting the ulnar nerve. Thickening and fibrosis was appreciated about the ulnar nerve as it passed through the cubital tunnel. The ulnar nerve was assessed as I passed the elbow through full flexion and extension and was found to remain stable within its groove. At this point the tourniquet was deflated and hemostasis obtained with a brief period of local pressure and bipolar electrocautery. The wound was copiously irrigated with normal saline. The subcutaneous layer was closed with 4-0 Vicryl suture, and the skin edges were reapproximated with 5-0 nylon suture. The wound was infiltrated with some 1% lidocaine with epinephrine for postop pain control and sterile dressings were applied. The patient appears to have tolerated the procedure well and with no complications. All digits were well vascularized at the conclusion of the case.
[2025-07-27 11:12] VITALS: BP 120/56; PULSE 78; RESP 16; TEMP 36.6; O2SAT 97
[2025-07-27 11:15] VITALS: BP 113/70; PULSE 86; RESP 16; O2SAT 99
[2025-07-27 11:20] VITALS: BP 113/73; PULSE 98; RESP 15; O2SAT 99
[2025-07-27 11:25] VITALS: BP 130/83; PULSE 98; RESP 15; O2SAT 99
[2025-07-27 11:40] VITALS: BP 128/82; PULSE 88; RESP 12; TEMP 36.1; O2SAT 97
== END 2025-07-27 12:29 | disposition home or self-care (01) ==
PROVIDERS: PCP Internal Medicine; Visit Provider Orthopaedic Surgery
PROC: (CPT 64718; principal; 2025-07-27 09:40)
PROC: (CPT 64721; 2025-07-27 09:40)
DX: G56.01 Carpal tunnel syndrome, right upper limb (principal); G56.21 Lesion of ulnar nerve, right upper limb; R20.0 Anesthesia of skin; R20.2 Paresthesia of skin; D21.9 Benign neoplasm of connective and other soft tissue, unspecified; R73.02 Impaired glucose tolerance (oral); E66.9 Obesity, unspecified; Z68.35 Body mass index [BMI] 35.0-35.9, adult; M54.32 Sciatica, left side; M25.562 Pain in left knee; R42 Dizziness and giddiness; Z85.828 Personal history of other malignant neoplasm of skin; Z79.899 Other long term (current) drug therapy; Z98.51 Tubal ligation status; Z88.0 Allergy status to penicillin; Z91.013 Allergy to seafood
CPT/HCPCS: 64721; 64718; J0131; J0690; J1100; J1885; J2003; J2004; J2371; J2405; J2704; J3010

== ENCOUNTER → 2025-07-27 07:47 | Outpatient (BNV) | payer OTHER, SELFPAY | PROVIDERS: PCP Internal Medicine; Visit Provider Orthopaedic Surgery | DX: G56.21 Lesion of ulnar nerve, right upper limb (principal); G56.01 Carpal tunnel syndrome, right upper limb | CPT/HCPCS: 64718; 64721 ==

== ENCOUNTER 2025-08-09 12:31 | Outpatient (AMB) | payer OTHER, SELFPAY ==
[2025-08-09 13:05] VITALS: BMI 33.6
--- NOTE | 2025-08-09 13:05 | MHC.OFFVIS ---
Vital Signs 08/09/25 13:05 Height 5 ft 6 in Weight 208 lb BMI 33.6 Intake Visit Reasons: PO RT cubital/CTR 07/27/25 AR Intake Note: Amy is a 59 year old right hand dominant female who presents today for her first post operative visit s/p Right Cubital & Carpal Tunnel Release, DOS: 07/27/25, by Dr. Armstrong. Patient denies numbness, tingling, finger locking. Sutures removed in office and steri strips applied. State'S Attorney Required: Yes State'S Attorney Services: State'S Attorney Present State'S Attorney Name: Carmella ID#[id number] Allergies Penicillins (PENICILLINS) Allergy (Intermediate, Verified 08/09/25 13:06) RASH seafood Allergy (Intermediate, Verified 08/09/25 13:06) Anaphylaxis HPI HPI PO RT cubital/CTR 07/27/25 AR: Details: Amy is a 59 year old right hand dominant female who presents today for her first post operative visit s/p Right Cubital & Carpal Tunnel Release, DOS: 07/27/25, by Dr. Armstrong. Patient denies numbness, tingling, finger locking. Sutures removed in office and steri strips applied. Patient does report some redness around the cubital tunnel incision site. REPLACED BY [facility] Medical History Fibroid Physical exam Obesity (BMI 35.0-39.9 without comorbidity) Left sided sciatica Impaired glucose tolerance Vertigo Left knee pain Knee pain Surgical History History of esophagogastroduodenoscopy (EGD) H/O colonoscopy Skin cancer History of tubal ligation Family History Father Throat cancer Mother Diabetes Hypertension Daughter In good health Sister In good health Son In good health Brother In good health Social History Household Members: Spouse Housing: Apartment Are you a primary resident care technician to a significant other at home: No Do you presently have visiting nurse or other home services: No Alcohol intake: current Alcohol intake frequency: holidays/special occasions only Alcohol type: wine Patient Tobacco Use Status: Never used Tobacco e-Cigarette/Vaping Use: Never Used Second Hand Smoke Exposure: No service: No Current occupational status: employed 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 Neuro: Normal sensation of the tips of all digits of the right hand at this time Vascular: Cap refill brisk Pain: Minimal tenderness to palpation about incision site on medial right elbow No tenderness to palpation about the incision site over volar right wrist ROM: Patient was able to make a closed fist and extend all digits of the right hand fully Range of motion of the right elbow full and intact Skin: Well approximated and well healing incision sites noted on volar right wrist and medial right elbow No lacerations or abrasions. General: There is some very mild erythema surrounding the incision site on the medial right elbow No ecchymosis, extensive erythema, or evidence of infection. Psych: Appears grossly normal Affect normal Attitude cooperative Assessment & Plan Assessment & Plan (1) Exposure to blood or body fluid: Code(s): Z77.21 - Contact with and (suspected) exposure to potentially hazardous body fluids Category: Medical Plan 1. Status post right cubital and right carpal tunnel releases DOS 07/27/2025 With symptomatic resolution postoperatively Patient appears to be recovering well postoperatively Patient is educated about the typical recovery course No under water times one-week, 2 lb weight limit x2 weeks Out of an abundance of caution, due to the very mild redness surrounding the incision site on the right elbow, patient was ordered a one-week course of cephalexin Patient is educated and worrisome signs and symptoms, and should call us if they experience any of these, including but not limited to redness, swelling, increased pain, and discharge Follow-up in 1 week for wound check Of note, while removing sutures, the MA working with me today, Jasper Galo, did experience an exposure to the patient's blood via scalpel, therefore the patient is ordered labs for hepatitis-B, hepatitis-C, and HIV Patient was directed to the laboratory to get these labs drawn immediately following her visit Patient understands this and is amenable to this plan Orders: Orders Hepatitis C Antibody Today Z77.21 - Contact with and (suspected) exposure to potentially hazardous body fluids HIV Ab/Ag Today Z77.21 - Contact with and (suspected) exposure to potentially hazardous body fluids Hepatitis B Profile Today Z77.21 - Contact with and (suspected) exposure to potentially hazardous body fluids Medications: New cephalexin 500 mg PO Q6H 28 caps 0RF 7 days Coding Level of Care Code Global (20619) Diagnoses Exposure to blood or body fluid Z77.21
== END 2025-08-09 13:37 | disposition home or self-care (01) ==
LOC: HO.HOS 12:31
PROVIDERS: PCP Internal Medicine
DX: Z77.21 Contact with and (suspected) exposure to potentially hazardous body fluids (principal)
CPT/HCPCS: 99024

== ENCOUNTER 2025-08-09 12:31 | Outpatient (REF) | payer OTHER, SELFPAY ==
[2025-08-09 15:29] LABS: HBS Num1 0.00 mIU/mL (0-7.99); HBc Num1 0.09 S/CO (0.00-0.79); HBsAGNum1 0.28 S/CO (0.00-0.99); HIV Num 1 0.06 S/CO (0.00-0.99); Hepatitis B Surface Antigen Negative (Negative); ~HepC Num1 0.13 S/CO (0.00-0.79); ~Hepatitis B Surface Antibody NONREACTIVE (Nonreactive); ~Hepatitis C Antibody Nonreactive (Nonreactive)
== END 2025-08-09 12:32 | disposition home or self-care (01) ==
LOC: HO.LAB 12:31
PROVIDERS: PCP Internal Medicine
DX: Z77.21 Contact with and (suspected) exposure to potentially hazardous body fluids (principal); Z11.4 Encounter for screening for human immunodeficiency virus [HIV]; Z11.59 Encounter for screening for other viral diseases
CPT/HCPCS: 36415; 86704; 86706; 86803; 87340; 87389; 99212